=== PATIENT | female | born 1955 | race Caucasian/White ===

== ENCOUNTER 2023-06-22 12:57 | Outpatient (REF) | payer MEDICARE, SELFPAY ==
[2023-06-22 13:05] LABS: MANUAL DIFF FLAG NO
[2023-06-22 13:10] LABS: Basophils Percent Auto 0.3 % (0-2); Eosinophils Absolute Auto 0.1 X10*3/uL (0.0-0.4); Eosinophils Percent Auto 0.7 % (0-4); Hematocrit 26.1 % (37.0-47.0); Imm Gran Abs Auto 0.28 X10*3/uL (0.00-0.03); Imm Gran Pct Auto 1.8 % (0.0-0.4); Lymphocytes Absolute Auto 1.9 X10*3/uL (1.2-4.9); Lymphocytes Percent Auto 12.4 % (20-40); Mean Corpuscular HGB Conc 30.7 g/dl (31.0-35.0); Mean Corpuscular Hemoglobin 27.7 pg (27.0-33.0); Mean Corpuscular Volume 90.3 fL (80.0-98.0); Mean Platelet Volume 10.6 fL (9.4-12.3); Monocytes Percent Auto 6.2 % (2-11); NRBC Pct Auto 0.3 /100WBC (0.0-0.2); Neutrophils Absolute Auto 12.1 x10*3/uL (2.0-8.3); Neutrophils Percent Auto 78.6 % (45-73); Platelet Count 220 X10*3/uL (160-400); Red Blood Count 2.89 X10*6/uL (4.20-5.50); Red Cell Distribution Width 15.4 % (11.0-16.0); White Blood Count 15.4 X10*3/uL (4.8-10.8)
[2023-06-22 13:48] LABS: Erythrocyte Sedimentation Rate 56 MM/HR (0-20)
[2023-06-22 13:58] LABS: Alanine Aminotransferase 11 U/L (0-31); Alkaline Phosphatase 47 U/L (39-117); Anion Gap 15 (12-20); Aspartate Amino Transferase 17 U/L (5-31); Bilirubin Direct < 0.2 mg/dL (0.0-0.5); Bilirubin Total 0.1 mg/dL (0.0-1.0); Blood Urea Nitrogen 27 mg/dL (9-16); Calcium 8.8 mg/dL (8.4-10.2); Carbon Dioxide 23 mmol/L (22-29); Chloride 106 mmol/L (96-108); Estimated Glomerular Filt Rate 29; Glucose Random 173 mg/dL (60-115); Potassium 3.6 mmol/L (3.3-5.1); Sodium 140 mmol/L (135-145); Total Protein 4.9 g/dL (6.5-8.0)
== END 2023-06-22 12:58 | disposition home or self-care (01) ==
LOC: HO.HVNA 12:57
PROVIDERS: Visit Provider Internal Medicine Infectious Disease
DX: S21.109D Unspecified open wound of unspecified front wall of thorax without penetration into thoracic cavity, subsequent encounter (principal); Z79.2 Long term (current) use of antibiotics
CPT/HCPCS: 36415; 80048; 80076; 85025; 85652; 86140

== ENCOUNTER 2023-06-29 13:34 | Outpatient (REF) | payer MEDICARE, SELFPAY | END 2023-06-29 13:35 | disposition home or self-care (01) | LOC: HO.LNP 13:34 | PROVIDERS: Visit Provider Internal Medicine Infectious Disease | DX: S21.109D Unspecified open wound of unspecified front wall of thorax without penetration into thoracic cavity, subsequent encounter (principal); Z79.2 Long term (current) use of antibiotics; X58.XXXD Exposure to other specified factors, subsequent encounter | CPT/HCPCS: 80051; 80076; 82565; 82947; 84520; 85025; 85652; 86140 ==

== ENCOUNTER 2023-07-06 16:45 | Outpatient (REF) | payer MEDICARE, SELFPAY ==
[2023-07-06 16:51] LABS: MANUAL DIFF FLAG NO
[2023-07-06 16:55] LABS: Basophils Percent Auto 0.2 % (0-2); Eosinophils Percent Auto 0.2 % (0-4); Hematocrit 27.7 % (37.0-47.0); Hemoglobin 8.3 g/dl (12.0-16.0); Imm Gran Abs Auto 0.12 X10*3/uL (0.00-0.03); Lymphocytes Absolute Auto 0.8 X10*3/uL (1.2-4.9); Lymphocytes Percent Auto 6.8 % (20-40); Mean Corpuscular Volume 90.2 fL (80.0-98.0); Mean Platelet Volume 11.5 fL (9.4-12.3); Monocytes Absolute Auto 0.3 X10*3/uL (0.1-1.2); Monocytes Percent Auto 2.5 % (2-11); Neutrophils Absolute Auto 11.1 x10*3/uL (2.0-8.3); Neutrophils Percent Auto 89.3 % (45-73); Platelet Count 254 X10*3/uL (160-400); Red Blood Count 3.07 X10*6/uL (4.20-5.50); Red Cell Distribution Width 16.1 % (11.0-16.0); White Blood Count 12.4 X10*3/uL (4.8-10.8)
[2023-07-06 17:24] LABS: Alanine Aminotransferase 17 U/L (0-31); Albumin Level 3.3 g/dL (3.5-5.0); Alkaline Phosphatase 46 U/L (39-117); Anion Gap 16 (12-20); Aspartate Amino Transferase 30 U/L (5-31); Bilirubin Direct < 0.2 mg/dL (0.0-0.5); Bilirubin Total 0.1 mg/dL (0.0-1.0); Blood Urea Nitrogen 24 mg/dL (9-16); C Reactive Protein 0.49 mg/dL (< or = 0.50); Calcium 8.9 mg/dL (8.4-10.2); Carbon Dioxide 20 mmol/L (22-29); Chloride 104 mmol/L (96-108); Estimated Glomerular Filt Rate 32; Glucose Random 173 mg/dL (60-115); Potassium 4.1 mmol/L (3.3-5.1); Sodium 136 mmol/L (135-145); Total Protein 5.8 g/dL (6.5-8.0)
== END 2023-07-06 16:46 | disposition home or self-care (01) ==
LOC: HO.LNP 16:45
PROVIDERS: Visit Provider Internal Medicine Infectious Disease
DX: S21.109D Unspecified open wound of unspecified front wall of thorax without penetration into thoracic cavity, subsequent encounter (principal); X58.XXXD Exposure to other specified factors, subsequent encounter
CPT/HCPCS: 80053; 82248; 85025; 86140

== ENCOUNTER 2023-07-13 11:27 | Outpatient (REF) | payer MEDICARE, SELFPAY ==
[2023-07-13 11:38] LABS: MANUAL DIFF FLAG NO
[2023-07-13 11:50] LABS: Basophils Absolute Auto 0.1 X10*3/uL (0.0-0.2); Basophils Percent Auto 0.5 % (0-2); Eosinophils Absolute Auto 0.2 X10*3/uL (0.0-0.4); Eosinophils Percent Auto 1.5 % (0-4); Hemoglobin 8.7 g/dl (12.0-16.0); Imm Gran Abs Auto 0.09 X10*3/uL (0.00-0.03); Imm Gran Pct Auto 0.8 % (0.0-0.4); Lymphocytes Absolute Auto 2.3 X10*3/uL (1.2-4.9); Lymphocytes Percent Auto 18.9 % (20-40); Mean Corpuscular HGB Conc 31.1 g/dl (31.0-35.0); Mean Corpuscular Hemoglobin 27.4 pg (27.0-33.0); Mean Corpuscular Volume 88.3 fL (80.0-98.0); Mean Platelet Volume 11.5 fL (9.4-12.3); Monocytes Absolute Auto 0.9 X10*3/uL (0.1-1.2); Monocytes Percent Auto 7.2 % (2-11); Neutrophils Absolute Auto 8.5 x10*3/uL (2.0-8.3); Neutrophils Percent Auto 71.1 % (45-73); Platelet Count 273 X10*3/uL (160-400); Red Blood Count 3.17 X10*6/uL (4.20-5.50); Red Cell Distribution Width 15.7 % (11.0-16.0)
[2023-07-13 12:20] LABS: Alanine Aminotransferase 21 U/L (0-31); Albumin Level 3.3 g/dL (3.5-5.0); Alkaline Phosphatase 51 U/L (39-117); Anion Gap 12 (12-20); Aspartate Amino Transferase 23 U/L (5-31); Bilirubin Direct < 0.2 mg/dL (0.0-0.5); Bilirubin Total 0.2 mg/dL (0.0-1.0); Blood Urea Nitrogen 19 mg/dL (9-16); C Reactive Protein 0.53 mg/dL (< or = 0.50); Calcium 9.4 mg/dL (8.4-10.2); Carbon Dioxide 27 mmol/L (22-29); Chloride 106 mmol/L (96-108); Estimated Glomerular Filt Rate 35; Glucose Random 109 mg/dL (60-115); Potassium 4.1 mmol/L (3.3-5.1); Sodium 141 mmol/L (135-145); Total Protein 5.8 g/dL (6.5-8.0)
[2023-07-13 15:10] LABS: Erythrocyte Sedimentation Rate 38 MM/HR (0-20)
== END 2023-07-13 11:28 | disposition home or self-care (01) ==
LOC: HO.HVNA 11:27
PROVIDERS: Visit Provider Internal Medicine Infectious Disease
DX: S21.109D Unspecified open wound of unspecified front wall of thorax without penetration into thoracic cavity, subsequent encounter (principal); X58.XXXD Exposure to other specified factors, subsequent encounter
CPT/HCPCS: 36415; 80053; 82248; 85025; 85652; 86140

== ENCOUNTER 2023-07-20 13:34 | Outpatient (REF) | payer MEDICARE, SELFPAY ==
[2023-07-20 13:41] LABS: MANUAL DIFF FLAG NO
[2023-07-20 13:46] LABS: Basophils Absolute Auto 0.1 X10*3/uL (0.0-0.2); Basophils Percent Auto 0.5 % (0-2); Eosinophils Absolute Auto 0.3 X10*3/uL (0.0-0.4); Eosinophils Percent Auto 2.1 % (0-4); Hematocrit 26.1 % (37.0-47.0); Imm Gran Pct Auto 0.8 % (0.0-0.4); Lymphocytes Absolute Auto 1.8 X10*3/uL (1.2-4.9); Lymphocytes Percent Auto 14.3 % (20-40); Mean Corpuscular HGB Conc 30.7 g/dl (31.0-35.0); Mean Corpuscular Hemoglobin 26.6 pg (27.0-33.0); Mean Corpuscular Volume 86.7 fL (80.0-98.0); Mean Platelet Volume 11.2 fL (9.4-12.3); Monocytes Absolute Auto 0.9 X10*3/uL (0.1-1.2); Monocytes Percent Auto 7.3 % (2-11); Neutrophils Absolute Auto 9.3 x10*3/uL (2.0-8.3); Platelet Count 244 X10*3/uL (160-400); Red Blood Count 3.01 X10*6/uL (4.20-5.50); Red Cell Distribution Width 15.5 % (11.0-16.0); White Blood Count 12.4 X10*3/uL (4.8-10.8)
[2023-07-20 14:12] LABS: Alanine Aminotransferase 14 U/L (0-31); Albumin Level 3.2 g/dL (3.5-5.0); Alkaline Phosphatase 54 U/L (39-117); Anion Gap 14 (12-20); Aspartate Amino Transferase 18 U/L (5-31); Bilirubin Direct < 0.2 mg/dL (0.0-0.5); Bilirubin Total 0.2 mg/dL (0.0-1.0); Blood Urea Nitrogen 24 mg/dL (9-16); C Reactive Protein 4.04 mg/dL (< or = 0.50); Carbon Dioxide 24 mmol/L (22-29); Chloride 105 mmol/L (96-108); Estimated Glomerular Filt Rate 32; Glucose Random 123 mg/dL (60-115); Potassium 4.1 mmol/L (3.3-5.1); Sodium 139 mmol/L (135-145); Total Protein 5.3 g/dL (6.5-8.0)
[2023-07-20 14:23] LABS: Erythrocyte Sedimentation Rate 53 MM/HR (0-20)
== END 2023-07-20 13:35 | disposition home or self-care (01) ==
LOC: HO.HVNA 13:34
PROVIDERS: Visit Provider Internal Medicine Infectious Disease
DX: S21.109D Unspecified open wound of unspecified front wall of thorax without penetration into thoracic cavity, subsequent encounter (principal); X58.XXXD Exposure to other specified factors, subsequent encounter
CPT/HCPCS: 36415; 80053; 82248; 85025; 85652; 86140

== ENCOUNTER 2023-07-27 14:31 | Outpatient (REF) | payer MEDICARE, SELFPAY ==
[2023-07-27 14:40] LABS: Basophils Percent Auto 0.1 % (0-2); Eosinophils Percent Auto 0.2 % (0-4); Hematocrit 28.5 % (37.0-47.0); Hemoglobin 8.6 g/dl (12.0-16.0); Imm Gran Pct Auto 0.7 % (0.0-0.4); Lymphocytes Absolute Auto 0.7 X10*3/uL (1.2-4.9); Lymphocytes Percent Auto 4.8 % (20-40); MANUAL DIFF FLAG SCAN; Mean Corpuscular HGB Conc 30.2 g/dl (31.0-35.0); Mean Corpuscular Hemoglobin 26.2 pg (27.0-33.0); Mean Corpuscular Volume 86.9 fL (80.0-98.0); Mean Platelet Volume 10.7 fL (9.4-12.3); Monocytes Absolute Auto 0.3 X10*3/uL (0.1-1.2); Neutrophils Absolute Auto 12.9 x10*3/uL (2.0-8.3); Neutrophils Percent Auto 92.2 % (45-73); Platelet Count 263 X10*3/uL (160-400); Red Blood Count 3.28 X10*6/uL (4.20-5.50); Red Cell Distribution Width 15.3 % (11.0-16.0); SCAN SMEAR FLAG 1
[2023-07-27 15:21] LABS: Erythrocyte Sedimentation Rate 53 MM/HR (0-20)
[2023-07-27 15:28] LABS: Alanine Aminotransferase 14 U/L (0-31); Albumin Level 3.5 g/dL (3.5-5.0); Alkaline Phosphatase 62 U/L (39-117); Anion Gap 13 (12-20); Aspartate Amino Transferase 20 U/L (5-31); Bilirubin Total 0.2 mg/dL (0.0-1.0); Blood Urea Nitrogen 25 mg/dL (9-16); C Reactive Protein 4.52 mg/dL (< or = 0.50); Calcium 9.1 mg/dL (8.4-10.2); Carbon Dioxide 23 mmol/L (22-29); Chloride 102 mmol/L (96-108); Estimated Glomerular Filt Rate 28; Glucose Random 257 mg/dL (60-115); Potassium 4.3 mmol/L (3.3-5.1); Sodium 134 mmol/L (135-145); Total Protein 6.2 g/dL (6.5-8.0)
[2023-07-27 15:33] LABS: SLIDE REVIEW VERIFIED
== END 2023-07-27 14:32 | disposition home or self-care (01) ==
LOC: HO.HVNA 14:31
PROVIDERS: Visit Provider Internal Medicine Infectious Disease
DX: S21.109D Unspecified open wound of unspecified front wall of thorax without penetration into thoracic cavity, subsequent encounter (principal); X58.XXXD Exposure to other specified factors, subsequent encounter
CPT/HCPCS: 36415; 80053; 85025; 85652; 86140

== ENCOUNTER 2023-07-29 10:52 | Outpatient (AMB) | payer MEDICARE, SELFPAY ==
[2023-07-29 10:59] VITALS: BP 120/70; BMI 29.1
--- NOTE | 2023-07-29 10:59 | HO.NEPHOV_ITS ---
HPI HPI Comments History of Present Illness Details I had the privilege of seeing Frida in follow-up of her chronic kidney disease. She recently was admitted with a right-sided chest/clavicle pain and erythema. CT chest and soft tissue of the neck was obtained which showed sternal dehiscence with erosive changes, suggestive for osteomyelitis with overlying cellulitis. She also had a few foci of gas, septic arthritis of the left sternoclavicular joint with associated effusion suggestive of possible right sternal clavicular joint septic arthritis. She underwent sternal wound debridement, sternal wire removal, washout, wound VAC placement with Dr. Plaafox . Intraoperative findings showed a sinus tract of only 2-3 mm. Culture was positive for acute osteomyelitis. She return to operating room on 16 of June for repeat washout. Cultures later showed no growth & therefore was treated with a 6 weeks of ceftriaxone and 3 weeks of metronidazole. She was closely followed up by Infectious Disease as well as Cardiac surgery. She is due to have wound VAC removal and sternal flap tomorrow. She denies any night sweats, fever, fatigue, nausea vomiting or diarrhea. [facility] Medical History (Updated 07/29/23 @ 11:26 by Sreekanth Avalos MD) Hypertension Rheumatoid arthritis Chronic kidney disease, stage 3b Surgical History (Updated 07/29/23 @ 10:57 by Winter Berry MA) S/P AVR S/P CABG (coronary artery bypass graft) Family History (Updated 07/29/23 @ 11:06 by Winter Berry MA) Mother Hypertension Social History (Updated 07/29/23 @ 11:05 by Winter Berry MA) Alcohol intake: never Patient Tobacco Use Status: Never used Tobacco Vital Signs 07/29/23 10:59 Height 5 ft 2 in Weight 159 lb 4 oz BMI 29.1 BP 120/70 Blood Pressure Location Lt brachial Position Sitting Physical Exam Vital Signs: Last Vital Signs BP 120/70 07/29/23 10:59 BMI result Body Mass Index 29.1 Const Other: Has a wound vac on her sternum General: comfortable and no acute distress Orientation/consciousness: patient oriented x3 HEENT Head: Yes normocephalic Mouth: Normal oral and palatal mucosa present Eyes EOM: EOMs intact bilaterally Neck Neck: Yes supple Resp Auscultation: clear to auscultation bilaterally Cardio Jugular venous distension: no JVD Rate: regular rate Heart sounds: Murmur heart sound present GI Palpation (GI): Soft to palpation Auscultation: normal bowel sounds General: Yes no CVA tenderness Back/Spine/Pelvis Back: no CVA tenderness Skin General skin exam: no rashes or lesions noted Neuro General: patient oriented x3 and moves all extremities Extrem General: Yes no pedal edema Assessment & Plan Assessment & Plan (1) Chronic kidney disease, stage 3b: Code(s): N18.32 - Chronic kidney disease, stage 3b (2) Hypertension: Code(s): I10 - Essential (primary) hypertension Plan Frida has a chronic kidney disease due to vascular disease. She has longstanding history of rheumatoid arthritis. She had ATN during her cardiac surgery and postoperatively. Her leflunomide had been on hold. She has no significant proteinuria. Her blood pressure has been at goal. Her urine output is good. Her volume status is optimal. She has a sternal wound vac which is going to be removed along with reconstruction surgery tomorrow. She does not take any nonsteroidal anti-inflammatory medications. I plan to do a Doppler of her renal arteries with time. All her and her 's questions were answered. Follow-up blood work ordered. Time spent during encounter, retrieval of data and documentation 31 minutes. Orders: Orders Electrolytes Today I10 - Essential (primary) hypertension, N18.32 - Chronic kidney disease, stage 3b Blood Urea Nitrogen Today I10 - Essential (primary) hypertension, N18.32 - Chronic kidney disease, stage 3b Creatinine Today I10 - Essential (primary) hypertension, N18.32 - Chronic kidney disease, stage 3b Calcium Today I10 - Essential (primary) hypertension, N18.32 - Chronic kidney disease, stage 3b Complete Blood Count Auto Diff Today I10 - Essential (primary) hypertension, N18.32 - Chronic kidney disease, stage 3b Coding Level of Care Code Est Pt Level 4 (90399) Diagnoses Chronic kidney disease, stage 3b N18.32 Hypertension I10
== END 2023-07-29 11:30 | disposition home or self-care (01) ==
PROVIDERS: Visit Provider Internal Medicine Nephrology
DX: N18.32 Chronic kidney disease, stage 3b (principal); I12.9 Hypertensive chronic kidney disease with stage 1 through stage 4 chronic kidney disease, or unspecified chronic kidney disease
CPT/HCPCS: 99214

== ENCOUNTER → 2023-07-29 10:52 | Outpatient (BNVA) | payer MEDICARE, SELFPAY | PROVIDERS: Visit Provider Internal Medicine Nephrology | DX: I12.9 Hypertensive chronic kidney disease with stage 1 through stage 4 chronic kidney disease, or unspecified chronic kidney disease (principal); N18.32 Chronic kidney disease, stage 3b | CPT/HCPCS: 99212 ==

== ENCOUNTER 2023-08-03 14:24 | Outpatient (REF) | payer MEDICARE, SELFPAY ==
[2023-08-03 14:32] LABS: MANUAL DIFF FLAG NO
[2023-08-03 14:35] LABS: Basophils Absolute Auto 0.1 X10*3/uL (0.0-0.2); Basophils Percent Auto 0.4 % (0-2); Eosinophils Absolute Auto 0.2 X10*3/uL (0.0-0.4); Eosinophils Percent Auto 1.6 % (0-4); Hematocrit 22.7 % (37.0-47.0); Imm Gran Abs Auto 0.08 X10*3/uL (0.00-0.03); Imm Gran Pct Auto 0.6 % (0.0-0.4); Lymphocytes Absolute Auto 0.9 X10*3/uL (1.2-4.9); Lymphocytes Percent Auto 7.2 % (20-40); Mean Corpuscular HGB Conc 30.4 g/dl (31.0-35.0); Mean Corpuscular Hemoglobin 26.1 pg (27.0-33.0); Mean Platelet Volume 11.3 fL (9.4-12.3); Monocytes Absolute Auto 0.5 X10*3/uL (0.1-1.2); Neutrophils Absolute Auto 10.8 x10*3/uL (2.0-8.3); Neutrophils Percent Auto 86.2 % (45-73); Platelet Count 207 X10*3/uL (160-400); Red Blood Count 2.64 X10*6/uL (4.20-5.50); Red Cell Distribution Width 15.5 % (11.0-16.0); White Blood Count 12.5 X10*3/uL (4.8-10.8)
[2023-08-03 14:54] LABS: Hemoglobin 6.9 g/dl (12.0-16.0)
[2023-08-03 15:15] LABS: Erythrocyte Sedimentation Rate 64 MM/HR (0-20)
[2023-08-03 15:21] LABS: Alanine Aminotransferase 7 U/L (0-31); Albumin Level 2.6 g/dL (3.5-5.0); Alkaline Phosphatase 45 U/L (39-117); Anion Gap 11 (12-20); Aspartate Amino Transferase 17 U/L (5-31); Bilirubin Direct 0.1 mg/dL (0.0-0.5); Bilirubin Total 0.3 mg/dL (0.0-1.0); Blood Urea Nitrogen 27 mg/dL (9-16); C Reactive Protein 13.44 mg/dL (< or = 0.50); Calcium 8.1 mg/dL (8.4-10.2); Carbon Dioxide 26 mmol/L (22-29); Chloride 103 mmol/L (96-108); Estimated Glomerular Filt Rate 29; Glucose Random 108 mg/dL (60-115); Potassium 4.2 mmol/L (3.3-5.1); Sodium 136 mmol/L (135-145); Total Protein 4.4 g/dL (6.5-8.0)
== END 2023-08-03 14:25 | disposition home or self-care (01) ==
LOC: HO.HVNA 14:24
PROVIDERS: Visit Provider Internal Medicine Infectious Disease
DX: S21.109D Unspecified open wound of unspecified front wall of thorax without penetration into thoracic cavity, subsequent encounter (principal); X58.XXXD Exposure to other specified factors, subsequent encounter
CPT/HCPCS: 36415; 80053; 82248; 85025; 85652; 86140

== ENCOUNTER 2023-08-10 14:06 | Outpatient (REF) | payer MEDICARE, SELFPAY ==
[2023-08-10 14:10] LABS: MANUAL DIFF FLAG NO
[2023-08-10 14:18] LABS: Basophils Absolute Auto 0.1 X10*3/uL (0.0-0.2); Basophils Percent Auto 0.4 % (0-2); Eosinophils Absolute Auto 0.2 X10*3/uL (0.0-0.4); Eosinophils Percent Auto 1.5 % (0-4); Hematocrit 26.7 % (37.0-47.0); Hemoglobin 8.1 g/dl (12.0-16.0); Imm Gran Pct Auto 0.8 % (0.0-0.4); Lymphocytes Absolute Auto 1.2 X10*3/uL (1.2-4.9); Lymphocytes Percent Auto 9.7 % (20-40); Mean Corpuscular HGB Conc 30.3 g/dl (31.0-35.0); Mean Corpuscular Volume 85.9 fL (80.0-98.0); Mean Platelet Volume 11.6 fL (9.4-12.3); Monocytes Absolute Auto 0.5 X10*3/uL (0.1-1.2); Monocytes Percent Auto 3.6 % (2-11); NRBC Pct Auto 0.2 /100WBC (0.0-0.2); Neutrophils Absolute Auto 10.4 x10*3/uL (2.0-8.3); Platelet Count 260 X10*3/uL (160-400); Red Blood Count 3.11 X10*6/uL (4.20-5.50); Red Cell Distribution Width 16.5 % (11.0-16.0); White Blood Count 12.3 X10*3/uL (4.8-10.8)
[2023-08-10 14:58] LABS: Erythrocyte Sedimentation Rate 53 MM/HR (0-20)
[2023-08-10 15:11] LABS: Alanine Aminotransferase 9 U/L (0-31); Albumin Level 2.9 g/dL (3.5-5.0); Alkaline Phosphatase 50 U/L (39-117); Anion Gap 10 (12-20); Aspartate Amino Transferase 23 U/L (5-31); Bilirubin Direct < 0.2 mg/dL (0.0-0.5); Bilirubin Total 0.2 mg/dL (0.0-1.0); Blood Urea Nitrogen 25 mg/dL (9-16); C Reactive Protein 3.12 mg/dL (< or = 0.50); Calcium 8.6 mg/dL (8.4-10.2); Carbon Dioxide 27 mmol/L (22-29); Chloride 103 mmol/L (96-108); Estimated Glomerular Filt Rate 31; Glucose Random 85 mg/dL (60-115); Potassium 4.1 mmol/L (3.3-5.1); Sodium 136 mmol/L (135-145); Total Protein 5.5 g/dL (6.5-8.0)
== END 2023-08-10 14:07 | disposition home or self-care (01) ==
LOC: HO.HVNA 14:06
PROVIDERS: Visit Provider Internal Medicine Infectious Disease
DX: S91.109D Unspecified open wound of unspecified toe(s) without damage to nail, subsequent encounter (principal); X58.XXXD Exposure to other specified factors, subsequent encounter
CPT/HCPCS: 36415; 80053; 82248; 85025; 85652; 86140

== ENCOUNTER 2023-09-07 11:16 | Outpatient (AMB) | payer MEDICARE, SELFPAY ==
--- NOTE | 2023-09-07 11:26 | HO.NEPHOV_ITS ---
HPI HPI Comments History of Present Illness Details I had the privilege of seeing Frida in follow-up of her chronic kidney disease. She had right sternal clavicular joint septic arthritis. She underwent sternal wound debridement, sternal wire removal, washout, wound VAC placement with Dr. Palafox . She was treated with a 6 weeks of ceftriaxone and 3 weeks of metronidazole. She was closely followed up by Infectious Disease as well as Cardiac surgery. She had wound VAC removal and sternal flap. She denies any night sweats, fever, fatigue, nausea vomiting or diarrhea.She feels improved. Her last serum creatinine was around 1.6 PFSH Medical History (Updated 09/07/23 @ 13:58 by Sreekanth Avalos MD) Hypertension Rheumatoid arthritis Chronic kidney disease, stage 3b Surgical History S/P AVR S/P CABG (coronary artery bypass graft) Family History Mother Hypertension Social History Alcohol intake: never Patient Tobacco Use Status: Never used Tobacco Vital Signs 09/07/23 11:27 Height 5 ft 2 in Weight 153 lb 2 oz BMI 28.0 BP 126/82 Blood Pressure Location Lt brachial Position Sitting Physical Exam Vital Signs: Last Vital Signs BP 126/82 09/07/23 11:27 BMI result Body Mass Index 28.0 Const General: comfortable and no acute distress Orientation/consciousness: patient oriented x3 HEENT Head: Yes normocephalic Mouth: Normal oral and palatal mucosa present Eyes EOM: EOMs intact bilaterally Neck Neck: Yes supple Resp Auscultation: clear to auscultation bilaterally Cardio Jugular venous distension: no JVD Rate: regular rate GI Palpation (GI): Soft to palpation Auscultation: normal bowel sounds General: Yes no CVA tenderness Back/Spine/Pelvis Back: no CVA tenderness Skin General skin exam: no rashes or lesions noted Neuro General: patient oriented x3 and moves all extremities Extrem General: Yes no pedal edema Assessment & Plan Assessment & Plan (1) Chronic kidney disease, stage 3b: Code(s): N18.32 - Chronic kidney disease, stage 3b (2) Hypertension: Code(s): I10 - Essential (primary) hypertension Qualifiers: Hypertension type: primary hypertension Qualified Code(s): I10 - Essential (primary) hypertension Plan Frida has a chronic kidney disease due to vascular disease. She has longstanding history of rheumatoid arthritis. She had ATN during her cardiac surgery and postoperatively. Her leflunomide had been on hold. She has no significant proteinuria. Her blood pressure has been at goal. Her urine output is good. Her volume status is optimal. She does not take any nonsteroidal anti- inflammatory medications. I plan to do a Doppler of her renal arteries with time. All her and her 's questions were answered. No medicaitons were changed today.Follow-up blood work ordered; F/U given Orders: Orders Electrolytes Today I10 - Essential (primary) hypertension, N18.32 - Chronic kidney disease, stage 3b Protein Creatinine Ratio, Ur Today I10 - Essential (primary) hypertension, N18.32 - Chronic kidney disease, stage 3b Complete Blood Count Auto Diff Today I10 - Essential (primary) hypertension, N18.32 - Chronic kidney disease, stage 3b Creatinine Today I10 - Essential (primary) hypertension, N18.32 - Chronic kidney disease, stage 3b Blood Urea Nitrogen Today I10 - Essential (primary) hypertension, N18.32 - Chronic kidney disease, stage 3b Medications: New ferrous sulfate 325 mg PO BID 180 tabs 3RF 90 days Coding Level of Care Code Est Pt Level 3 (97258) Diagnoses Chronic kidney disease, stage 3b N18.32 Primary hypertension I10 Hypertension type: primary hypertension Results Reviewed Nephrology Results: Hgb 8.1 g/dl (12.0-16.0) L 08/10/23 WBC 12.3 X10*3/uL (4.8-10.8) H 08/10/23 Plt Count 260 X10*3/uL (160-400) 08/10/23 Sodium 136 mmol/L (135-145) 08/10/23 Potassium 4.1 mmol/L (3.3-5.1) 08/10/23 Chloride 103 mmol/L (96-108) 08/10/23 Carbon Dioxide 27 mmol/L (22-29) 08/10/23 BUN 25 mg/dL (9-16) H 08/10/23 Creatinine 1.64 mg/dL (0.5-1.4) H 08/10/23 Calcium 8.6 mg/dL (8.4-10.2) 08/10/23
[2023-09-07 11:27] VITALS: BP 126/82; BMI 28.0
== END 2023-09-07 11:58 | disposition home or self-care (01) ==
PROVIDERS: Visit Provider Internal Medicine Nephrology
DX: N18.32 Chronic kidney disease, stage 3b (principal); I10 Essential (primary) hypertension
CPT/HCPCS: 99213

== ENCOUNTER → 2023-09-07 11:16 | Outpatient (BNVA) | payer MEDICARE, SELFPAY | PROVIDERS: Visit Provider Internal Medicine Nephrology | DX: I12.9 Hypertensive chronic kidney disease with stage 1 through stage 4 chronic kidney disease, or unspecified chronic kidney disease (principal); N18.32 Chronic kidney disease, stage 3b | CPT/HCPCS: 99212 ==

== ENCOUNTER 2024-01-21 11:28 | Outpatient (AMB) | payer MEDICARE, SELFPAY ==
--- NOTE | 2024-01-21 12:14 | HO.NEPHOV_ITS ---
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 She had right sternal clavicular joint septic arthritis & underwent sternal wound debridement, sternal wire removal, washout, wound VAC placement with Dr. Palafox . She was treated with a 6 weeks of ceftriaxone and 3 weeks of metro nidazole. She was closely followed up by Infectious Disease as well as Cardiac surgery. She had wound VAC removal and sternal flap. She denies any night sweats, fever, fatigue, nausea vomiting or diarrhea.She feels tired. Her last serum creatinine was around 1.6 . Her Hb has been around 8.0. She is still getting Rheumatoid arthritis flare. She remains on Arava and lower dose of prednsione. She has been having migraine intermittently and wants to see a Neurologist [facility] Medical History (Updated 01/21/24 @ 13:21 by Sreekanth Avalos MD) Hypertension Rheumatoid arthritis Chronic kidney disease, stage 3b Surgical History S/P AVR S/P CABG (coronary artery bypass graft) Family History Mother Hypertension Social History Alcohol intake: never Patient Tobacco Use Status: Never used Tobacco Physical Exam Vital Signs: Last Vital Signs Pulse 78 01/21/24 12:15 BP 118/70 01/21/24 12:15 Pulse Ox 98 01/21/24 12:15 Oxygen Delivery Method Room Air 01/21/24 12:15 BMI result Body Mass Index 26.2 Const General: comfortable and no acute distress Orientation/consciousness: patient oriented x3 HEENT Head: Yes normocephalic Mouth: Normal oral and palatal mucosa present Eyes EOM: EOMs intact bilaterally Neck Neck: Yes supple Resp Auscultation: clear to auscultation bilaterally Cardio Jugular venous distension: no JVD Rate: regular rate GI Palpation (GI): Soft to palpation Auscultation: normal bowel sounds General: Yes no CVA tenderness Back/Spine/Pelvis Back: no CVA tenderness Skin General skin exam: no rashes or lesions noted Neuro General: patient oriented x3 and moves all extremities Extrem General: Yes no pedal edema Assessment & Plan Assessment & Plan (1) Chronic kidney disease, stage 3b: Code(s): N18.32 - Chronic kidney disease, stage 3b Category: Medical (2) Hypertension: Code(s): I10 - Essential (primary) hypertension Category: Medical Qualifiers: Hypertension type: primary hypertension Qualified Code(s): I10 - Essential (primary) hypertension (3) Anemia of chronic disease: Code(s): D63.8 - Anemia in other chronic diseases classified elsewhere Category: Medical (4) Migraine: Code(s): G43.909 - Migraine, unspecified, not intractable, without status migrainosus Category: Medical Qualifiers: Migraine type: unspecified Status migrainosus presence: without status migrainosus Intractability: not intractable Qualified Code(s): G43.909 - Migraine, unspecified, not intractable, without status migrainosus Plan Frida has a chronic kidney disease due to vascular disease. She has longstanding history of rheumatoid arthritis. She had ATN during her cardiac surgery and postoperatively. Her renal functions are back to baseline . She is back on leflunomide . She has mild proteinuria. Her blood pressure has been at goal. Her urine output is good. Her volume status is optimal. She does not take any nonsteroidal anti-inflammatory medications. I plan to do a Doppler of her renal arteries with time. All her and her 's questions were answered. She needs work up for anemia. Needs to R/O blood loss given H/O colitis/ needs to R/O hemolysis given RA. No medications were changed today.Follow-up blood work ordered; Referred her to [facility] Neurology. F/U given Orders: Orders Creatinine Today I10 - Essential (primary) hypertension, N18.32 - Chronic kidney disease, stage 3b Blood Urea Nitrogen Today I10 - Essential (primary) hypertension, N18.32 - Chronic kidney disease, stage 3b Electrolytes Today I10 - Essential (primary) hypertension, N18.32 - Chronic kidney disease, stage 3b Referrals Neurology Referral G43.909 - Migraine, unspecified, not intractable, without status migrainosus Coding Level of Care Code Est Pt Level 4 (39547) Diagnoses Chronic kidney disease, stage 3b N18.32 Primary hypertension I10 Hypertension type: primary hypertension Anemia of chronic disease D63.8 Migraine without status migrainosus, not intractable, unspecified migraine type G43.909 Migraine type: unspecified Status migrainosus presence: without status migrainosus Intractability: not intractable
[2024-01-21 12:15] VITALS: BP 118/70; PULSE 78; O2SAT 98; BMI 26.2
== END 2024-01-21 12:49 | disposition home or self-care (01) ==
PROVIDERS: Visit Provider Internal Medicine Nephrology
DX: N18.32 Chronic kidney disease, stage 3b (principal); I10 Essential (primary) hypertension; D63.8 Anemia in other chronic diseases classified elsewhere; G43.909 Migraine, unspecified, not intractable, without status migrainosus
CPT/HCPCS: 99214

== ENCOUNTER → 2024-01-21 11:28 | Outpatient (BNVA) | payer MEDICARE, SELFPAY | PROVIDERS: Visit Provider Internal Medicine Nephrology | DX: I12.9 Hypertensive chronic kidney disease with stage 1 through stage 4 chronic kidney disease, or unspecified chronic kidney disease (principal); N18.32 Chronic kidney disease, stage 3b; D63.8 Anemia in other chronic diseases classified elsewhere; G43.909 Migraine, unspecified, not intractable, without status migrainosus | CPT/HCPCS: 99212 ==

== ENCOUNTER 2024-05-26 11:55 | Outpatient (AMB) | payer MEDICARE, SELFPAY ==
--- NOTE | 2024-05-26 12:24 | HO.NEPHOV_ITS ---
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 She has H/O right sternal clavicular joint septic arthritis & underwent sternal wound debridement, sternal wire removal, washout, wound VAC placement with Dr. Palafox . She was treated with a 6 weeks of ceftriaxone and 3 weeks of metro nidazole. She denies any night sweats, fever, fatigue, nausea vomiting or diarrhea. She had fracture of femur which needed surgical correction. She feels tired. Her last serum creatinine was around 1.7 . She remains on Arava and is off prednsione. Her BP had gone up lately and has been started on Amlodipine in addition to current dose of Carvedilol [facility] Medical History (Updated 01/21/24 @ 13:21 by Sreekanth Avalos MD) Hypertension Rheumatoid arthritis Chronic kidney disease, stage 3b Surgical History S/P AVR S/P CABG (coronary artery bypass graft) Family History Mother Hypertension Social History Alcohol intake: never Patient Tobacco Use Status: Never used Tobacco Review of Systems Const All systems reviewed & are unremarkable except as noted in HPI and below Physical Exam Vital Signs: Last Vital Signs BP 130/72 05/26/24 12:25 BMI result Body Mass Index 24.5 Const General: comfortable and no acute distress Orientation/consciousness: patient oriented x3 HEENT Head: Yes normocephalic Mouth: Normal oral and palatal mucosa present Eyes EOM: EOMs intact bilaterally Neck Neck: Yes supple Resp Auscultation: clear to auscultation bilaterally Cardio Jugular venous distension: no JVD Rate: regular rate GI Palpation (GI): Soft to palpation Auscultation: normal bowel sounds General: Yes no CVA tenderness Back/Spine/Pelvis Back: no CVA tenderness Skin General skin exam: no rashes or lesions noted Neuro General: patient oriented x3 and moves all extremities Extrem General: Yes no pedal edema Assessment & Plan Assessment & Plan (1) Chronic kidney disease, stage 3b: Code(s): N18.32 - Chronic kidney disease, stage 3b Category: Medical (2) Hypertension: Code(s): I10 - Essential (primary) hypertension Category: Medical Qualifiers: Hypertension type: primary hypertension Qualified Code(s): I10 - Essential (primary) hypertension (3) Anemia of chronic disease: Code(s): D63.8 - Anemia in other chronic diseases classified elsewhere Category: Medical Plan Frida has a chronic kidney disease due to vascular disease. She has longstanding history of rheumatoid arthritis. She had ATN during her cardiac surgery and postoperatively. Her renal functions are back to baseline . She is back on leflunomide . She has mild proteinuria. Her blood pressure has not been at goal but improved on addition of Amlodipine 5 mg daily in addition to current dose of Carvedilol. Her urine output is good. Her volume status is optimal. She does not take any nonsteroidal anti-inflammatory medications. I plan to do a Doppler of her renal arteries with time. All her and her 's questions were answered. No medications were changed today.Follow-up blood work ordered; F/U given Orders: Orders Blood Urea Nitrogen Today D63.8 - Anemia in other chronic diseases classified elsewhere, I10 - Essential (primary) hypertension, N18.32 - Chronic kidney disease, stage 3b Electrolytes Today D63.8 - Anemia in other chronic diseases classified elsewhere, I10 - Essential (primary) hypertension, N18.32 - Chronic kidney disease, stage 3b Creatinine Today D63.8 - Anemia in other chronic diseases classified elsewhere, I10 - Essential (primary) hypertension, N18.32 - Chronic kidney disease, stage 3b Coding Level of Care Code Est Pt Level 4 (30401) Diagnoses Chronic kidney disease, stage 3b N18.32 Primary hypertension I10 Hypertension type: primary hypertension Anemia of chronic disease D63.8
[2024-05-26 12:25] VITALS: BP 130/72; BMI 24.5
== END 2024-05-26 12:47 | disposition home or self-care (01) ==
PROVIDERS: Visit Provider Internal Medicine Nephrology
DX: N18.32 Chronic kidney disease, stage 3b (principal); I10 Essential (primary) hypertension; D63.8 Anemia in other chronic diseases classified elsewhere
CPT/HCPCS: 99214

== ENCOUNTER → 2024-05-26 11:55 | Outpatient (BNVA) | payer MEDICARE, SELFPAY | PROVIDERS: Visit Provider Internal Medicine Nephrology | DX: I12.9 Hypertensive chronic kidney disease with stage 1 through stage 4 chronic kidney disease, or unspecified chronic kidney disease (principal); N18.32 Chronic kidney disease, stage 3b; D63.8 Anemia in other chronic diseases classified elsewhere | CPT/HCPCS: 99212 ==

== ENCOUNTER 2024-08-02 09:15 | Outpatient (AMB) | payer MEDICARE, SELFPAY ==
[2024-08-02 09:20] VITALS: BP 122/80; BMI 24.5
--- NOTE | 2024-08-02 09:20 | MHC.OFFVIS ---
Vital Signs 08/02/24 09:20 Height 5 ft 2 in Weight 134 lb BMI 24.5 BP 122/80 Blood Pressure Location Rt brachial Position Sitting Intake Visit Reasons: ENP-Migraines Intake Note: Patient presents for migraines Allergies oxaprozin Allergy (Verified 08/02/24 09:22) Unknown Penicillins Allergy (Verified 08/02/24 09:22) Unknown sumatriptan Allergy (Verified 08/02/24 09:22) Unknown tamoxifen Allergy (Verified 08/02/24 09:22) Unknown Medication List - Last Reconciled 08/02/24 by Silvia Henry MD acetaminophen 975 mg PO Q8H amitriptyline 10 mg PO BEDTIME amlodipine 5 mg PO DAILY amlodipine 5 mg PO DAILY aspirin 81 mg PO DAILY carvedilol 25 mg PO BID cholestyramine (with sugar) 4 gram ea PO DAILY dicyclomine 10 mg PO DAILY PRN ferrous sulfate 325 mg PO BID 90 days fluoxetine 20 mg PO DAILY leflunomide 20 mg PO DAILY metronidazole 500 mg PO TID omeprazole 40 mg PO BID prednisone 10 mg PO DAILY rosuvastatin 20 mg PO BEDTIME ubrogepant (Ubrelvy) 1 tab at onset , can be repeated in 2 hrs if needed , maximum 4 tabs a day orally PRN; TRIPTANS CONTRAINDICATED because of her cardiac disease HPI Comments Details: 69y/o female comes for further management of headaches.she has had headaches all her life but became more noticeable in her 30s. she was on fioricet , codiene at that time, later she was tried on sumatriptan, she also self treated with excedrin migraine.. she was seeing Dr. Padgett for a few years. she does not recall being on a any prophylactics medications. she has headaches with visual aura but sometimes visual aura without headaches. The visual aura starts with eye pressure and sees bright squiggly lines and can last 1-3days per week .This happens 1-3 days a week Sometimes she has headaches 2 hrs after she has visual aura -unilateral temporal parietal pounding pressure with nausea , occasional vomiting, photophobia, phonophobia, dizziness. These episodes can last 1-3 days.These episodes of migraines with aura happens 1-3 days a month. Apart from these she also has mild daily headaches- usually occipital , neck and side , has nausea sometimes. No light or noise sensitivity. she does not recall any fh/o headaches Her son has migraines with visual aura. [facility] Medical History (Updated 08/02/24 @ 10:05 by Silvia Henry MD) Chronic daily headache Migraine headache with aura Ocular migraine Hypertension Rheumatoid arthritis Chronic kidney disease, stage 3b Surgical History S/P AVR S/P CABG (coronary artery bypass graft) Family History Mother Hypertension Social History Alcohol intake: never Patient Tobacco Use Status: Never used Tobacco Physical Exam Vital Signs: Last Vital Signs BP 122/80 08/02/24 09:20 BMI result Body Mass Index 24.5 Const General: cooperative, healthy appearing, comfortable and in distress Nutritional Appearance: average body habitus Orientation/consciousness: patient oriented x3 Eyes Pupils: Equal, round and reactive pupils present Neuro General: patient oriented x3, gait normal, tone normal, moves all extremities and no focal motor deficits Cranial nerves: Yes CN's II-XII intact bilaterally, Yes Facial sensation intact/muscles of mastication intact, Yes Equal, round and reactive pupils present, Yes Bilaterally intact EOM present, Yes Nystagmus not present, Yes Normal facial strength present, Yes Midline tongue present, Yes Symmetric palate elevation present and Yes Ability to bilaterally elevate shoulders present Cognition (Neuro): normal cognition Gait exam (Neuro): Normal gait present Motor exam (neuro): 5/5 motor strength present throughout and Normal motor muscle tone present throughout Deep tendon reflexes (DTR's): Right triceps reflex intensity grade: 2+, Left triceps reflex intensity grade: 2+, Rt Biceps (C5, C6): 2+, Left biceps reflex intensity grade: 2+, Right brachioradialis reflex intensity grade: 2+, Left brachioradialis reflex intensity grade: 2+, Right patellar reflex intensity grade: 2+ and Left patellar reflex intensity grade: 2+ Coordination: [id number] test normal Assessment & Plan Assessment & Plan (1) Ocular migraine: Code(s): G43.109 - Migraine with aura, not intractable, without status migrainosus Category: Medical (2) Migraine headache with aura: Code(s): G43.109 - Migraine with aura, not intractable, without status migrainosus Category: Medical Qualifiers: Status migrainosus presence: without status migrainosus Intractability: not intractable Qualified Code(s): G43.109 - Migraine with aura, not intractable, without status migrainosus (3) Chronic daily headache: Code(s): R51.9 - Headache, unspecified Category: Medical Plan I will trial her on amitriptyline 10 mg qhs for prevention of migraines and aura - suggested to maintain a migraine dairy to assess response Ubrelvy 50 mg as needed for migraines 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 Avoid OTC medications like excedrin Medications: New amitriptyline 10 mg PO BEDTIME 30 tabs 6RF ubrogepant (Ubrelvy) 1 tab at onset , can be repeated in 2 hrs if needed , maximum 4 tabs a day orally PRN; TRIPTANS CONTRAINDICATED because of her cardiac disease 14 tabs 6RF migraine headache Coding Level of Care Code New Pt Level 4 (09547) Complex EM visit Add On G2211 Diagnoses Ocular migraine G43.109 Migraine with aura and without status migrainosus, not intractable G43.109 Status migrainosus presence: without status migrainosus Intractability: not intractable Chronic daily headache R51.9
== END 2024-08-02 09:52 | disposition home or self-care (01) ==
PROVIDERS: Referring Provider Internal Medicine Nephrology; Visit Provider Psychiatry & Neurology Neurology
DX: G43.109 Migraine with aura, not intractable, without status migrainosus (principal); R51.9 Headache, unspecified
CPT/HCPCS: 99204; G2211

== ENCOUNTER → 2024-08-02 09:15 | Outpatient (BNVA) | payer MEDICARE, SELFPAY | PROVIDERS: Referring Provider Internal Medicine Nephrology; Visit Provider Psychiatry & Neurology Neurology | DX: G43.109 Migraine with aura, not intractable, without status migrainosus (principal) | CPT/HCPCS: 99202 ==

== ENCOUNTER 2024-09-27 11:44 | Outpatient (AMB) | payer MEDICARE, SELFPAY ==
--- NOTE | 2024-09-27 11:46 | HO.NEPHOV ---
Vital Signs 09/27/24 11:51 Height 5 ft 2 in Weight 129 lb BMI 23.6 BP 96/60 Blood Pressure Location Lt brachial Position Sitting Intake Visit Reasons: 4 mon follow up/ LVM Parimutuel Cashier Required: No Accompanied by: Spouse Allergies oxaprozin Allergy (Verified 09/27/24 11:51) Unknown Penicillins Allergy (Verified 09/27/24 11:51) Unknown sumatriptan Allergy (Verified 09/27/24 11:51) Unknown tamoxifen Allergy (Verified 09/27/24 11:51) Unknown HPI Comments Details: Frida in follow-up of her chronic kidney disease. She has been having dizziness with orthostasis. She was seen in [place] ER. Her Amlodipine was reduced to 2.5 mg recently. She continues to be symptomatic and has a Holter to be put on . She is due to have a stress test. She has H/O right sternal clavicular joint septic arthritis & underwent sternal wound debridement, sternal wire removal, washout, wound VAC placement with Dr. Palafox . She was treated with a 6 weeks of ceftriaxone and 3 weeks of metronidazole. She denies any night sweats, fever, fatigue, nausea vomiting or diarrhea. She had fracture of femur which needed surgical correction. She feels tired. Her last serum creatinine was around 1.3 . She remains on Arava and is off prednsione. She is due to see Dr Castro for her anemia of chronic disease [facility], [facility] Medical History (Updated 09/27/24 @ 12:11 by Sreekanth Avalos MD) Chronic daily headache Migraine headache with aura Ocular migraine Hypertension Rheumatoid arthritis Chronic kidney disease, stage 3b Surgical History S/P AVR S/P CABG (coronary artery bypass graft) Family History Mother Hypertension Social History Alcohol intake: never Patient Tobacco Use Status: Never used Tobacco Review of Systems Const All systems reviewed & are unremarkable except as noted in HPI and below Physical Exam Const General: comfortable and no acute distress Orientation/consciousness: patient oriented x3 HEENT Head: Yes normocephalic Mouth: Normal oral and palatal mucosa present Eyes EOM: EOMs intact bilaterally Neck Neck: Yes supple Resp Auscultation: clear to auscultation bilaterally Cardio Jugular venous distension: no JVD Rate: regular rate GI Palpation (GI): Soft to palpation Auscultation: normal bowel sounds General: Yes no CVA tenderness Back/Spine/Pelvis Back: no CVA tenderness Skin General skin exam: no rashes or lesions noted Neuro General: patient oriented x3 and moves all extremities Extrem General: Yes no pedal edema Results Reviewed Nephrology Results: Hgb 8.1 g/dl (12.0-16.0) L 08/10/23 WBC 12.3 X10*3/uL (4.8-10.8) H 08/10/23 Plt Count 260 X10*3/uL (160-400) 08/10/23 Sodium 136 mmol/L (135-145) 08/10/23 Potassium 4.1 mmol/L (3.3-5.1) 08/10/23 Chloride 103 mmol/L (96-108) 08/10/23 Carbon Dioxide 27 mmol/L (22-29) 08/10/23 BUN 25 mg/dL (9-16) H 08/10/23 Creatinine 1.64 mg/dL (0.5-1.4) H 08/10/23 Calcium 8.6 mg/dL (8.4-10.2) 08/10/23 Assessment & Plan Assessment & Plan (1) Anemia of chronic disease: Code(s): D63.8 - Anemia in other chronic diseases classified elsewhere Category: Medical (2) Hypertension: Code(s): I10 - Essential (primary) hypertension Category: Medical Qualifiers: Hypertension type: primary hypertension Qualified Code(s): I10 - Essential (primary) hypertension (3) CKD stage 3a, GFR 45-59 ml/min: Code(s): N18.31 - Chronic kidney disease, stage 3a Category: Medical Plan Frida has a chronic kidney disease due to vascular disease. She has longstanding history of rheumatoid arthritis. She had ATN during her cardiac surgery and postoperatively. Her renal functions is close to baseline . She is back on leflunomide . She has mild proteinuria. Her blood pressure has been on lower side. I discontinued Amlodipine and reduced carvedilol to 12.5 mg bid. Her urine output is good. Her volume status is optimal. She does not take any nonsteroidal anti-inflammatory medications. I plan to do a Doppler of her renal arteries with time. All her and her 's questions were answered. Coding Level of Care Code Est Pt Level 4 (46041) Diagnoses Anemia of chronic disease D63.8 Primary hypertension I10 Hypertension type: primary hypertension CKD stage 3a, GFR 45-59 ml/min N18.31
[2024-09-27 11:51] VITALS: BP 96/60; BMI 23.6
== END 2024-09-27 12:16 | disposition home or self-care (01) ==
PROVIDERS: Visit Provider Internal Medicine Nephrology
DX: N18.31 Chronic kidney disease, stage 3a (principal); D63.8 Anemia in other chronic diseases classified elsewhere; I10 Essential (primary) hypertension
CPT/HCPCS: 99214

== ENCOUNTER → 2024-09-27 11:44 | Outpatient (BNVA) | payer MEDICARE, SELFPAY | PROVIDERS: Visit Provider Internal Medicine Nephrology | DX: I12.9 Hypertensive chronic kidney disease with stage 1 through stage 4 chronic kidney disease, or unspecified chronic kidney disease (principal); N18.32 Chronic kidney disease, stage 3b; D63.8 Anemia in other chronic diseases classified elsewhere | CPT/HCPCS: 99212 ==

== ENCOUNTER 2024-11-03 14:30 | Outpatient (AMB) | payer MEDICARE, SELFPAY ==
--- NOTE | 2024-11-03 14:32 | HO.NEPHOV_ITS ---
Vital Signs 11/03/24 14:43 Height 5 ft 2 in Weight 112 lb BMI 20.5 BP 130/78 Blood Pressure Location Lt brachial Position Sitting Intake Visit Reasons: Follow up 1mo/ Conf Licensed Practical Nurse Instructor Required: No Accompanied by: Spouse Allergies oxaprozin Allergy (Verified 11/03/24 14:40) Unknown Penicillins Allergy (Verified 11/03/24 14:40) Unknown sumatriptan Allergy (Verified 11/03/24 14:40) Unknown tamoxifen Allergy (Verified 11/03/24 14:40) Unknown HPI Comments Details: Frida in follow-up of her chronic kidney disease. She has been having abdominal pain ,intermittent nausea and weight loss with anemia. She is feeling quite weak and is on a wheel chair. She denies any night sweats, fever, fatigue, nausea vomiting or diarrhea. She feels tired. Her last serum creatinine was around 1.4 . She remains on Arava and is off prednsione. She is due to see Dr Castro for her anemia of chronic disease [facility] Medical History (Updated 09/27/24 @ 12:11 by Sreekanth Avalos MD) Chronic daily headache Migraine headache with aura Ocular migraine Hypertension Rheumatoid arthritis Chronic kidney disease, stage 3b Surgical History S/P AVR S/P CABG (coronary artery bypass graft) Family History Mother Hypertension Social History Alcohol intake: never Patient Tobacco Use Status: Never used Tobacco Review of Systems Const All systems reviewed & are unremarkable except as noted in HPI and below Physical Exam Const General: comfortable and no acute distress Orientation/consciousness: patient oriented x3 HEENT Head: Yes normocephalic Mouth: Normal oral and palatal mucosa present Eyes EOM: EOMs intact bilaterally Neck Neck: Yes supple Resp Auscultation: clear to auscultation bilaterally Cardio Jugular venous distension: no JVD Rate: regular rate GI Palpation (GI): Soft to palpation Auscultation: normal bowel sounds General: Yes no CVA tenderness Back/Spine/Pelvis Back: no CVA tenderness Skin General skin exam: no rashes or lesions noted Neuro General: patient oriented x3 and moves all extremities Extrem General: Yes no pedal edema Assessment & Plan Assessment & Plan (1) CKD stage 3a, GFR 45-59 ml/min: Code(s): N18.31 - Chronic kidney disease, stage 3a Category: Medical (2) Hypertension: Code(s): I10 - Essential (primary) hypertension Category: Medical Qualifiers: Hypertension type: primary hypertension Qualified Code(s): I10 - Essential (primary) hypertension Plan Frida has a chronic kidney disease due to vascular disease. She has longstanding history of rheumatoid arthritis. She had ATN during her cardiac surgery and postoperatively. Her renal functions is close to baseline . She is back on leflunomide . She has mild proteinuria. Her blood pressure has been stable. Her volume status is optimal. She does not take any nonsteroidal anti- inflammatory medications. She will benefit from CTA of the celiac axis to R/O ischemia. I plan to do a Doppler of her renal arteries with time. All her and her 's questions were answered. Coding Level of Care Code Est Pt Level 4 (54163) Diagnoses CKD stage 3a, GFR 45-59 ml/min N18.31 Primary hypertension I10 Hypertension type: primary hypertension
--- OUTSIDE RECORDS SUMMARY | 2024-11-03 14:37 | XMS_ITS | Clinical Summary ---
Author Organization [facility] Address [address] [facility] [id number] Phone Care Team Providers Care Geological Drafter Name Role Phone Hilary Vail NP Primary Care Provider [phone] Allergies Active Allergy Reactions Criticality Noted Date Comments Oxaprozin Other (see comments) 03/05/2021 Penicillins 03/05/2021 Sumatriptan Other (see comments) 03/05/2021 Tamoxifen Other (see comments) 03/05/2021 Medications Multiple Vitamin (MULTIVITAMIN ADULT PO) Take 1 capsule by mouth 1 (one) time each day Active aspirin (ST NESTOR) 81 MG EC tablet Take 1 tablet by mouth 1 (one) time each day Active FLUoxetine (PROzac) 20 MG capsule Take 1 capsule by mouth 1 (one) time each day Active rosuvastatin (CRESTOR) 20 MG tablet Take 1 tablet by mouth 1 (one) time each day Active predniSONE (DELTASONE) 5 MG tablet Take 3 tablets by mouth 1 (one) time each day 02/28/2021 Active amLODIPine (NORVASC) 5 MG tablet Take 5 mg by mouth 1 (one) time each day Active enalapril (VASOTEC) 20 MG tablet TAKE 1 TABLET BY MOUTH TWICE A DAY 180 tablet 3 07/14/2022 Active carvedilol (COREG) 25 MG tablet TAKE 1 TABLET BY MOUTH TWICE A DAY 180 tablet 3 12/24/2022 Active omeprazole (PriLOSEC) [address] capsule Take 40 mg by mouth in the morning and 40 mg in the evening. Do not crush or chew.. Active Active Problems Problem Noted Date Diagnosed Date Coronary arteriosclerosis 06/08/20232022 History of malignant neoplasm of breast 06/08/20 23 06/08/2023 Local infection of wound 06/08/2023 023 Osteopenia 06/08/2023 06/08/2023 Vertigo 06/08/2023 06/08/2023 Fracture of femur 02/11/2023 06/08/2023 At increased risk of disease 01/28/2023 At increased risk of disease 01/28/2023 Patient encounter status 12/01/2022 Anemia 11/29/2021 Chronic kidney disease 11/29/2021 Stage 3a chronic kidney disease 03/05/2021 Hypertensive renal disease 03/05/2021 Hypertension 03/05/2021 Resolved Problems Problem Noted Date Diagnosed Date Resolved Date Glucose level outside reference range 11/29/2021 11/29/2021 Anxiety 11/29/2021 11/29/2021 Aortic valve regurgitation 11/29/2021 0 11/29/2021 Atherosclerosis of aorta 11/29/202107/2022 Benign teratoma of ovary 11/29/202107/2022 Cellulitis 11/29/2021 11/29/2021 Cough 11/29/2021 11/29/2021 Depressive disorder 11/29/2021 11/30/19 22 Diplopia 11/29/2021 11/29/2021 Generalized aches and pains 11/29/2021 11/29/2021 Hiatal hernia 11/29/2021 11/29/2021 Hyperlipidemia 11/29/2021 11/29/2021 Insomnia 11/29/2021 11/29/2021 Intolerant of cold 11/29/2021 Microscopic colitis 11/29/2021 11/30/19 22 Migraine 11/29/2021 11/29/2021 Non-healing surgical wound 11/29/2021 0 11/29/2021 Obesity 11/29/2021 11/29/2021 Rheumatoid arthritis 11/29/2021 022 Right carotid artery stenosis 11/29/2021 11/29/2021 Systolic murmur 11/29/2021 11/29/2021 Transient cerebral ischemia 11/29/2021 11/29/2021 Weight loss 11/29/2021 11/29/2021 Thrombosis 11/29/2021 11/29/2021 Immunizations Name Administration Dates Next Due Influenza, Quadrivalent, Preservative Free 05/30 Influenza, Unspecified 05/30/2020,06/28/2019,06/2018 Pfizer SARS-COV-2 05/12/2021,01/23/2021,01/03/20 21 Pneumococcal Polysaccharide 10/16/2019 Family History Medical History Relation Comments Hypertension Mother Relation Status Comments Father Mother Social History Tobacco Use Types Packs/Day Years Used Date Smoking Tobacco: Never Smokeless Tobacco: Never Tobacco Cessation:Counseling Given: Not Answered Alcohol Use Standard Drinks/Week Comments No 0 (1 standard drink = 0.6 oz pur e alcohol) Comments Unknown Sex and Gender Information Value Date Recorded Sex Assigned at Not on file Legal Sex Female 4:51 PM EST Gender Identity Not on file Sexual Orientation Not on file Last Filed Vital Signs Vital Sign Reading Time Taken Comments Blood Pressure 110/70 06/08/2023 1:24 PM EDT Pulse 64 06/05/2022 2:47 PM EDT Temperature - - Respiratory Rate - - Oxygen Saturation 95% 06/05/2022 2:47 PM EDT Inhaled Oxygen Concentration - - Weight 73.8 kg (162 lb 9.6 oz) 06/08/2023 1:24 P M EDT Height 160 cm (5' 3 ) 04/03/2020 12:00 PM EDT Body Mass Index 28.8 04/03/2020 12:00 PM EDT Plan of Treatment Health Maintenance Due Date Last Done Comments Breast Cancer Screening 1955 Colorectal Cancer Screening: Annual FOBT 2005 Colorectal Cancer Screening: Colonoscopy 2005 Colorectal Cancer Screening: Sigmoidoscopy 2005 Pneumococcal Vaccine: 65+ Years (2 of 2 - PCV) 10/16/2020 10/16/2019 Influenza Vaccine (#1) 2024 0, 05/30/2020, 06/28/2019, Additional history exists Hepatitis B Vaccine Aged Out No longe r eligible based on patient's age to complete this topic Insurance COUNTS INCLUDE 234 BEDS AT [facility] Care Teams Geological Drafter Relationship Specialty Start Date End Date Hilary Vail NP [address] [place] [id number] PCP - General Nurse Practitioner 08/20/21
--- OUTSIDE RECORDS SUMMARY | 2024-11-03 14:38 | XMS_ITS | Clinical Summary ---
Author Organization [facility] Address [address] [place] [address] Care Team Providers Care Sergeant Of Corrections Name Role Phone Hilary Vail NP Primary Care Provider [phone] Allergies Active Allergy Reactions Criticality Noted Date Comments Oxaprozin Hives 01/23/2023 Sumatriptan Hives 01/23/2023 Penicillins Hives 01/23/2023 Tamoxifen Hives 01/23/2023 Medications Medication Sig Dispensed Refills Start Date End Date Status rosuvastatin (CRESTOR) tablet 20 mg Take 1 tablet (20 mg total) by mouth daily. 0 Active carvedilol (COREG) 25 MG tablet Take by mouth 2 (two) times a day with meals. 0 Active enalapril (VASOTEC) 20 MG tablet Take 1 tablet (20 mg total) by mouth 2 (two) times a day. 0 Active FLUoxetine (PROzac) 20 MG capsule Take 1 capsule (20 mg total) by mouth daily. 0 Active amLODIPine (NORVASC) tablet 5 mg Take 1 tablet (5 mg total) by mouth daily. 0 Active predniSONE (DELTASONE) tablet 20 mg Take 2 tablets (40 mg total) by mouth daily. 0 Active methocarbamol (ROBAXIN) 750 MG tablet Take 1 tablet (750 mg total) by mouth 4 (four) times a day as needed. 90 tablet 0 01/29/2023 Active Active Problems Problem Noted Date Diagnosed Date Pain 01/28/2023 Impending pathologic fracture 01/28/2023 Social History Tobacco Use Types Packs/Day Years Used Date Smoking Tobacco: Never Smokeless Tobacco: Never Alcohol Use Standard Drinks/Week Comments Not Currently 0 (1 standard drink = 0.6 oz pur e alcohol) Sex and Gender Information Value Date Recorded Sex Assigned at Female 01/27/2023 12:30 PM EDT Gender Identity Not on file Sexual Orientation Not on file Job Start Date Occupation Industry Not on file Not on file Not on file Last Filed Vital Signs Vital Sign Reading Time Taken Comments Blood Pressure 173/83 01/29/2023 8:02 AM EDT Pulse 57 01/29/2023 8:02 AM EDT Temperature 36.7 ??C (98.1 ??F) 01/29/2023 8:02 AM ED T Respiratory Rate 17 01/29/2023 8:02 AM EDT Oxygen Saturation 95% 01/29/2023 8:02 AM EDT Inhaled Oxygen Concentration - - Weight 72.6 kg (160 lb) 01/23/2023 8:32 AM EDT Height 154.9 cm (5' 1 ) 01/23/2023 8:32 AM EDT Body Mass Index 30.23 01/23/2023 8:32 AM EDT Plan of Treatment Health Maintenance Due Date Last Done Comments Hepatitis C Screening 1955 Depression Screening 1968 BMI Counseling 1974 Preventative Health Evaluation 1974 DTap / Tdap / Td (1 - Tdap) 1975 Colon Cancer Screening (Colonoscopy) 2001 Breast Cancer Screening (Mammogram) 2006 Shingrix-Zoster Vaccine (1 of 2) 2006 Fall Risk Assessment 2021 Osteoporosis Screening (DEXA Scan) 2021 Pneumococcal Vaccine (2 of 2 - PCV) 2021 10/16/2019 COVID-19 Vaccine ( season) 2024 01/08/2022, 05/12/2021, 01/23/2021, Additional history exists Influenza Vaccine (#1) 2024 2, 06/26/2021, 05/30/2020, Additional history exists RSV Adult > 60+ Yrs or (1 - 1-dose 75+ series) 2031 Hepatitis B Vaccines Aged Out No long er eligible based on patient's age to complete this topic RSV Ped < 20 months Aged Out No longe r eligible based on patient's age to complete this topic Medical Devices Implanted Type Area Senior Sourcing Manager Device Identifier Shelf Expiration Date Model / Serial / Lot Femoral Nail Retrograde [id number] Stry-Howm [id number] - [id number] Implanted:Qty: 1 on 01/28/2023 by Francia Hilario MD at [facility] and [facility] Left: Femur [employer] 08/20/2032 [id number] / / [id number] Screw Locking 70x5mm T2 Alpha Stry-Tram [id number] - [id number] Implanted:Qty: 1 on 01/28/2023 by Francia Hilario MD at [facility] and [facility] Left: Femur K[employer] 10/21/2032 [id number] / / [id number] Screw Locking 5x50mm Stry-Tram [id number] - [id number] Implanted:Qty: 1 on 01/28/2023 by Francia Hilario MD at [facility] and [facility] Left: Femur KAILASH [employer]UMA 07/21/2032 [id number] / / [id number] Screw Locking 5x37.5mm Stry-Tram [id number] - [id number] Implanted:Qty: 1 on 01/28/2023 by Francia Hilario MD at [facility] and [facility] Left: Femur K[employer]ASH [employer]UMA 11/18/2032 [id number] / / [id number] Screw Locking 5x37.5mm Stry-Tram [id number] - [id number] Implanted:Qty: 1 on 01/28/2023 by Francia Hilario MD at [facility] and [facility] Left: Femur KAILASH [employer]UMA 03/20/2032 [id number] / / [id number] Advance Directives For more information, please contact: [phone] Latest Code Status on File Code Status Date Activated Date Inactivated Comments Full Code 01/28/2023 10:09 AM 01/29/2023 7:12 PM This code status was ascertained in the following way: discussion with patient . Care Teams Sergeant Of Corrections Relationship Specialty Start Date End Date Hilary Vail NP [address] [place] [address] PCP - General Nurse Practitioner 01/28/23
--- OUTSIDE RECORDS SUMMARY | 2024-11-03 14:38 | XMS_ITS ---
Author Name [facility] Organization Unknown History of Medication Use Medication Directions Dispensed Refills Start Date End Date Stat us doxycycline hyclate 100 mg capsule TAKE 1 CAPSULE BY MOUTH TWICE A DAY FOR 10 DAYS 07/23/2023 active fluoxetine 20 mg capsule 20 mg by oral route. active clindamycin HCl 300 mg capsule TAKE 1 CAPSULE BY MOUTH EVERY 8 HOURS active rosuvastatin 20 mg tablet 20 mg by oral route. active enalapril maleate 20 mg tablet 20 mg by oral route. active tramadol 50 mg tablet TAKE 2 TABLETS BY MOUTH 3 TIMES A DAY NEEDED FOR PAIN active furosemide 20 mg tablet TAKE 1 TABLET BY MOUTH EVERY DAY 01/22/2023 completed leflunomide 20 mg tablet TAKE 1 TABLET BY MOUTH EVERY DAY 07/23/2023 active Allergies Allergen Reaction Severity Comment Documented Date Source Statu s IMITREX ENS_AONECT TAMOXIFEN hives ENS_AONECT DAYPRO ENS_AONECT OXAPROZIN hives ENS_AONECT SUMATRIPTAN hives ENS_AONECT PENICILLINS ENS_AONECT Problems Problem Status Onset Date Problem Type Date of Resoluti on Source Fracture of femur active 2023-02-11 ProblemAct ENS_[facility]ON[facility] At risk of disease active 2023-01-28 ProblemAct E[facility]ON[facility] Pain active 2023-01-28 ProblemAct ENS_AONE CT
--- OUTSIDE RECORDS SUMMARY | 2024-11-03 14:38 | XMS_ITS | Encounter Summary ---
Author Organization [facility] Address [address] [place] [address] Care Team Providers Care Adult Manager Name Role Phone Hilary Vail NP Primary Care Provider [phone] Encounter Details Date Type Department Care Team ([facility] st Contact Info) Description 11/02/2024 3:25 PM EST Lab Draw Station - [address] [address] Anemia, unspecified type (Primary Dx); Coronary artery disease involving [place] coronary artery of [place] heart without angina pectoris; Hyperlipidemia, unspecified hyperlipidemia type; Nausea and vomiting, unspecified vomiting type; Generalized abdominal pain Social History Tobacco Use Types Packs/Day Years Used Date Smoking Tobacco: Former Smokeless Tobacco: Never Alcohol Use Standard Drinks/Week Comments No 0 (1 standard drink = 0.6 oz pur e alcohol) Interpersonal Safety Answer Date Record ed Physical Abuse 09/22/2024 Verbal Abuse 09/22/2024 Comments No Sex and Gender Information Value Date Recorded Sex Assigned at Not on file Legal Sex Female 5:17 PM EST Gender Identity Not on file Sexual Orientation Not on file documented as of this encounter Progress Notes * SUSANNA Manzanares - 11/02/2024 3:25 PM EST Can I add-on a CBC and iron studies for this patient's bloodwork? I was going to add after our visit (because the patient said she wasn't going to go for bloodwork until tomorrow ugh!) * SUSANNA Manzanares - 11/02/2024 3:25 PM EST Appreciate that, thank you. I may have her come back in . . . documented in this encounter Plan of Treatment Upcoming Encounters Date Type Department Care Team (Late st Contact Info) Description 11/23/2024 1:15 PM EST Office Visit [facility] Hematology Oncology [address] [place] [phone] Carolann Castro MD [address] [place] [address] 11/25/2024 10:40 AM EST Office Visit Gastroenterology - [address] [address] Chintan Kilgore PA [address] [address] 12/06/2024 7:30 AM EDT Clinical Support Gastroenterology - [address] [phone] 12/21/2024 2:10 PM EDT Office Visit Gastroenterology - [address] [phone] Chintan Kilgore PA [address] [address] Scheduled Orders Name Type Priority Associated Diagnoses Orde r Schedule CBC and differential Lab Routine Anemia, unspecified type 1 Occurrences starting 11/02/2024 until 11/02/2025 documented as of this encounter Procedures Procedure Name Priority Date/Time Associated Diagnosis Comments LIPID PANEL WITH REFLEX TO DIRECT LDL Routine 11/02/2024 3:36 PM EST Coronary artery disease involving [place] coronary artery of [place] heart without angina pectoris Hyperlipidemia, unspecified hyperlipidemia type IRON AND TIBC Routine 11/02/2024 3:36 PM EST Anemia, unspecified type LIPASE Routine 11/02/2024 3:36 PM EST Nausea and vomiting, unspecified vomiting type Generalized abdominal pain FERRITIN Routine 11/02/2024 3:36 PM EST Anemia, unspecified type AMYLASE Routine 11/02/2024 3:36 PM EST Nausea and vomiting, unspecified vomiting type Generalized abdominal pain COMPREHENSIVE METABOLIC PANEL Routine 11/02/2024 3:36 PM EST Nausea and vomiting, unspecified vomiting type Generalized abdominal pain documented in this encounter Results * (ABNORMAL) Ferritin (11/02/2024 3:36 PM EST) Ferritin 759(H) 8 - 252 ng/mL LAB CHEMISTRY METHOD 11/03/2024 8:36 AM EST [facility] Blood Venous blood specimen / Unknown Venipuncture / Unknown 11/02/2024 3:36 PM EST 11/02/2024 4:07 PM EST us Heather MULLINS LAB BLOOD ORDERABLES Final Resu lt [facility] [address] [place] [address], * (ABNORMAL) Iron and TIBC (11/02/2024 3:36 PM EST) Iron 75 40 - 150 mcg/dL LAB CHEMISTRY METHOD 11/03/2024 8:36 AM EST [facility] TIBC 131(L) 250 - 450 mcg/dL LAB CHEMISTRY METHOD 11/03/2024 8:[address] [facility] Iron Saturation 57(H) 15 - 50 % LAB CHEMISTRY METHOD 11/03/2024 8:[address] [facility] Blood Venous blood specimen / Unknown Venipuncture / Unknown 11/02/2024 3:36 PM EST 11/02/2024 4:07 PM EST us Heather MULLINS LAB BLOOD ORDERABLES Final Resu lt [facility] [address] [place] [address], [place] [phone] * (ABNORMAL) Comprehensive metabolic panel (11/02/2024 3:36 PM EST) Sodium 135 133 - 145 mmol/L LAB CHEMISTRY METHOD 11/02/2024 5:[address] [facility] Potassium 3.6 3.5 - 5.5 mmol/L LAB CHEMISTRY METHOD 11/02/2024 5:[address] [facility] Chloride 104 96 - 110 mmol/L LAB CHEMISTRY METHOD 11/02/2024 5:[address] [facility] CO2 25 21 - 32 mmol/L LAB CHEMISTRY METHOD 11/02/2024 5:[address] [facility] Anion Gap 6 3 - 11 LAB CHEMISTRY METHOD 11/02/2024 5:[address] [facility] Glucose 83 70 - 100 mg/dL LAB CHEMISTRY METHOD 11/02/2024 5:[address] [facility] BUN 27(H) 5 - 25 mg/dL LAB CHEMISTRY METHOD 11/02/2024 5:[address] [facility] Creatinine 1.41(H) 0.50 - 1.10 mg/dL LAB CHEMISTRY METHOD 11/02/2024 5:[address] [facility] eGFR 41(L) >=60 mL/min/1. 73m2 LAB CHEMISTRY METHOD 11/02/2024 5:[address] [facility] Comment:Calculation based on the??Chronic Kidney Disease Epidemiology Collaboration (CKD-EPI) equation refit??without adjustment for race. BUN/Creatinine Ratio 19.1 LAB CHEMISTRY METHOD 11/02/2024 5:[address] [facility] Calcium 9.1 8.5 - 10.5 mg/dL LAB CHEMISTRY METHOD 11/02/2024 5:[address] [facility] AST (SGOT) 17 10 - 42 unit/L LAB CHEMISTRY METHOD 11/02/2024 5:[address] [facility] ALT (SGPT) 12 10 - 60 unit/L LAB CHEMISTRY METHOD 11/02/2024 5:[address] [facility] Alkaline Phosphatase 173(H) 42 - 121 unit/L LAB CHEMISTRY METHOD 11/02/2024 5:[address] [facility] Total Protein 6.2 6.0 - 8.0 g/dL LAB CHEMISTRY METHOD 11/02/2024 5:[address] [facility] Albumin 2.7(L) 3.2 - 5.0 g/dL LAB CHEMISTRY METHOD 11/02/2024 5:[address] [facility] Total Bilirubin 0.4 0.0 - 1.4 mg/dL LAB CHEMISTRY METHOD 11/02/2024 5:[address] [facility] Blood Venous blood specimen / Unknown Venipuncture / Unknown 11/02/2024 3:36 PM EST 11/02/2024 4:07 PM EST us Heather MULLINS LAB BLOOD ORDERABLES Final Resu lt [facility] [address] [place] [address], * Amylase (11/02/2024 3:36 PM EST) Amylase 62 25 - 115 unit/L LAB CHEMISTRY METHOD 11/02/2024 5:[address] [facility] Blood Venous blood specimen / Unknown Venipuncture / Unknown 11/02/2024 3:36 PM EST 11/02/2024 4:07 PM EST Heather MULLINS LAB BLOOD ORDERABLES Final Resu lt Performing Organization Address City/[facility]/ZIP Co de Phone Number [facility] [address] [place] [address], [place] [phone] * Lipase (11/02/2024 3:36 PM EST) Lipase 56 13 - 75 unit/L LAB CHEMISTRY METHOD 11/02/2024 5:[address] [facility] Blood Venous blood specimen / Unknown Venipuncture / Unknown 11/02/2024 3:36 PM EST 11/02/2024 4:07 PM EST Heather Blair [place] LAB BLOOD ORDERABLES Final Resu lt Performing Organization Address [facility]/ZIP Co de Phone Number [facility] [address] [place] [address], [place] [phone] * (ABNORMAL) Lipid panel with reflex to direct LDL (11/02/2024 3:36 PM EST) Pathologist [facility] Cholesterol 145 0 - 200 mg/dL LAB CHEMISTRY METHOD 11/02/2024 5:[address] [facility] Triglycerides 249(H) 0 - 150 mg/dL LAB CHEMISTRY METHOD 11/02/2024 5:[address] [facility] HDL 38(L) >=40 mg/dL LAB CHEMISTRY METHOD 11/02/2024 5:[address] [facility] LDL Calculated 57 0 - 100 mg/dL LAB CHEMISTRY METHOD 11/02/2024 5:[address] [facility] VLDL Cholesterol Cecilio 49.8 mg/dL LAB CHEMISTRY METHOD 11/02/2024 5:[address] [facility] Non HDL Chol. (LDL+VLDL) 107 <145 mg/dL LAB CHEMISTRY METHOD 11/02/2024 5:[address] [facility] Chol/HDL Ratio 3.8 0.0 - 4.4 LAB CHEMISTRY METHOD 11/02/2024 5:01 PM EST [facility] Blood Venous blood specimen / Unknown Venipuncture / Unknown 11/02/2024 3:36 PM EST 11/02/2024 4:07 PM EST Dania Hamm NP LAB BLOOD ORDERABLES Final Result [facility] [address] [place] [address], documented in this encounter Visit Diagnoses Diagnosis Anemia, unspecified type- Primary Coronary artery disease involving [place] coronary artery of [place] heart without angina pectoris Hyperlipidemia, unspecified hyperlipidemia type Nausea and vomiting, unspecified vomiting type Generalized abdominal pain Abdominal pain, generalized documented in this encounter Additional Health Concerns Infection Onset Date Last Indicated Resolved Time Gastrointestinal Rule-Out 11/02/2024 11/02/2024 documented as of this encounter Care Teams Adult Manager Relationship Specialty Start Date End Date Hilary Vail NP [address] [facility] [place] [address] PCP - General Internal Medicine 04/29/16 documented as of this encounter
--- OUTSIDE RECORDS SUMMARY | 2024-11-03 14:38 | XMS_ITS | Encounter Summary ---
Author Organization [facility] Address [address] [place] [address] Care Team Providers Care High School Tutor Name Role Phone Hilary Vail NP Primary Care Provider [phone] Reason for Visit * Imaging (Emergency) - Closed Specialty Diagnoses / Procedures Referred By Contac t Referred To Contact Cardiology Diagnoses Pre-syncope H/O aortic valve replacement Procedures Transthoracic echocardiogram (TTE) complete with PRN contrast, bubble, strain, and 3D order panel AZ TTE W 2D IMAGE COMPLETE W DOPPLER ECHO & COLOR FLOW DOPPLER ECHO AZ NATHAN 2D COMPLETE W/CONTRAST OR W & WO CONTRAST WITH DOPPLER Dania Hamm NP [address] [place] [address] Phone: tel: fax: [facility] Referral ID Status Reason Start Date Expiration Date Visits Re quested Visits Authorized [id number] Closed 09/20/2024 09/20/2025 1 1 Encounter Details Date Type Department Care Team (Latest Contact Info) Description 10/17/2024 12:30 PM EST Ancillary Procedure [facility] [address] [place] [phone] Pre-syncope; H/O aortic valve replacement Social History Tobacco Use Types Packs/Day Years [...] on file documented as of this encounter Last Filed Vital Signs Vital Sign Reading Time Taken Comments Blood Pressure - - Pulse - - Temperature - - Respiratory Rate - - Oxygen Saturation - - Inhaled Oxygen Concentration - - Weight 54.4 kg (120 lb) 10/17/2024 11:59 AM EST Height 160 cm (5' 2.99 ) 10/17/2024 11:59 AM EST Body Mass Index 21.26 10/17/2024 11:59 AM EST documented in this encounter Plan of Treatment Upcoming Encounters Date Type Department Care Team (Late st Contact Info) Description 11/23/2024 1:15 PM EST Office Visit [facility] Hematology Oncology [address] [place] [address] Carolann Castro MD [address] [place] [address] 11/25/2024 10:40 AM EST Office Visit Gastroenterology - [address] [address] Chintan Kilgore PA [address] [address] 12/06/2024 7:30 AM EDT Clinical Support Gastroenterology - [address] [address] 12/21/2024 2:10 PM EDT Office Visit Gastroenterology - [address] [address] Chintan Kilgore PA [address] [address] documented as of this encounter Procedures Procedure Name Priority Date/Time Associated Diagnosis Comments TRANSTHORACIC ECHOCARDIOGRAM (TTE) COMPLETE STAT 10/17/2024 12:32 PM EST Pre-syncope H/O aortic valve replacement documented in this encounter Results * (ABNORMAL) TRANSTHORACIC ECHOCARDIOGRAM (TTE) COMPLETE (10/17/2024 12:32 PM EST) Left Atrium Minor Norden 5.9 cm CV PACS Left Atrium Major Norden 5.5 cm CV PACS LA Area Sys (A2C) 24 cm2 CV PACS LA Area Sys (A4C) 21 cm2 CV PACS LA Volume (BP) 72 mL CV PACS RA Area 15.0 cm2 CV PACS RA 2D Volume 34 mL CV PACS AV Mean Gradient 8 mmHg CV PACS Ao VTI 45.6 cm CV PACS AV Peak Sarabjit 2.1 m/s CV PACS AV Peak Gradient 18 mmHg CV PACS AV Area Continuity Equation 1.3 cm2 CV PACS AV Area Peak Velocity 1.2 cm2 CV PACS Aortic Arch 2.4 cm CV PACS Ascending Aorta 3.7 cm CV PACS IVC Proximal 0.9 cm CV PACS IVSD 1.2(A) 0.6 - 0.9 cm CV PACS LVIDD 4.3 3.8 - 5.2 cm CV PACS LVIDS 3.1 2.2 - 3.5 cm CV PACS LVOT Diameter 2.0 cm CV PACS LVOT Mean Sarabjit 0.5 m/s CV PACS LVOT Mean Grad 1 mmHg CV PACS LVOT Peak VTI 19.5 cm CV PACS LVOT Peak Sarabjit 0.8 m/s CV PACS LVOT Peak Gradient 3 mmHg CV PACS LVPWD 1.3(A) 0.6 - 0.9 cm CV PACS MV E' Tissue Velocity Lateral 4 cm/s CV PACS MV E' Tissue Velocity Septal 3 cm/s CV PACS LVOT Area 3.1 cm2 CV PACS LVOT Stroke Volume 61 mL CV PACS MV Deceleration [place] 3.2 m/s2 CV PACS E Wave Deceleration Time 363(A) 119 - 242 ms CV PACS MV PHT 106 ms CV PACS MV Peak A Sarabjit 1.18 m/s CV PACS MV Peak E Sarabjit 1.16 m/s CV PACS MV Mean Gradient 4 mmHg CV PACS MV VTI 49.0 cm CV PACS Mitral Valve Max Velocity 1.5 m/s CV PACS MV Peak Gradient 9 mmHg CV PACS MV Area PHT 2.1 cm2 CV PACS MV Area Continuity Equation 1.2 cm2 CV PACS PV Acceleration Time 85 ms CV PACS PV Peak Velocity 0.9 m/s CV PACS PV Peak Gradient 3 mmHg CV PACS RV Diastolic Basal Dimension 3.5 2.5 - 4.1 cm CV PACS TAPSE 13 mm CV PACS TR Peak Velocity 2.21 m/s CV PACS TR Peak Gradient 20 mmHg CV PACS E/E' Ratio Septal 39 CV PACS E/E' Ratio Averaged 34 CV PACS LVOT Stroke Index 39 mL/m2 CV PACS Relative Wall Thickness ratio 0.60 CV PACS LVOT:AV VTI Index 0.43 CV PACS FS 28 % CV PACS LV Mass 2D 196 g CV PACS Ascending Aorta Index 2.37 cm/m2 CV PACS MV VTI:LVOT VTI ratio 2.5 CV PACS LVOT flow 157 mL/s CV PACS RA 2D Volume Index 22 mL/m2 CV PACS RUBY Index (VTI) 0.86 cm2/m2 CV PACS RUBY Index (Pk Sarabjit) 0.77 cm2/m2 CV PACS LVIDD Index 2.76 cm/m2 CV PACS LVIDS Index 1.99 cm/m2 CV PACS AV Velocity Ratio 0.38 CV PACS E/A Ratio 1.0 CV PACS E/E' Ratio Lateral 29 CV PACS LA Volume Index (BP) 46 mL/m2 CV PACS LV Mass Index 2D 126 g/m2 CV PACS BSA 1.56 m2 CV PACS Right Ventricular Peak Systolic Pressure 23 mmHg CV PACS Est. RA Pressure 3 mmHg CV PACS Anatomical Region Laterality Modality Ultrasound Narrative 10/18/2024 10:08 AM EST ?Left ventricle cavity size is normal. Left ventricular systolic function is in the normal range with an ejection fraction of 55-60%. ?Mild septal contraction abnormality consistent with the postoperative state. ?Mild concentric left ventricular hypertrophy. ?Right ventricle cavity is normal. Right ventricular systolic function is mildly reduced. ?A bioprosthetic aortic valve is present. Prosthetic valve appears to be functioning normally. ?Mitral valve demonstrates mild stenosis. ??And also thickening and mild restriction of the mitral leaflets and at least moderate mitral annular calcification. ?Trace TR with normal estimated PA pressures. ?No other significant abnormalities. ??No significant change from June 10, 2022. Left Ventricle Left ventricle cavity size is normal. There is mild hypertrophy. Systolic function is normal with an ejection fraction of 55-60%. Mild septal contraction abnormality likely due to the postoperative state. Right Ventricle Right ventricle cavity appears normal. Systolic function is mildly reduced. Left Atrium Left atrium cavity is moderately dilated. Right Atrium Right atrium cavity is normal. Mitral Valve The leaflets are moderately thickened. And the posterior leaflet appears mildly restricted. It also seems to be foreshortened. Anterior leaflet excursion is also slightly restricted. There is annular calcification. There is mild-moderate regurgitation. There is mild stenosis. Mean gradient of 4 mmHg. Pressure half- time of 106 ms. Tricuspid Valve Tricuspid valve structure is normal. There is trace regurgitation. There is no evidence of tricuspid valve stenosis. Estimated RV systolic pressure of 23 mmHg. Aortic Valve The valve has been surgically replaced. There is an Inspiris bioprosthetic valve. The prosthetic valve appears to be functioning normally. There is no regurgitation or stenosis. Pulmonic Valve The pulmonic valve was not well visualized. There is trace pulmonic valve regurgitation. There is no evidence of pulmonic valve stenosis. Ascending Aorta The aortic root diameter is normal. The ascending aorta is at the upper limits of normal at 3.7 cm. Pericardium Pericardium appears normal. Study Details Overall the study quality was adequate. Dania Hamm NP CV ECHO PROCEDURES Fi nal Result documented in this encounter Visit Diagnoses Diagnosis Pre-syncope Syncope and collapse H/O aortic valve replacement documented in this encounter Care Teams [employer] T[employer] Relationship Specialty Start Date End Date Hilary Vail NP [address] [place] [address] PCP - General Internal Medicine 04/29/16 documented as of this encounter
--- OUTSIDE RECORDS SUMMARY | 2024-11-03 14:38 | XMS_ITS | Encounter Summary ---
Author Organization [facility] Address [address] [place] [address] Care Team Providers Care Plumbing Foreman Name Role Phone Hilary Vail NP Primary Care Provider [phone] Reason for Referral * Medications - Pending Review Specialty Diagnoses / Procedures Referred By Contac t Referred To Contact Diagnoses Generalized abdominal pain Heather Blair PA [address] [address] Phone: tel: fax: Referral ID Status Reason Start Date Expiration Date V isits Requested Visits Authorized [id number] Pending Review 1 1 Reason for Visit * Reason Comments Results Colonoscopy review Encounter Details Date Type Department Care Team (Late st Contact Info) Description 11/02/2024 2:20 PM EST Office Visit Gastroenterology - [address] [facility] [address] [place] [phone] Heather Blair PA 299 [facility] [address] [place] [phone] Nausea and vomiting, unspecified vomiting type (Primary Dx); Generalized abdominal pain; Diarrhea, unspecified type; Anemia, unspecified type Social History Tobacco Use Types Packs/Day Years [...] - Inhaled Oxygen Concentration - - Weight 50.8 kg (112 lb) 11/02/2024 2:14 PM EST Height 158.8 cm (5' 2.5 ) 11/02/2024 2:14 PM EST Body Mass Index 20.16 11/02/2024 2:14 PM EST documented in this encounter Ordered Prescriptions Prescription Sig Dispense Quantity Refills Last Filled Start Date End Date dicyclomine (BENTYL) 20 mg tabletIndications: Generalized abdominal pain Take 1 tablet (20 mg total) by mouth 4 (four) times a day if needed (abdominal pain). 120 each 11 11/02/2024 11/02/2025 ondansetron (ZOFRAN) 4 mg tabletIndications: Nausea and vomiting, unspecified vomiting type Take 1 tablet (4 mg total) by mouth every 8 (eight) hours if needed for nausea or vomiting. 30 tablet 2 11/02/2024 12/02/2024 documented in this encounter Progress Notes * SUSANNA Manzanares - 11/02/2024 2:20 PM ESTAssociated Problem(s): Anemia No past blood work to review. Patient states she has upcoming appointment with hematology tomorrow. Schedule for capsule endoscopy given ongoing issues and continued anemia, per patient. Orders: CBC; Future Iron and TIBC; Future Ferritin, Future * SUSANNA Manzanares - 11/02/2024 2:20 PM EST CHIEF COMPLAINT: Results (Colonoscopy review) HPI: Frida Garcia is a 69 y.o. old female who was originally referred to us by Hilary Vail NP now presents to the gastroenterology department today for a follow up of dark stools and diarrhea. Completed colonoscopy/EGD on 09/22/24. Per Dr. Mccormick, small bowel biopsies were normal. No evidence of celiac diease. The small colon polyp was precancerous - repeat colonoscopy in 7 years. No cause of anemia was noted. Follow up in office as scheduled to discuss whether small bowel capsule endos copy should be scheduled. Reports little to no change in symptoms since seeing Chintan in August. Symptoms include: postprandial diarrhea, nausea, and abdominal pain. Abdominal pain travels throughout the abdomen, improved with rest and heating pad. Mostly lower abdomen and LUQ. She reports avoiding foods due to fear of diarrhea. Diet mostly oatmeal, scrambled eggs, crackers, she is able to tolerate these foods without diarrhea occurring. She is also taking imodium as needed. BM twice weekly, watery/loose stools that are dark colored. She is down about 20lbs since her visit with Ye Andra. She reports she was recently in the hospital for a back injury for which she completed a CT scan and follow up MRI recently with [facility]. MRI lumbar w/o contrast on 10/27/24 does not comment on abdomen, CT scan abdomen/pelvis with and without IV contrast on 10/06/24 reveals GI impressions of the following: distal esophageal wall thickening, could be due to esophagitis or reflux disease. Liquid stool in colonic lumen, suggesting diarrheal illness. Otherwise no masses in abdomen suggestive of malignancy. For comprehensive report, see media tab for upload. Reports nausea with occasional vomiting. Vomit usually clear/white fluid. Worsening with time. Occurs intermittently, patient unable to give estimated frequency. Seeing Dr. Castro tomorrow for ongoing anemia. ROS: GENERAL: No malaise or fever HEENT: No changes in hearing or vision, nose bleeds or swallowing problems NECK: No lumps, goiter, pain or significant neck swelling RESPIRATORY: No cough, wheezing or shortness of breath CARDIOVASCULAR: No chest pain, leg swelling or palpitations GI: See above MUSCULOSKELETAL: No joint pain or swelling, back pain, or muscle pain. SKIN: No lesions, rash or itching The remainder of the review of systems is reviewed and negative. 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 Depression Primary hypertension Heart murmur, systolic Hyperlipidemia Insomnia Migraine Non-cardiac chest pain Nonrheumatic aortic (valve) stenosis Nonrheumatic aortic valve insufficiency Osteoarthritis Paroxysmal atrial fibrillation ([facility]/HCC) Rheumatoid arthritis ([facility]) Snoring SOB (shortness of breath) Stage 3a chronic kidney disease ([facility]/HCC) Subclavian artery stenosis ([facility]) TIA (transient ischemic attack) Pre-syncope Palpitations Status post coronary artery bypass graft Past Medical History: Diagnosis Date Abnormal glucose DX:Abnormal glucose Aching headache Acute kidney injury superimposed on chronic kidney disease ([facility]/HCC) DX:Acute kidney injury superimposed on chronic kidney disease ([facility]) Anemia 08/17/2019 DX:Anemia Anxiety 08/17/2019 DX:Anxiety Aortic atherosclerosis ([facility]) 08/17/2019 DX:Aortic atherosclerosis ([facility]) Aortic mural thrombus ([facility]) 08/17/2019 DX:Aortic mural thrombus ([facility]) Bilateral carotid artery stenosis 10/18/2018 DX:Bilateral carotid artery stenosis Body aches DX:Body aches Cellulitis DX:Cellulitis Chronic anemia DX:Chronic anemia CKD (chronic kidney disease) stage 3, GFR 30-59 ml/min ([facility]) 08/17/2019 DX:CKD (chronic kidney disease) stage 3, GFR 30-59 ml/min ([facility]) Class 1 obesity DX:Class 1 obesity Cold intolerance DX:Cold intolerance Cough DX:Cough Depression 08/17/2019 DX:Depression Dermoid cyst of ovary DX:Dermoid cyst of ovary Diplopia DX:Diplopia Elevated brain natriuretic peptide (BNP) level DX:Elevated brain natriuretic peptide (BNP) level GERD (gastroesophageal reflux disease) Hiatal hernia DX:Hiatal hernia History of breast cancer 04/21/2000 DX:History of breast cancer; COMMENT: 1998 HTN (hypertension) DX:HTN (hypertension) Hyperlipidemia 08/17/2019 DX:Hyperlipidemia Insomnia 08/17/2019 DX:Insomnia Microscopic colitis DX:Microscopic colitis Migraine 08/17/2019 DX:Migraine Migraine, unspecified, not intractable, without status migrainosus DX:Migraine, unspecified, not intractable, without status migrainosus Nonhealing surgical wound DX:Nonhealing surgical wound Osteoarthritis 08/17/2019 DX:Osteoarthritis; COMMENT: Thoracic, & Lumbar Spine Rheumatoid arthritis ([facility]/HCC) 08/17/2019 DX:Rheumatoid arthritis (HCC) SOB (shortness of breath) DX:SOB (shortness of breath) Subclavian artery stenosis (CMS/HCC) 08/17/2019 DX:Subclavian artery stenosis (HCC); COMMENT: Right TIA (transient ischemic attack) 08/17/2019 DX:TIA (transient ischemic attack) Weight loss DX:Weight loss PAST SURGICAL HISTORY: Past Surgical History: Procedure Laterality Date AORTIC VALVE REPLACEMENT PROCEDURE: HISTORICAL AORTIC VALVE REPL BREAST LUMPECTOMY Left 1981 PROCEDURE: HISTORICAL BREAST LUMPECTOMY COLONOSCOPY 09/22/2024 recall 7 years COLONOSCOPY 05/2020 for anemia/diarrhea - bx - collagenous colits, hemorrhoids COLONOSCOPY 07/2013 hemorrhoids COLONOSCOPY 01/2009 hemorrhiods - 5 yr fhx ESOPHAGOGASTRODUODENOSCOPY 05/2020 nl with nl bx of stomach and small bowel for anemia ESOPHAGOGASTRODUODENOSCOPY 07/2013 gastritis- reactive gastropathy suggestive of healing ulcer or erosion, nl esophageal bx for dysphagia ESOPHAGOGASTRODUODENOSCOPY 09/22/2024 MASTECTOMY Right 1999 PROCEDURE: HISTORICAL MASTECTOMY TONSILLECTOMY PROCEDURE: HISTORICAL TONSILLECTOMY SOCIAL HISTORY: Social History Tobacco Use Smoking status: Former Smokeless tobacco: Never Substance Use Topics Alcohol use: No FAMILY HISTORY: Family History Problem Relation Name Age of Onset Other (Other: car accident) Father Breast cancer Mother Uterine Cancer, CVA in her 60's Hypertension Mother Stroke Mother ACTIVE MEDICATIONS: Current Outpatient Medications Medication Sig Dispense Refill amitriptyline (ELAVIL) 10 mg tablet Take 1 tablet (10 mg total) by mouth. at bedtime. aspirin 81 mg chewable tablet Chew 1 tablet (81 mg total) 1 (one) time each day. carvediloL (COREG) 25 mg tablet Take 12.5 mg by mouth 2 (two) times a day with meals. ferrous sulfate 325 mg (65 mg elemental iron) tablet Take 1 tablet (325 mg total) by mouth 2 (two) times a day. FLUoxetine (PROzac) 20 mg capsule Take 1 capsule (20 mg total) by mouth 1 (one) time each day. leflunomide (ARAVA) 20 mg tablet Take 1 tablet (20 mg total) by mouth 1 (one) time each day. multivitamin with minerals tablet Take by mouth. omeprazole OTC (PriLOSEC OTC) 20 mg EC tablet Take 1 tablet (20 mg total) by mouth 2 (two) times a day. Do not crush, chew, or split. 180 tablet 3 rosuvastatin (CRESTOR) 20 mg tablet Take 1 tablet (20 mg total) by mouth 1 (one) time each day. amLODIPine (NORVASC) 2.5 mg tablet Take 1 tablet (2.5 mg total) by mouth 1 (one) time each day. (Patient not taking: Reported on 11/02/2024) 90 each 1 clindamycin (CLEOCIN) 300 mg capsule Take 2 capsules (600 mg total) by mouth See administration instructions. Take 2 caps 1hr before dental appts dicyclomine (BENTYL) 20 mg tablet Take 1 tablet (20 mg total) by mouth 4 (four) times a day if needed (abdominal pain). 120 each 11 ondansetron (ZOFRAN) 4 mg tablet Take 1 tablet (4 mg total) by mouth every 8 (eight) hours if needed for nausea or vomiting. 30 tablet 2 No current facility-administered medications for this visit. ALLERGIES: Allergies Allergen Reactions Bacitracin Itching Daypro [Oxaprozin] Hives and Rash Neomycin-Polymyxin B Gu Penicillins Hives, Itching and Rash Sumatriptan Hives and Rash Tamoxifen Flushing and Hives Presyncope, Abdominal pain PHYSICAL EXAM: Visit Vitals Ht 1.588 m (62.5 ) Wt 50.8 kg (112 lb) BMI 20.16 kg/m?? OB Status Postmenopausal Smoking Status Former BSA 1.5 m?? APPEARANCE: Alert and in no acute distress EYES: PERRLA, conjunctiva and sclera normal. MOUTH/THROAT: no erythema or exudates NECK: Neck supple, no adenopathy LYMPH NODES: grossly normal ABDOMEN: soft sensitive throughout abdomen, no ascites, guarding, or rebound, no organomegaly. EXTREMITIES: Extremities warm and well perfused SKIN: Skin color, texture, turgor normal. NEURO: Awake, alert and oriented, normal ROM LABS: See MEDIA for recent CT SCAN and MRI from [facility] ED in 09/2024 and 10/2024 Assessment/Plan Assessment & Plan Nausea and vomiting, unspecified vomiting type Patient request refill of Zofran. Received warning that patient has congenital QT prolongation whenrefilling, most recent EKG shows interval at 438ms and she has clearly tolerated this medication inthe past as she presents with the empty bottle. Will refill at this time, we did discuss QT prolongation. I advised her to use as needed only. Patient concerned for pancreatitis, did not have CT scan during visit so offered lipase/amylase testing for reassurance, no abnormalities on pancreas on CT scan either. Will order CMP to check electrolyte levels, kidney and liver function. Orders: ondansetron (ZOFRAN) 4 mg tablet; Take 1 tablet (4 mg total) by mouth every 8 (eight) hours if needed for nausea or vomiting. Lipase; Future Amylase; Future Comprehensive metabolic panel; Future Generalized abdominal pain Continue dicyclomine, will increase to 20mg QID PRN for increased efficacy. Orders: dicyclomine (BENTYL) 20 mg tablet; Take 1 tablet (20 mg total) by mouth 4 (four) times a day if needed (abdominal pain). Lipase; Future Amylase; Future Comprehensive metabolic panel; Future Diarrhea, unspecified type IBS vs microscopic colitis Will order stool samples to rule out infectious etiology along with inflammatory marker and heme occult. Consider restarting budesonide if no improvement in symptoms and negative testing. Orders: Clostridium difficile toxin; Future Calprotectin, stool; Future Occult blood stool, immunoassay; Future Culture stool; Future Anemia, unspecified type No past blood work to review. Patient states she has upcoming appointment with hematology tomorrow. Schedule for capsule endoscopy given ongoing issues and continued anemia, per patient. Orders: CBC; Future Iron and TIBC; Future Ferritin, Future Follow up after capsule endoscopy for recheck. Gastroenterology and Hepatology Practice [facility] [email or web address] [phone] [place] [phone] SUSANNA Manzanares documented in this encounter Plan of Treatment Upcoming Encounters Date Type Department Care Team (Late st Contact Info) Description 11/23/2024 1:15 PM EST Office Visit [facility] Hematology Oncology [address] [place] [phone] Carolann Castro MD [address] [place] [address] 11/25/2024 10:40 AM EST Office Visit Gastroenterology - [address] [place] [phone] Chintan Kilgore PA [address] [place] [phone] 12/06/2024 7:30 AM EDT Clinical Support Gastroenterology - [address] [place] [phone] 12/21/2024 2:10 PM EDT Office Visit Gastroenterology - [address] [place] [phone] Chintan Kilgore PA [address] [place] [phone] Scheduled Orders Name Type Priority Associated Diagnoses Orde r Schedule Clostridium difficile toxin Microbiology Routine Diarrhea, unspecified type 1 Occurrences starting 11/02/2024 until 11/02/2025 Calprotectin, stool Lab Routine Diarrhea, unspecified type 1 Occurrences starting 11/02/2024 until 11/02/2025 Occult blood stool, immunoassay Lab Routine Diarrhea, unspecified type 1 Occurrences starting 11/02/2024 until 11/02/2025 Culture stool Microbiology Routine Diarrhea, unspecified type 1 Occurrences starting 11/02/2024 until 11/02/2025 documented as of this encounter Results * (ABNORMAL) Comprehensive metabolic panel (11/02/2024 3:36 PM EST) Sodium 135 133 - 145 mmol/L LAB CHEMISTRY METHOD 11/02/2024 5:01 PM [facility] Potassium 3.6 3.5 - 5.5 mmol/L LAB CHEMISTRY METHOD 11/02/2024 5:01 PM [facility] Chloride 104 96 - 110 mmol/L LAB CHEMISTRY METHOD 11/02/2024 5:01 PM [facility] CO2 25 21 - 32 mmol/L LAB CHEMISTRY METHOD 11/02/2024 5:01 PM [facility] Anion Gap 6 3 - 11 LAB CHEMISTRY METHOD 11/02/2024 5:01 PM [facility] Glucose 83 70 - 100 mg/dL LAB CHEMISTRY METHOD 11/02/2024 5:01 PM [facility] BUN 27(H) 5 - 25 mg/dL LAB CHEMISTRY METHOD 11/02/2024 5:01 PM [facility] Creatinine 1.41(H) 0.50 - 1.10 mg/dL LAB CHEMISTRY METHOD 11/02/2024 5:01 PM [facility] eGFR 41(L) >=60 mL/min/1. 73m2 LAB CHEMISTRY METHOD 11/02/2024 5:01 PM [facility] Comment:Calculation based on the??Chronic Kidney Disease Epidemiology Collaboration (CKD-EPI) equation refit??without adjustment for race. BUN/Creatinine Ratio 19.1 LAB CHEMISTRY METHOD 11/02/2024 5:01 PM [facility] Calcium 9.1 8.5 - 10.5 mg/dL LAB CHEMISTRY METHOD 11/02/2024 5:01 PM [facility] AST (SGOT) 17 10 - 42 unit/L LAB CHEMISTRY METHOD 11/02/2024 5:01 PM [facility] ALT (SGPT) 12 10 - 60 unit/L LAB CHEMISTRY METHOD 11/02/2024 5:01 PM [facility] Alkaline Phosphatase 173(H) 42 - 121 unit/L LAB CHEMISTRY METHOD 11/02/2024 5:01 PM [facility] Total Protein 6.2 6.0 - 8.0 g/dL LAB CHEMISTRY METHOD 11/02/2024 5:01 PM [facility] Albumin 2.7(L) 3.2 - 5.0 g/dL LAB CHEMISTRY METHOD 11/02/2024 5:01 PM [facility] Total Bilirubin 0.4 0.0 - 1.4 mg/dL LAB CHEMISTRY METHOD 11/02/2024 5:01 PM [facility] Blood Venous blood specimen / Unknown Venipuncture / Unknown 11/02/2024 3:36 PM EST 11/02/2024 4:07 PM EST Heather Blair PA LAB BLOOD ORDERABLES Final Resu lt Performing Organization Address City/[facility]/ZIP Co de Phone Number [facility] [address] [place] [address], [place] [phone] * Amylase (11/02/2024 3:36 PM EST) Amylase 62 25 - 115 unit/L LAB CHEMISTRY METHOD 11/02/2024 5:00 PM EST [facility] Blood Venous blood specimen / Unknown Venipuncture / Unknown 11/02/2024 3:36 PM EST 11/02/2024 4:07 PM EST Heather Blair PA LAB BLOOD ORDERABLES Final Resu lt Performing Organization Address [facility]/ZIP Co de Phone Number [facility] [address] [place] [address], [place] [phone] * Lipase (11/02/2024 3:36 PM EST) Lipase 56 13 - 75 unit/L LAB CHEMISTRY METHOD 11/02/2024 5:00 PM EST [facility] Blood Venous blood specimen / Unknown Venipuncture / Unknown 11/02/2024 3:36 PM EST 11/02/2024 4:07 PM EST Heather Blair PA LAB BLOOD ORDERABLES Final Resu lt Performing Organization Address City/[facility]/ZIP Co de Phone Number [facility] [address] [place] [address], [place] [phone] documented in this encounter Visit Diagnoses Diagnosis Nausea and vomiting, unspecified vomiting type- Primary Generalized abdominal pain Abdominal pain, generalized Diarrhea, unspecified type Anemia, unspecified type documented in this encounter Discontinued Medications Medication Sig Discontinue Reason Start Date End Da te dicyclomine (BENTYL) 10 mg capsule Take 1 capsule (10 mg total) by mouth 2 (two) times a day. Formulary change 11/02/2024 documented as of this encounter Additional Health Concerns Infection Onset Date Last Indicated Resolved Time Gastrointestinal Rule-Out 11/02/2024 11/02/2024 documented as of this encounter Care Teams Plumbing Foreman Relationship Specialty Start Date End Date Hilary Vail NP [address] [facility] [place] [address] PCP - General Internal Medicine 04/29/16 documented as of this encounter
--- OUTSIDE RECORDS SUMMARY | 2024-11-03 14:38 | XMS_ITS | Clinical Summary ---
Author Organization [address] [place] [address] [place] [phone] Phone Care Team Providers Care Hand Reamer Name Role Phone Haylee carreon GE Primary Care Provider [phone] Allergies Active Allergy Reactions Criticality Noted Date Comments Bacitracin Itching 08/22/2021 Oxaprozin Hives,Rash 10/18/2018 Neomycin-Polymyxin B Gu 05/06/2022 Penicillins Hives,Itching,Rash 10/18/2018 Sumatriptan Hives,Rash 10/18/2018 Tamoxifen Flushing,Hives 10/18/2018 Presyncope, Abdominal pain Medications leflunomide (ARAVA) 20 mg tablet Take 1 tablet (20 mg total) by mouth 1 (one) time each day. Active clindamycin (CLEOCIN) 300 mg capsule Take 2 capsules (600 mg total) by mouth See administration instructions. Take 2 caps 1hr before dental appts Active multivitamin with minerals tablet Take by mouth. Activ e carvediloL (COREG) 25 mg tablet Take 12.5 mg by mouth 2 (two) times a day with meals. Active rosuvastatin (CRESTOR) 20 mg tablet Take 1 tablet (20 mg total) by mouth 1 (one) time each day. Active FLUoxetine (PROzac) 20 mg capsule Take 1 capsule (20 mg total) by mouth 1 (one) time each day. Active aspirin 81 mg chewable tablet Chew 1 tablet (81 mg total) 1 (one) time each day. Active ferrous sulfate 325 mg (65 mg elemental iron) tablet Take 1 tablet (325 mg total) by mouth 2 (two) times a day. Active amitriptyline (ELAVIL) 10 mg tablet Take 1 tablet (10 mg total) by mouth. at bedtime. Active omeprazole OTC (PriLOSEC OTC) 20 mg EC tabletIndicatio ns:Black stool,Iron deficiency anemia, unspecified iron deficiency anemia type Take 1 tablet (20 mg total) by mouth 2 (two) times a day. Do not crush, chew, or split. 180 tablet 3 024 2024 Active ondansetron (ZOFRAN) 4 mg tabletIndicatio ns:Nausea and vomiting, unspecified vomiting type Take 1 tablet (4 mg total) by mouth every 8 (eight) hours if needed for nausea or vomiting. 30 tablet 2 025 2024 Active dicyclomine (BENTYL) 20 mg tabletIndicatio ns:Generalized abdominal pain Take 1 tablet (20 mg total) by mouth 4 (four) times a day if needed (abdominal pain). 120 each 11 025 2025 Active dicyclomine (BENTYL) 10 mg capsule Take 1 capsule (10 mg total) by mouth 2 (two) times a day. 2024 Discontinued(F ormulary change) amLODIPine (NORVASC) 2.5 mg tabletIndicatio ns:Primary hypertension Take 1 tablet (2.5 mg total) by mouth 1 (one) time each day. 90 each 1 024 2024 Discontinued Active Problems Problem Noted Date Diagnosed Date Pre-syncope 09/22/2024 Assessment & Plan (09/22/2024 12:20 PM EST): As above we will update an ischemic workup as well as an echocardiogram evaluation. The patient multiple comorbidities that may be contributing to these presyncopal episodes; we will continue to readdress this as needed. Emergency room precautions were reviewed. Orders: Transthoracic echocardiogram (TTE) complete with PRN contrast, bubble, strain, and 3D order panel; Future Cardiac event monitor; Future Nuclear stress test with myocardial perfusion; Future Palpitations 09/22/2024 Assessment & Plan (09/22/2024 12:20 PM EST): We will evaluate her palpitations further with a 30-day monitor and continue to readdress this as needed. Orders: Cardiac event monitor; Future Status post coronary artery bypass graft 025 Assessment & Plan (09/22/2024 12:20 PM EST): Orders: Nuclear stress test with myocardial perfusion; Future Primary hypertension 08/09/2024 Overview (08/09/2024): Last Assessment & Plan: Currently her enalapril is on hold because of acute kidney injury with recent hospitalization. She will be meeting with nephrology in the very near future who will establish when safe to return to enalapril. My repeat blood pressure was 120/70 here in the office. She does not appear to be having symptoms of hypotension. Pressure does not appear to be above 140 holding her REECE inhibitor presently. Recommend low-sodium diet style modifications to the best of her ability at this time. Assessment & Plan (09/22/2024 12:20 PM EST): Blood pressure is on the low side of normal today; in conjunction with her presyncopal episodes that her feels started after her amlodipine was reinitiated, we will decrease her amlodipine dosing to 2.5 mg daily and see if this improves symptoms. She will check her blood pressure approximately 2 hours after her medications and notify our office if they are consistently elevated or if she is symptomatic with a systolic blood pressure less than 110. She will continue to follow with nephrology for her history of CKD. Orders: amLODIPine (NORVASC) 2.5 mg tablet; Take 1 tablet (2.5 mg total) by mouth 1 (one) time each day. SOB (shortness of breath) 03/25/2023 CAD (coronary artery disease) 03/23/2023 Overview (08/09/2024): Last Assessment & Plan: Underwent CABG at the time of her aortic valve replacement 2 bypass grafts in 2020. She is not experiencing any exertional chest pain. Because of recent fatigue, shortness of breath, and chest discomfort she underwent a nuclear stress test 2 weeks ago during hospitalization which showed no clear evidence of ischemia. Modification of cardiac risk factors recommended. One could consider additional rosuvastatin dosing given her Cardio vascular disease history as well as TIA. Meantime healthful diet advancing activity as tolerated recovering from her femur fracture Assessment & Plan (09/22/2024 12:20 PM EST): The patient's functional capacity is quite limited; as such, her low level of activity may not be eliciting ischemic symptoms. However, given her recent symptoms of presyncope and palpitations, we will update an ischemic workup for further evaluation. She will not be safe to walk on a treadmill and we did discuss a pharmacological nuclear stress test today which she is agreeable to. Continue carvedilol, amlodipine, rosuvastatin and aspirin. The patient was advised to seek emergent medical attention by calling 911 if they were to develop severe dyspnea, chest pain that did not resolve with rest, or if they were to faint. Orders: Nuclear stress test with myocardial perfusion; Future Lipid panel with reflex to direct LDL; Future Non-cardiac chest pain 03/23/2023 Assessment & Plan (09/22/2024 12:20 PM EST): The patient's right sided chest discomfort has been present since her cardiac surgery; her postoperative course was quite complicated by both infection and wound washouts with wound VAC placement. It does not appear to be cardiac in origin musculoskeletal in nature. Aortitis syndrome 10/21/2022 Colitis 10/21/2022 Heart murmur, systolic 05/06/2022 Congenital Q-T prolongation on ECG 03/06/2021 Paroxysmal atrial fibrillation 03/06/2021 Nonrheumatic aortic (valve) stenosis 11/12/2020 Assessment & Plan (09/22/2024 12:20 PM EST): Nonrheumatic aortic valve insufficiency 11/12/19 Assessment & Plan (09/22/2024 12:20 PM EST): Now status post aortic valve replacement in 2020; on her most recent echocardiogram completed 05/2023, her bioprosthetic aortic valve was not well-visualized and the mean gradient was 16 mmHg without significant aortic regurgitation. In conjunction with her episodes of presyncope as outlined above we will update an echocardiogram for reevaluation. However, there is no significant murmur noted on exam today to cause concern for worsening valvular function. Snoring 11/12/2020 Anemia 08/17/2019 Assessment & Plan (11/02/2024 6:02 PM EST): No past blood work to review. Patient states she has upcoming appointment with hematology tomorrow. Schedule for capsule endoscopy given ongoing issues and continued anemia, per patient. Orders: CBC; Future Iron and TIBC; Future Ferritin, Future Anxiety 08/17/2019 Aortic atherosclerosis 08/17/2019 Assessment & Plan (09/22/2024 12:20 PM EST): We will continue to monitor blood pressure and cholesterol for adequate control as above. Orders: ECG 12 lead Aortic mural thrombus 08/17/2019 Depression 08/17/2019 Hyperlipidemia 08/17/2019 Overview (08/09/2024): Last Assessment & Plan: Currently on rosuvastatin 20 not describing unusual myalgia, again one may consider and incremental increase in her rosuvastatin or the addition of ezetimibe goal LDL towards 50 in a patient with known coronary disease and other noted vascular disease. Assessment & Plan (09/22/2024 12:20 PM EST): No recent lipid panel on file; we will update this today and readdress this as needed. LDL goal for this patient who has a history of coronary artery disease is less than 70. Continue rosuvastatin. Orders: Lipid panel with reflex to direct LDL; Future Insomnia 08/17/2019 Migraine 08/17/2019 Osteoarthritis 08/17/2019 Overview (08/09/2024): Thoracic, & Lumbar Spine Rheumatoid arthritis 08/17/2019 Stage 3a chronic kidney disease 08/17/2019 Subclavian artery stenosis 08/17/2019 Overview (08/09/2024): Right TIA (transient ischemic attack) 08/17/2019 Bilateral carotid artery stenosis 10/18/2018 Overview (08/09/2024): Last Assessment & Plan: Stable Encounters Date Type Department Care Team Description 11/03/2024 1:00 PM EST Office Visit [facility] Hematology Oncology [address] [place] [address] Carolann Castro MD Anemia, unspecified type 11/02/2024 3:25 PM EST Lab Draw Station - [address] [phone] Anemia, unspecified type (Primary Dx); Coronary artery disease involving [place] coronary artery of [place] heart without angina pectoris; Hyperlipidemia, unspecified hyperlipidemia type; Nausea and vomiting, unspecified vomiting type; Generalized abdominal pain 11/02/2024 2:20 PM EST Office Visit Gastroenterology - [address] [phone] Heather Blair PA Nausea and vomiting, unspecified vomiting type (Primary Dx); Generalized abdominal pain; Diarrhea, unspecified type; Anemia, unspecified type 10/17/2024 12:30 PM EST Ancillary Procedure [facility] - [address] [place] [address] Pre-syncope; H/O aortic valve replacement 10/01/2024 10:00 AM EST Ancillary Procedure [facility] - [address] [place] [address] Pre-syncope; Palpitations 09/30/2024 Telephone Gastroenterology - [address] [phone] Chintan Kilgore PA 09/26/2024 Telephone Gastroenterology - [address] [phone] Ania Ruvalcaba MA 09/22/2024 8:39 AM EST Anesthesia Event [facility] Endoscopy [address] [place] [phone] Ghanshyam Moran MD 09/22/2024 7:23 AM EST - 09/22/2024 11:59 PM EST Hospital Encounter [facility] Endoscopy [address] [place] [phone] Ghanshyam Moran MD Sampson, Joanna, MD Colon cancer screening Discharge Disposition: Home or Self Care 09/22/2024 Telephone [facility] - [address] [place] [phone] Calixto Ocasio MD ROCT - [id number] (Ok to Book); ROCT Enrollment (Enrolling patient for 30 day ROCT) 09/20/2024 9:10 AM EST Office Visit [facility] - [address] [place] [phone] Dania Hamm NP Coronary artery disease involving [place] coronary artery of [place] heart without angina pectoris (Primary Dx); Non-cardiac chest pain; Status post coronary artery bypass graft; Primary hypertension; Hyperlipidemia, unspecified hyperlipidemia type; Aortic atherosclerosis (CMS/HCC); Nonrheumatic aortic valve insufficiency; Nonrheumatic aortic (valve) stenosis; H/O aortic valve replacement; Palpitations; Pre-syncope 09/19/2024 11:15 AM EST Ancillary Procedure [facility] - [address] [place] [phone] Bilateral carotid artery stenosis 09/08/2024 8:00 AM EST Office Visit Gastroenterology - [address] [place] [phone] Chintan Kilgore PA Black stool (Primary Dx); Diarrhea, unspecified type; Dizzy; Iron deficiency anemia, unspecified iron deficiency anemia type 09/08/2024 Telephone Gastroenterology - [address] [place] [phone] Sanjuana Mccormick MD 09/05/2024 Telephone Gastroenterology - [address] [place] [phone] Sanjuana Mccormick MD from Last 3 Months Immunizations Name Administration Dates Next Due Pfizer SARS-CoV-2 COVID-19, mRNA, LNP-S, preservative free 05/12/2021,01/23/2021,01/02/2021 Surgical History Surgery Date Site/Laterality Comments MASTECTOMY 1999 Right PROCEDURE: HISTORICAL MASTECTOMY BREAST LUMPECTOMY 1981 Left PROCEDURE: HISTORICAL BREAST LUMPECTOMY COLONOSCOPY 09/22/2024 recall 7 years TONSILLECTOMY PROCEDURE: HISTORICAL TONSILLECTOMY AORTIC VALVE REPLACEMENT PROCEDURE: HISTORICAL AORTIC VALVE REPL COLONOSCOPY 05/22/2020 - 06/20/2020 for anemia/diarrhea - bx - collagenous colits, hemorrhoids COLONOSCOPY 07/22/2013 - 08/20/2013 hemorrhoids ESOPHAGOGASTRODUODENOSCOPY 05/22/2020 - 06/20/2020 nl with nl bx of stomach and small bowel for anemia ESOPHAGOGASTRODUODENOSCOPY 07/22/2013 - 08/20/2013 gastritis- reactive gastropathy suggestive of healing ulcer or erosion, nl esophageal bx for dysphagia COLONOSCOPY 01/19/2009 - 02/18/2009 hemorrhiods - 5 yr fhx ESOPHAGOGASTRODUODENOSCOPY 09/22/2024 Medical History Medical History Date Comments HTN (hypertension) DX:HTN (hyper tension) Hyperlipidemia 08/17/2019 DX:Hyperlipidemi a Rheumatoid arthritis (CMS/HCC) 08/17/2019 D X:Rheumatoid arthritis (HCC) Migraine 08/17/2019 DX:Migraine Aortic atherosclerosis ([facility]) 08/17/2019 DX:Aortic atherosclerosis (HCC) Aortic mural thrombus ([facility]/HCC) 08/17/2019 DX:Aortic mural thrombus (HCC) Anxiety 08/17/2019 DX:Anxiety Anemia 08/17/2019 DX:Anemia Depression 08/17/2019 DX:Depression Insomnia 08/17/2019 DX:Insomnia CKD (chronic kidney disease) stage 3, GFR 30-59 ml/min (CMS/HCC) 08/17/2019 DX:CKD (chronic kidney dise ase) stage 3, GFR 30-59 ml/min ([facility]) Subclavian artery stenosis ([facility]) 08/17/2019 DX:Subclavian artery stenosis (HCC); COMMENT: Right Osteoarthritis 08/17/2019 DX:Osteoarthriti s; COMMENT: Thoracic, & Lumbar Spine History of breast cancer 04/21/2000 DX:Hist ory of breast cancer; COMMENT: 1998 Bilateral carotid artery stenosis 10/18/2018 DX:Bilateral carotid artery stenosis TIA (transient ischemic attack) 08/17/2019 DX:TIA (transient ischemic attack) Abnormal glucose DX:Abnormal glu cose Body aches DX:Body aches Cellulitis DX:Cellulitis Cold intolerance DX:Cold intoler ance Cough DX:Cough Dermoid cyst of ovary DX:Dermoid cyst of ovary Diplopia DX:Diplopia Hiatal hernia DX:Hiatal hernia Microscopic colitis DX:Microscop ic colitis Migraine, unspecified, not intractable, without status migrainosus DX:Migraine, unspecified, no t intractable, without status migrainosus Nonhealing surgical wound DX:Non healing surgical wound Class 1 obesity DX:Class 1 obesi ty Weight loss DX:Weight loss SOB (shortness of breath) DX:SOB (shortness of breath) Elevated brain natriuretic p eptide (BNP) level DX:Elevated brain natriureti c peptide (BNP) level Chronic anemia DX:Chronic anemi a Acute kidney injury superimp osed on chronic kidney disease (CMS/HCC) DX:Acute kidney injur y superimposed on chronic kidney disease (HCC) Aching headache GERD (gastroesophageal reflu x disease) Family History Medical History Relation Name Comments Other: car accident Father Breast cancer Mother Uterine Cancer , CVA in her 60's Hypertension Mother Stroke Mother Relation Name Status Comments Father Mother Social History Tobacco [...] on file Sexual Orientation Not on file Obstetrics History Last Filed Vital Signs Vital Sign Reading Time Taken Comments Blood Pressure 131/74 11/03/2024 1:00 PM EST Pulse 81 11/03/2024 1:00 PM EST Temperature 36.9 ??C (98.5 ??F) 11/03/2024 1:00 PM ES T Respiratory Rate 20 09/22/2024 9:32 AM EST Oxygen Saturation 99% 11/03/2024 1:00 PM EST Inhaled Oxygen Concentration - - Weight 50.8 kg (112 lb) 11/03/2024 1:00 PM EST Height 157.5 cm (5' 2 ) 11/03/2024 1:00 PM EST Body Mass Index 20.49 11/03/2024 1:00 PM EST Plan of Treatment Upcoming Encounters Date Type Department Care Team (Late st Contact Info) Description 11/23/2024 1:15 PM EST Office Visit [facility] Hematology Oncology [address] [place] [phone] Carolann Castro MD [address] [place] [address] 11/25/2024 10:40 AM EST Office Visit Gastroenterology - [address] [phone] Chintan Kilgore PA [address] [address] 12/06/2024 7:30 AM EDT Clinical Support Gastroenterology - [address] [phone] 12/21/2024 2:10 PM EDT Office Visit Gastroenterology - [address] [phone] Chintan Kilgore PA [address] [address] Health Maintenance Due Date Last Done Comments Breast Cancer Screening 1955 DTaP,Tdap,and Td Vaccines (1 - Tdap) 1975 Zoster Vaccines (1 of 2) 2006 RSV Immunization Patients 60+ Years Old (1 - Risk 60-74 years 1-dose series) 2016 Pneumococcal Vaccine: 50+ Years (2 of 2 - PCV) 10/16/2020 10/16/2019 Depression Screening 08/30/2022 Hepatitis C Screening 08/30/2022 Medicare Annual Wellness Visit 08/30/2022 Social Influencers of Health Screening 08/30/2022 COVID-19 Vaccine ( season) 2024 06/18/2022, 01/08/2022, 05/12/2021, Additional history exists Falls Risk Assessment 09/22/2025 09/22/2024 Hypertension/CHF/CAD Annual BMP Blood Test 11/02/2025 11/03/2024, 11/02/2024, 01/29/2023 Cholesterol Screening (Lipid Panel) 11/02/2029 11/02/2024 Osteoporosis Screening (Bone Density Screening) 12/18/2032 12/18/2022 Colorectal Cancer Screening: Colonoscopy 09/22/2034 09/22/2024 Influenza Vaccine Completed 06/28/2024, , 06/11/2023, Additional history exists HIB Vaccines Aged Out No longer eligi ble based on patient's age to complete this topic HPV Vaccines Aged Out No longer eligi ble based on patient's age to complete this topic Hepatitis A Vaccines Aged Out No long er eligible based on patient's age to complete this topic Hepatitis B Vaccines Aged Out No long er eligible based on patient's age to complete this topic IPV Vaccines Aged Out No longer eligi ble based on patient's age to complete this topic MMR Vaccines Aged Out No longer eligi ble based on patient's age to complete this topic Meningococcal ACWY Vaccine Aged Out N o longer eligible based on patient's age to complete this topic Meningococcal B Vacine Aged Out No lo nger eligible based on patient's age to complete this topic RSV Immunization Patients Under 20 months Aged Out No longer eligible based on patient's age to complete this topic Varicella Vaccines Aged Out No longer eligible based on patient's age to complete this topic Medical Devices Implanted Type Area Clinical Biostatistician Device Identifier Shelf Expiration Date Model / Serial / Lot Femoral Nail Retrograde [id number] Stry-How [id number] Implanted:Qty: 1 on 01/28/2023 by Francia Hilario MD Left: [employer]ur [employer] 08/20/2032 [id number] / / [id number] Screw Locking 70x5mm T2 Alpha Stry-Tram [id number] Implanted:Qty: 1 on 01/28/2023 by Francia Hilario MD Left: Femur [employer] 10/21/2032 [id number] / / [id number] Screw Locking 5x50mm Stry-Tram [id number] Implanted:Qty: 1 on 01/28/2023 by Francia Hilario MD Left: Femur [employer] 07/21/2032 [id number] / / [id number] Screw Locking 5x37.5mm Stry-Tram [id number] Implanted:Qty: 1 on 01/28/2023 by Francia Hilario MD Left: Femur [employer] 11/18/2032 [id number] / / [id number] Screw Locking 5x37.5mm Stry-Tram [id number] Implanted:Qty: 1 on 01/28/2023 by Francia Hilario MD Left: Femur [employer] 03/20/2032 [id number] / / [id number] Procedures Procedure Name Priority Date/Time Associated Diagnosis Comments PROTEIN, TOTAL Routine 11/03/2024 1:25 PM EST Anemia, unspecified type CBC WITH AUTO DIFFERENTIAL Routine 11/03/2024 1:25 PM EST Anemia, unspecified type COMPREHENSIVE METABOLIC PANEL Routine 11/03/2024 1:25 PM EST Anemia, unspecified type HAPTOGLOBIN Routine 11/03/2024 1:25 PM EST Anemia, unspecified type RETICULOCYTE COUNT Routine 11/03/2024 1: 25 PM EST Anemia, unspecified type CBC AND DIFFERENTIAL Routine 11/03/2024 1:25 PM EST Anemia, unspecified type IRON AND TIBC Routine 11/03/2024 1:25 PM EST Anemia, unspecified type FERRITIN Routine 11/03/2024 1:25 PM EST Anemia, unspecified type VITAMIN B12 AND FOLATE Routine 11/03/2024 1:25 PM EST Anemia, unspecified type IRON AND TIBC Routine 11/02/2024 3:36 PM EST Anemia, unspecified type FERRITIN Routine 11/02/2024 3:36 PM EST Anemia, unspecified type COMPREHENSIVE METABOLIC PANEL Routine 11/02/2024 3:36 PM EST Nausea and vomiting, unspecified vomiting type Generalized abdominal pain AMYLASE Routine 11/02/2024 3:36 PM EST Nausea and vomiting, unspecified vomiting type Generalized abdominal pain LIPASE Routine 11/02/2024 3:36 PM EST Nausea and vomiting, unspecified vomiting type Generalized abdominal pain LIPID PANEL WITH REFLEX TO DIRECT LDL Routine 11/02/2024 3:36 PM EST Coronary artery disease involving [place] coronary artery of [place] heart without angina pectoris Hyperlipidemia, unspecified hyperlipidemia type TRANSTHORACIC ECHOCARDIOGRAM (TTE) COMPLETE STAT 10/17/2024 12:32 PM EST Pre-syncope H/O aortic valve replacement 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 ([facility]) Routine 10/03/2024 2:34 PM EST Pre-syncope Palpitations EGD Routine 09/22/2024 9:11 AM EST Colon cancer screening COLONOSCOPY Routine 09/22/2024 9:11 AM EST Colon cancer screening TISSUE EXAM Routine 09/22/2024 8:45 AM EST Colon cancer screening ECG 12-LEAD Routine 09/20/2024 9:23 AM EST Aortic atherosclerosis (CMS/HCC) VAS US DUPLEX CAROTID BILATERAL Routine 09/19/2024 11:35 AM EST Bilateral carotid artery stenosis BARRERA DEXA AXIAL SKELETON Routine 12/18/2022 7:48 AM EDT Encounter for screening for osteoporosis from Last 3 Months or Most Recently Relevant to Health Maintenance Results * (ABNORMAL) Vitamin B12 and folate (11/03/2024 1:25 PM EST) [facility] Vitamin B-12 1,543(H) 250 - 900 pcg/mL LAB CHEMISTRY METHOD 11/03/2024 2:36 PM EST [facility] Folate >20.0(H) 2.8 - 17.0 ng/ml LAB CHEMISTRY METHOD 11/03/2024 2:36 PM EST [facility] Blood Venous blood specimen / Unknown Venipuncture / Unknown 11/03/2024 1:25 PM EST 11/03/2024 1:37 PM EST Carolann Castro MD LAB BLOOD ORDERABLES Final R esult [facility] [address] [place] [address], * (ABNORMAL) CBC auto differential (11/03/2024 1:25 PM EST) [facility] WBC 13.5(H) 4.8 - 10.8 K/mcL LAB HEMETOLOGY METHOD 11/03/2024 1:52 PM [facility] RBC 3.00(L) 3.80 - 4.80 M/mcL LAB HEMETOLOGY METHOD 11/03/2024 1:52 PM [facility] Hemoglobin 8.3(L) 11.5 - 16.0 g/dL LAB HEMETOLOGY METHOD 11/03/2024 1:52 PM [facility] Hematocrit 27.5(L) 35.0 - 47.0 % LAB HEMETOLOGY METHOD 11/03/2024 1:52 PM [facility] MCV 92.3 79.0 - 98.0 FL LAB HEMETOLOGY METHOD 11/03/2024 1:52 PM [facility] MCH 27.9 27.0 - 32.0 pcg LAB HEMETOLOGY METHOD 11/03/2024 1:52 PM [facility] MCHC 30.2(L) 32.0 - 37.0 g/dL LAB HEMETOLOGY METHOD 11/03/2024 1:52 PM [facility] RDW 16.9(H) 11.0 - 15.0 % LAB HEMETOLOGY METHOD 11/03/2024 1:52 PM [facility] Platelets 422(H) 130 - 400 K/mcL LAB HEMETOLOGY METHOD 11/03/2024 1:52 PM [facility] MPV 9.7 7.0 - 11.0 FL LAB HEMETOLOGY METHOD 11/03/2024 1:52 PM [facility] NRBC 0.0 <1.0 % LAB HEMETOLOGY METHOD 11/03/2024 1:52 PM [facility] NRBC Absolute 0.00 <0.10 K/mcL LAB HEMETOLOGY METHOD 11/03/2024 1:52 PM [facility] Neutrophils Relative 80.3 % LAB HEMETOLOGY METHOD 11/03/2024 1:52 PM [facility] Lymphocytes Relative 11.1 % LAB HEMETOLOGY METHOD 11/03/2024 1:52 PM [facility] Monocytes Relative 6.8 % LAB HEMETOLOGY METHOD 11/03/2024 1:52 PM [facility] Eosinophils Relative 0.8 % LAB HEMETOLOGY METHOD 11/03/2024 1:52 PM [facility] Basophils Relative 0.4 % LAB HEMETOLOGY METHOD 11/03/2024 1:52 PM [facility] Immature Granulocytes Relative 0.6 % LAB HEMETOLOGY METHOD 11/03/2024 1:52 PM [facility] Neutrophils Absolute 10.81(H) 1.50 - 7.00 K/mcL LAB HEMETOLOGY METHOD 11/03/2024 1:52 PM EST [facility] Lymphocytes Absolute 1.50 1.00 - 5.00 K/mcL LAB HEMETOLOGY METHOD 11/03/2024 1:52 PM EST [facility] Monocytes Absolute 0.92 0.20 - 1.00 K/mcL LAB HEMETOLOGY METHOD 11/03/2024 1:52 PM EST [facility] Eosinophils Absolute 0.11 0.00 - 0.50 K/[facility] LAB HEMETOLOGY METHOD 11/03/2024 1:52 PM EST [facility] Basophils Absolute 0.05 0.00 - 0.20 K/[facility] LAB HEMETOLOGY METHOD 11/03/2024 1:52 PM EST [facility] Immature Granulocytes Absolute 0.08(H) 0.00 - 0.03 K/[facility] LAB HEMETOLOGY METHOD 11/03/2024 1:52 PM EST [facility] Blood Venous blood specimen / Unknown Venipuncture / Unknown 11/03/2024 1:25 PM EST 11/03/2024 1:37 PM EST [facility] Neri Castro MD LAB BLOOD ORDERABLES Final R esult [facility] [address] [place] [address], * (ABNORMAL) Iron and TIBC (11/03/2024 1:25 PM EST) Only the most recent of2 resultswithin the time period is included. Iron 114 40 - 150 mcg/dL LAB CHEMISTRY METHOD 11/03/2024 2:14 PM EST [facility] TIBC 150(L) 250 - 450 mcg/dL LAB CHEMISTRY METHOD 11/03/2024 2:14 PM EST [facility] Iron Saturation 76(H) 15 - 50 % LAB CHEMISTRY METHOD 11/03/2024 2:14 PM EST [facility] Blood Venous blood specimen / Unknown Venipuncture / Unknown 11/03/2024 1:25 PM EST 11/03/2024 1:37 PM EST us Carolann Castro MD LAB BLOOD ORDERABLES Final R esult Performing Organization Address City/[facility]/ZIP Co de Phone Number [facility] [address] [place] [address], [place] [phone] * (ABNORMAL) Reticulocyte count (11/03/2024 1:25 PM EST) [facility] Retic Ct Abs 0.060 0.030 - 0.090 M/mcL LAB HEMETOLOGY METHOD 11/03/2024 1:52 PM [facility] Retic Ct Pct 2.0(H) 0.7 - 1.7 % LAB HEMETOLOGY METHOD 11/03/2024 1:52 PM EST [facility] Immature Retic Fract 14.7 2.3 - 15.9 % LAB HEMETOLOGY METHOD 11/03/2024 1:52 PM EST [facility] Reticulocyte Hemoglobin 32.2 >29.0 pcg LAB HEMETOLOGY METHOD 11/03/2024 1:52 PM EST [facility] Blood Venous blood specimen / Unknown Venipuncture / Unknown 11/03/2024 1:25 PM EST 11/03/2024 1:37 PM EST us Carolann Castro MD LAB BLOOD ORDERABLES Final R esult Performing Organization Address City/[facility]/ZIP Co de Phone Number [facility] [address] [place] [address], [place] [phone] * Protein, total (11/03/2024 1:25 PM EST) [facility] Total Protein 6.7 6.0 - 8.0 g/dL LAB CHEMISTRY METHOD 11/03/2024 2:15 PM EST [facility] Blood Venous blood specimen / Unknown Venipuncture / Unknown 11/03/2024 1:25 PM EST 11/03/2024 1:37 PM EST Carolann Castro MD LAB BLOOD ORDERABLES Final R esult Performing Organization Address City/[facility]/ZIP Co de Phone Number [facility] [address] [place] [address], [place] [phone] * (ABNORMAL) Haptoglobin (11/03/2024 1:25 PM EST) Haptoglobin 223(H) 16 - 200 mg/dL LAB CHEMISTRY METHOD 11/03/2024 2:14 PM EST [facility] Blood Venous blood specimen / Unknown Venipuncture / Unknown 11/03/2024 1:25 PM EST 11/03/2024 1:37 PM EST Carolann Castro MD LAB BLOOD ORDERABLES Final R esult Performing Organization Address [facility] Co de Phone Number [facility] [address] [place] [address], [place] [phone] * (ABNORMAL) Ferritin (11/03/2024 1:25 PM EST) Only the most recent of2 resultswithin the time period is included. Ferritin 856(H) 8 - 252 ng/mL LAB CHEMISTRY METHOD 11/03/2024 2:36 PM EST [facility] Blood Venous blood specimen / Unknown Venipuncture / Unknown 11/03/2024 1:25 PM EST 11/03/2024 1:37 PM EST Carolann Castro MD LAB BLOOD ORDERABLES Final R esult [facility] [address] [place] [address], [place] [phone] * (ABNORMAL) Comprehensive metabolic panel (11/03/2024 1:25 PM EST) Only the most recent of2 resultswithin the time period is included. Sodium 136 133 - 145 mmol/L LAB CHEMISTRY METHOD 11/03/2024 2:15 PM EST [facility] Potassium 3.9 3.5 - 5.5 mmol/L LAB CHEMISTRY METHOD 11/03/2024 2:15 PM [facility] Chloride 108 96 - 110 mmol/L LAB CHEMISTRY METHOD 11/03/2024 2:15 PM [facility] CO2 26 21 - 32 mmol/L LAB CHEMISTRY METHOD 11/03/2024 2:15 PM [facility] Anion Gap 2(L) 3 - 11 LAB CHEMISTRY METHOD 11/03/2024 2:15 PM [facility] Glucose 91 70 - 100 mg/dL LAB CHEMISTRY METHOD 11/03/2024 2:15 PM [facility] BUN 27(H) 5 - 25 mg/dL LAB CHEMISTRY METHOD 11/03/2024 2:15 PM [facility] Creatinine 1.52(H) 0.50 - 1.10 mg/dL LAB CHEMISTRY METHOD 11/03/2024 2:15 PM EST [facility] eGFR 37(L) >=60 mL/min/1. 73m2 LAB CHEMISTRY METHOD 11/03/2024 2:15 PM [facility] Comment:Calculation based on the??Chronic Kidney Disease Epidemiology Collaboration (CKD-EPI) equation refit??without adjustment for race. BUN/Creatinine Ratio 17.8 LAB CHEMISTRY METHOD 11/03/2024 2:15 PM EST [facility] Calcium 9.7 8.5 - 10.5 mg/dL LAB CHEMISTRY METHOD 11/03/2024 2:15 PM [facility] AST (SGOT) 23 10 - 42 unit/L LAB CHEMISTRY METHOD 11/03/2024 2:15 PM [facility] ALT (SGPT) 11 10 - 60 unit/L LAB CHEMISTRY METHOD 11/03/2024 2:15 PM [facility] Alkaline Phosphatase 186(H) 42 - 121 unit/L LAB CHEMISTRY METHOD 11/03/2024 2:15 PM [facility] Total Protein 6.7 6.0 - 8.0 g/dL LAB CHEMISTRY METHOD 11/03/2024 2:15 PM [facility] Albumin 3.0(L) 3.2 - 5.0 g/dL LAB CHEMISTRY METHOD 11/03/2024 2:15 PM [facility] Total Bilirubin 0.4 0.0 - 1.4 mg/dL LAB CHEMISTRY METHOD 11/03/2024 2:15 PM [facility] Blood Venous blood specimen / Unknown Venipuncture / Unknown 11/03/2024 1:25 PM EST 11/03/2024 1:37 PM EST Carolann Castro MD LAB BLOOD ORDERABLES Final R esult [facility] [address] [place] [address], * (ABNORMAL) Lipid panel with reflex to direct LDL (11/02/2024 3:36 PM EST) Cholesterol 145 0 - 200 mg/dL LAB CHEMISTRY METHOD 11/02/2024 5:01 PM [facility] Triglycerides 249(H) 0 - 150 mg/dL LAB CHEMISTRY METHOD 11/02/2024 5:01 PM [facility] HDL 38(L) >=40 mg/dL LAB CHEMISTRY METHOD 11/02/2024 5:01 PM [facility] LDL Calculated 57 0 - 100 mg/dL LAB CHEMISTRY METHOD 11/02/2024 5:01 PM EST [facility] VLDL Cholesterol Cecilio 49.8 mg/dL LAB CHEMISTRY METHOD 11/02/2024 5:01 PM EST [facility] Non HDL Chol. (LDL+VLDL) 107 <145 mg/dL LAB CHEMISTRY METHOD 11/02/2024 5:01 PM [facility] Chol/HDL Ratio 3.8 0.0 - 4.4 LAB CHEMISTRY METHOD 11/02/2024 5:01 PM EST [facility] Blood Venous blood specimen / Unknown Venipuncture / Unknown 11/02/2024 3:36 PM EST 11/02/2024 4:07 PM EST Dania Hamm REFERENCE LIBRARIAN LAB BLOOD ORDERABLES Final Result Performing Organization Address City/[facility]/ZIP Co de Phone Number [facility] [address] [place] [address], [place] [phone] * Lipase (11/02/2024 3:36 PM EST) Lipase 56 13 - 75 unit/L LAB CHEMISTRY METHOD 11/02/2024 5:00 PM [facility] Blood Venous blood specimen / Unknown Venipuncture / Unknown 11/02/2024 3:36 PM EST 11/02/2024 4:07 PM EST Heather Blair PA LAB BLOOD ORDERABLES Final Resu lt [facility] [address] [place] [address], [place] [phone] * Amylase (11/02/2024 3:36 PM EST) Amylase 62 25 - 115 unit/L LAB CHEMISTRY METHOD 11/02/2024 5:00 PM EST [facility] Blood Venous blood specimen / Unknown Venipuncture / Unknown 11/02/2024 3:36 PM EST 11/02/2024 4:07 PM EST us Heather MULLINS LAB BLOOD ORDERABLES Final Resu lt [facility] [address] [place] [address], [place] [phone] * (ABNORMAL) TRANSTHORACIC ECHOCARDIOGRAM (TTE) COMPLETE (10/17/2024 12:32 PM EST) Left Atrium Minor [place] 5.9 cm CV PACS Left Atrium Major [place] 5.5 cm CV PACS LA Area Sys [...] Volume 61 mL CV PACS MV Deceleration [place] 3.2 m/s2 CV PACS E Wave Deceleration [...] Details Overall the study quality was adequate. us Dania Hamm NP CV ECHO PROCEDURES Fi nal Result * 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 (MCOT) (10/03/2024 2:34 PM EST) Anatomical Region Laterality Modality Cardiac Diagnost ic Impressions 11/03/2024 8:49 AM EST Rare PVC's with one four beat run of VT. Frequent PAC's and several short runs of an ectopic atrial tachycardia. One run lasted 11 seconds. Narrative 11/03/2024 8:49 AM EST [facility] DIAGNOSTIC TESTING DEPARTMENT [address] [facility], [address] [address] TEL: FAX: TYPE OF TEST 30 day ROCT monitor. DATES OF MONITORIN10/01/24- 10/28/24 REQUESTING PHYSICIAN: Dania Hamm NP PRIMARY CARE PROVIDER: Haylee Vail NP INDICATION: Pre-syncope, Palpitations PRELIMINARY FINDINGS FROM FIRST CALL MEDICAL: 1. The predominant rhythm was sinus, with sinus arrhythmia. 2. The average heart rate was 70 bpm, minimum heart rate was 53 bpm, maximum heart rate was 135 bpm. 3. Total VE burden: 0.4% consisting of singles, triplet, & 5 Beat Run of AIVR. 4. Total SVE burden: 1.5% consisting of singles, couplets, triplets, SVE Bigeminy, SVE Trigeminy, with Atrial Run's present. 5. There were 1 patient triggered symptomatic events. us Dania Hamm NP CV CARDIAC SERVICES P ROCEDURES Final Result * COLONOSCOPY Anesthesia - MAC; [facility] ENDOSCOPY (09/22/2024 9:11 AM EST) Anatomical Region Laterality Modality Endoscopy 09/22/2024 8:50 AM EST Impressions 09/22/2024 9:11 AM EST - The examined portion of the ileum was normal. ? - One 2 mm polyp at the appendiceal orifice, removed ? with a cold snare. Resected and retrieved. ? - Diverticulosis in the sigmoid colon. ? - Internal hemorrhoids. Recommendation: ?- Await pathology results. ? - Repeat colonoscopy for surveillance based on ? pathology results. Narrative 09/22/2024 9:11 AM EST [facility] Patient Name: Frida Garcia Procedure Date: 09/22/2024 8:50 AM Date of : 1955 Age: 69 Gender: Female Note Status: Finalized Attending MD: Sanjuana Mccormick MD, Procedure Date No Time: 09/22/2024 Procedure: ? Colonoscopy Indications: ? Iron deficiency anemia Providers: ? Sanjuana Mccormick MD Referring MD: ?Haylee Vail NP Medicines: ? Propofol per Anesthesia Complications: ? No immediate complications. Estimated Blood Loss: ? Estimated blood loss: none. Procedure: ? Pre-Anesthesia Assessment: ? - ASA Grade Assessment: III - A patient with severe ? systemic disease. ? After I obtained informed consent, the scope was ? passed under direct vision. Throughout the procedure, ? the patient's blood pressure, pulse, and oxygen ? saturations were monitored continuously.The ? Colonoscope was introduced through the anus and ? advanced to the terminal ileum. The colonoscopy was ? performed without difficulty. The patient tolerated ? the procedure well. The quality of the bowel ? preparation was excellent. Findings: ?The perianal and digital rectal examinations were ? normal. ? The terminal ileum appeared normal. ? A 2 mm polyp was found in the appendiceal orifice. The ? polyp was sessile. The polyp was removed with a cold ? snare. Resection and retrieval were complete. ? A few small-mouthed diverticula were found in the ? sigmoid colon. ? Internal hemorrhoids were found during retroflexion. ? The hemorrhoids were Grade I (internal hemorrhoids ? that do not prolapse). Procedure Code(s): ? --- Professional --- ? 95150, Colonoscopy, flexible; with removal of ? tumor(s), polyp(s), or other lesion(s) by snare ? technique Diagnosis Code(s): ? --- Professional --- ? D50.9, Iron deficiency anemia, unspecified ? D12.1, Benign neoplasm of appendix CPT copyright 2020 [employer]. All rights reserved. The codes documented in this report are preliminary and upon remote medical coder review may be revised to meet current compliance requirements. Sanjuana Mccormick MD 09/22/2024 9:11:24 AM This report has been signed electronically.Sanjuana Mccormick MD Number of Addenda: 0 Note Initiated On: 09/22/2024 8:50 AM Scope In: Scope Out: ? Endoscopy Department at [facility] - [address] [place] [address], ? [place] [address] Procedure Note Sanjuana Mccormick MD - 09/22/2024 [facility] Patient Name: Frida Garcia Procedure Date: 09/22/2024 8:50 AM Date of : 1955 Age: 69 Gender: Female Note Status: Finalized Attending MD: Sanjuana Mccormick MD, Procedure Date No Time: 09/22/2024 Procedure: Colonoscopy Indications: Iron deficiency anemia Providers: Sanjuana Mccormick MD Referring MD: Haylee Vail NP Medicines: Propofol per Anesthesia Complications: No immediate complications. Estimated Blood Loss: Estimated blood loss: none. Procedure: Pre-Anesthesia Assessment: - ASA Grade Assessment: III - A patient with severe systemic disease. After I obtained informed consent, the scope was passed under direct vision. Throughout theprocedure, the patient's blood pressure, pulse, and oxygen saturations were monitored continuously.The Colonoscope was introduced through the anus and advanced to the terminal ileum. The colonoscopy was performed without difficulty. The patient tolerated the procedure well. The quality of the bowel preparation was excellent. Findings: The perianal and digital rectal examinations were normal. The terminal ileum appeared normal. A 2 mm polyp was found in the appendiceal orifice.The polyp was sessile. The polyp was removed with acold snare. Resection and retrieval were complete. A few small-mouthed diverticula were found in the sigmoid colon. Internal hemorrhoids were found duringretroflexion. The hemorrhoids were Grade I (internal hemorrhoids that do not prolapse). Procedure Code(s): --- Professional --- 52382, Colonoscopy, flexible; with removal of tumor(s), polyp(s), or other lesion(s) by snare technique Diagnosis Code(s): --- Professional --- D50.9, Iron deficiency anemia, unspecified D12.1, Benign neoplasm of appendix CPT copyright 2020 [employer]. All rights reserved. The codes documented in this report are preliminary and upon remote medical coder reviewmay be revised to meet current compliance requirements. Sanjuana Mccormick MD 09/22/2024 9:11:24 AM This report has been signed electronically.Sanjuana Mccormick MD Number of Addenda: 0 Note Initiated On: 09/22/2024 8:50 AM Scope In: Scope Out: Endoscopy Department at [facility] - [address] [place] [phone] IMPRESSION: - The examined portion of the ileum was normal. - One 2 mm polyp at the appendiceal orifice,removed with a cold snare. Resected and retrieved. - Diverticulosis in the sigmoid colon. - Internal hemorrhoids. Recommendation: - Await pathology results. - Repeat colonoscopy for surveillance based on pathology results. Sanjuana Mccormick MD GI~PROCEDURE ORDERABLES Final Result * EGD Anesthesia - MAC; [facility] ENDOSCOPY (09/22/2024 9:11 AM EST) Anatomical Region Laterality Modality Endoscopy 09/22/2024 8:34 AM EST Impressions 09/22/2024 8:50 AM EST - Normal esophagus. ? - Normal stomach. ? - Normal examined duodenum. Biopsied. Recommendation: ?- Await pathology results. Narrative 09/22/2024 8:50 AM EST [facility] Patient Name: Frida Garcia Procedure Date: 09/22/2024 8:34 AM Date of : 1955 Age: 69 Gender: Female Note Status: Finalized Attending MD: Sanjuana Mccormick MD, Procedure Date No Time: 09/22/2024 Procedure: ? Upper GI endoscopy Indications: ? Iron deficiency anemia, Melena Providers: ? Sanjuana Mccormick MD Referring MD: ?Haylee Vail NP Medicines: ? Propofol per Anesthesia Complications: ? No immediate complications. Estimated Blood Loss: ? Estimated blood loss: none. Procedure: ? Pre-Anesthesia Assessment: ? - ASA Grade Assessment: III - A patient with severe ? systemic disease. ? After obtaining informed consent, the endoscope was ? passed under direct vision. Throughout the procedure, ? the patient's blood pressure, pulse, and oxygen ? saturations were monitored continuously.The Endoscope ? was introduced through the mouth, and advanced to the ? second part of duodenum. The upper GI endoscopy was ? accomplished without difficulty. The patient tolerated ? the procedure well. Findings: ?The esophagus was normal. ? The stomach was normal. ? The cardia and gastric fundus were normal on ? retroflexion. ? The examined duodenum was normal. Biopsies for ? histology were taken with a cold forceps for ? evaluation of celiac disease. Procedure Code(s): ? --- Professional --- ? 08523, Esophagogastroduodenoscopy, flexible, ? transoral; with biopsy, single or multiple Diagnosis Code(s): ? --- Professional --- ? D50.9, Iron deficiency anemia, unspecified ? K92.1, Melena (includes Hematochezia) CPT copyright 202 [employer]. All rights reserved. The codes documented in this report are preliminary and upon remote medical coder review may be revised to meet current compliance requirements. Sanjuana Mccormick MD 09/22/2024 8:50:17 AM This report has been signed electronically.Sanjuana Mccormick MD Number of Addenda: 0 Note Initiated On: 09/22/2024 8:34 AM Scope In: Scope Out: ? Endoscopy Department at [facility] - [address] [place] [address], ? [place] [address] Procedure Note Sanjuana Mccormick MD - 09/22/2024 [facility] Patient Name: Frdia Garcia Procedure Date: 09/22/2024 8:34 AM Date of : 1955 Age: 69 Gender: Female Note Status: Finalized Attending MD: Sanjuana Mccormick MD, Procedure Date No Time: 09/22/2024 Procedure: Upper GI endoscopy Indications: Iron deficiency anemia, Melena Providers: Sanjuana Mccormick MD Referring MD: Haylee Vail NP Medicines: Propofol per Anesthesia Complications: No immediate complications. Estimated Blood Loss: Estimated blood loss: none. Procedure: Pre-Anesthesia Assessment: - ASA Grade Assessment: III - A patient with severe systemic disease. After obtaining informed consent, the endoscope was passed under direct vision. Throughout theprocedure, the patient's blood pressure, pulse, and oxygen saturations were monitored continuously.TheEndoscope was introduced through the mouth, and advanced tothe second part of duodenum. The upper GI endoscopy was accomplished without difficulty. The patienttolerated the procedure well. Findings: The esophagus was normal. The stomach was normal. The cardia and gastric fundus were normal on retroflexion. The examined duodenum was normal. Biopsies for histology were taken with a cold forceps for evaluation of celiac disease. Procedure Code(s): --- Professional --- 33216, Esophagogastroduodenoscopy, flexible, transoral; with biopsy, single or multiple Diagnosis Code(s): --- Professional --- D50.9, Iron deficiency anemia, unspecified K92.1, Melena (includes Hematochezia) CPT copyright 2020 [employer]. All rights reserved. The codes documented in this report are preliminary and upon remote medical coder reviewmay be revised to meet current compliance requirements. Sanjuana Mccormick MD 09/22/2024 8:50:17 AM This report has been signed electronically.Sanjuana Mccormick MD Number of Addenda: 0 Note Initiated On: 09/22/2024 8:34 AM Scope In: Scope Out: Endoscopy Department at [facility] - [address] [place] [phone] IMPRESSION: - Normal esophagus. - Normal stomach. - Normal examined duodenum. Biopsied. Recommendation: - Await pathology results. Sanjuana Mccormick MD GI~PROCEDURE ORDERABLES Final Result * Tissue exam (09/22/2024 8:45 AM EST) Final Diagnosis A. Duodenum, biopsies: Benign duodenal mucosa with no specific pathologic change. No villous blunting or increased intraepithelial lymphocytes identified. B. Appendix, polyp: Tubular adenoma. 09/23/2024 12:48 PM [facility] Gross Description A. Small Intestine, Duodenum, biopsies: Labeled biopsies duodenum . Received in formalin are four soft, velvety, [place]-red tissue fragments ranging from 0.2 cm to 0.35 cm in greatest diameter, which are wrapped in paper and submitted in toto in one cassette, four pieces, multiple levels. B. Colon, appendix polyp x1: Labeled appendix colon . Received in formalin is a soft, [place], thin, 0.2 cm in greatest diameter tissue fragment with scant attached fecal/food debris, which is wrapped in paper and submitted in toto in one cassette, one piece, multiple levels. TS 09/23/2024 12:48 PM [facility] Disclaimer Unless otherwise specified, all tissue is 10% NB formalin fixed and paraffin embedded. 09/23/2024 12:48 PM [facility] Tissue Duodenal structure / Unknown 09/22/2024 8:45 AM EST 09/22/2024 10:27 AM EST Tissue specimen (specimen) (Colon) 09/22/2024 8:59 AM EST 09/22/2024 10:27 AM EST us Sanjuana Mccormick MD LAB PATHOLOGY ORDERABLES Final Result [facility] [address] [place] [address], * ECG 12 lead (09/20/2024 9:23 AM EST) Ventricular Rate ECG 61 BPM [facility] Atrial Rate 61 BPM [facility] QRS Duration 64 ms [facility] Q-T Interval 438 ms GEMUSE QTc 440 ms GEMUSE R [place] 1 degrees GEMUSE T [place] 60 degrees GEMUSE ECG Interpretation Normal sinus rhythm Normal ECG When compared with ECG of 20-DEC-2020 07:24, QRS duration has decreased ST no longer depressed in Inferior leads Nonspecific T wave abnormality, improved in Lateral leads Confirmed by Evangelist AGUIAR JOHN ([id number]) on 09/20/2024 4:48:56 PM [facility] 09/20/2024 9:23 AM EST 09/20/2024 4:48 PM EST Dania Hamm NP ECG ORDERABLES Final Result [facility] * Vascular US duplex carotid bilateral (09/19/2024 11:35 AM EST) Left CCA dist roa 22 cm/s [facility] Left CCA dist sys 74 cm/s [facility] LEFT COMMON CAROTID ARTERY MID D 24 cm/s [facility] LEFT COMMON CAROTID ARTERY MID S 74 cm/s [facility] Left CCA prox roa 29 cm/s [facility] Left CCA prox sys 102 cm/s [facility] LEFT EXTERNAL CAROTID ARTERY D 12 cm/s [facility] Left ECA sys 61 cm/s [facility] Left ICA/CCA sys 1.90 no units [facility] Left ICA dist roa 60 cm/s [facility] Left ICA dist sys 141 cm/s [facility] Left ICA mid roa 32 cm/s [facility] Left ICA mid sys 69 cm/s [facility] Left ICA prox roa 27 cm/s [facility] Left ICA prox sys 70 cm/s [facility] Left vertebral sys 44 cm/s [facility] Right CCA dist roa 17 cm/s [facility] Right cca dist sys 83 cm/s [facility] RIGHT COMMON CAROTID ARTERY MID D 19 cm/s [facility] RIGHT COMMON CAROTID ARTERY MID S 81 cm/s CV [facility] LAB Right CCA prox roa 15 cm/s [facility] Right CCA prox sys 61 cm/s [facility] RIGHT EXTERNAL CAROTID ARTERY D 9 cm/s [facility] Right eca sys 53 cm/s [facility] Right ICA/CCA sys 1.30 no units [facility] Right ICA dist roa 35 cm/s [facility] Right ICA dist sys 78 cm/s [facility] Right ICA mid roa 45 cm/s [facility] Right ICA mid sys 105 cm/s [facility] Right ICA prox roa 18 cm/s [facility] Right ICA prox sys 50 cm/s [facility] Right vertebral sys 78 cm/s [facility] Left Prox Subclavian PSV 115 cm/s [facility] Right Prox Subclavian PSV 123 cm/s [facility] Left arm BP 106 mmHg [facility] Anatomical Region Laterality Modality Vascular, Abdomen Ultrasound Narrative 09/19/2024 8:08 PM EST ?Right ICA: There is mild heterogeneous plaque. ?Left ICA: There is mild heterogeneous plaque. RIGHT. 1. ??There is atherosclerotic plaque in the carotid system as noted above. 2. ??There is less than 50% stenosis in the internal carotid artery based on Doppler velocity. 3. ??The subclavian artery has normal Doppler flow pattern. 4. ??Vertebral artery has normal antegrade flow. LEFT. 1. ??There is atherosclerotic plaque in the carotid system as noted above. 2. ??There is less than 50% stenosis in the internal carotid artery based on Doppler velocity. 3. ??The subclavian artery has normal Doppler flow pattern. 4. ??Vertebral artery has normal antegrade flow. Consider repeat carotid duplex in 3 years. ??Correlate clinically. Right Carotid The CCA has mild heterogeneous plaque. The ICA has mild heterogeneous plaque. The ECA has minimal heterogeneous plaque. Vertebral flow is antegrade. Left Carotid There is evidence of intimal thickening in the CCA. The ICA is tortuous. The ICA has mild heterogeneous plaque. The ECA has minimal heterogeneous plaque. Vertebral flow is antegrade. Unable to obtain left BP due to cancer Director Supply Details A childs scale, color and doppler analysis ultrasound was performed. During the study longitudinal and transverse views were obtained. Continuous wave doppler and pulsed wave doppler was performed. Overall the study quality was adequate. us Edgar Mcelroy MD CV VASCULAR PROCEDURES Final Re sult * [facility] DEXA AXIAL SKELETON (12/18/2022 7:48 AM EDT) Anatomical Region Laterality Modality Mammography 12/17/2022 1:11 PM EDT Narrative 12/18/2022 7:48 AM EDT [facility] Diagnostic Imaging Department [address] [place] [id number] Patient: ??FRIAD GARCIA ?/Age/Sex: 1955 - 67 - F Unit#: ??[id number] ? Location/Status: ??SPDIMAM/REG CLI ? Mnemonic/Ordering Site: ??MAMDEXAAX/SPMAM Ordering Physician: ??HAYLEE VAIL REFERENCE LIBRARIAN [facility] Dexa Axial Skeleton - 12/17/22 - 5698 HISTORY: ??The patient is a 67-year-old postmenopausal female with clinical concern for metabolic bone disease. FINDINGS: ??Dual energy x-ray absorptiometry of the lumbar spine and femurs is performed. The mean bone mineral density at L1-2 is 0.963 gm/cm2 which is 83% of that of young normals and 95% of that of age matched controls. This yields a T- score of -1.7 and a Z-score of -0.4 which is diagnostic of osteopenia. The mean bone mineral density of the femurs bilaterally is 0.717 gm/cm2 which is 71% of that of young normals and 82% of that of age matched controls. ??This yields a T-score of -2.3 and a Z-score of -1.3 which is diagnostic of osteopenia. IMPRESSION: 1. Osteopenia. 2. FRAX analysis yields a 10-year probability of major osteoporotic fracture of 26.4% and a 10-year probability of hip fracture of 7.3%. Code 01936 Dictating Physician: ??JASMINA ROBB MD Electronically Signed by: ??JASMINA ROBB MD Dic Date/Time: ??12/18/22746 Sign date/Time: ??12/18/2248 Procedure Note Jasmina Robb MD - 10/23/2023 [facility] Diagnostic Imaging Department [address] [place] [address] Patient: PHUONGCALIXTOFRIDA Thomas./Age/Sex: 1955 - 67 - F Unit#: [id number] Location/Status: [facility]/REG CLI [facility] Ordering Physician: HAYLEE VAIL REFERENCE LIBRARIAN [facility] Dexa Axial Skeleton - 12/17/22 - 6 HISTORY: The patient is a 67-year-old postmenopausal female withclinical concern for metabolic bone disease. FINDINGS: Dual energy x-ray absorptiometry of the lumbar spine and femursis performed. The mean bone mineral density at L1-2 is 0.963 gm/cm2 which is83% of that of young normals and 95% of that of age matched controls. This yieldsa T- score of -1.7 and a Z-score of -0.4 which is diagnostic of osteopenia. The mean bone mineral density of the femurs bilaterally is 0.717 gm/kt3pclxh is 71% of that of young normals and 82% of that of age matched controls.This yields a T-score of -2.3 and a Z-score of -1.3 which is diagnostic of osteopenia. IMPRESSION: 1. Osteopenia. 2. FRAX analysis yields a 10-year probability of major osteoporoticfracture of 26.4% and a 10-year probability of hip fracture of 7.3%. 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 Health Care Decision (hx) 01/19/2019 AD SUAREZ DIRECTIVE Health Care Decision (hx) 01/19/2019 AD SUAREZ DIRECTIVE Health Care Decision (hx) 01/19/2019 AD SUAREZ DIRECTIVE Health Care Decision (hx) 01/19/2019 AD SUAREZ DIRECTIVE Health Care Decision (hx) 01/19/2019 AD SUAREZ DIRECTIVE Health Care Decision (hx) 01/19/2019 AD SUAREZ DIRECTIVE Health Care Decision (hx) 01/19/2019 AD SUAREZ DIRECTIVE Health Care Decision (hx) 01/19/2019 AD SUAREZ DIRECTIVE Health Care Decision (hx) 01/19/2019 AD SUAREZ DIRECTIVE Health Care Decision (hx) 01/19/2019 AD SUAREZ DIRECTIVE Health Care Decision (hx) 01/19/2019 AD SUAREZ DIRECTIVE Health Care Decision (hx) 01/19/2019 AD SUAREZ DIRECTIVE Health Care Decision (hx) 01/19/2019 AD SUAREZ DIRECTIVE Health Care Decision (hx) 01/19/2019 AD SUAREZ DIRECTIVE Health Care Decision (hx) 01/19/2019 AD SUAREZ DIRECTIVE Health Care Decision (hx) 01/19/2019 AD SUAREZ DIRECTIVE Care Teams Hand Reamer Relationship Specialty Start Date End Date Haylee Vail NP [address] [place] [address] PCP - General Internal Medicine 04/29/16
--- OUTSIDE RECORDS SUMMARY | 2024-11-03 14:38 | XMS_ITS | Encounter Summary ---
Author Organization [facility] Address [address] [place] [address] Care Team Providers Care Storm Window Installer Name Role Phone Hilary Vail NP Primary Care Provider [phone] Reason for Visit * Reason Comments Consult * Consultation (Routine) - Authorized Specialty Diagnoses / Procedures Referred By Contac t Referred To Contact Hematology and Oncology Diagnoses Anemia, unspecified type Lupe Prajapati NP [address] [place] [address] Phone: tel: fax: [facility] Hematology Oncology [address] [place] [phone] Phone: tel: fax: Referral ID Status Reason Start Date Expiration Date Visits Requested Visits Authorized [id number] Authorized Specialty Services Required 10/04/2024 10/04/2025 1 1 Encounter Details Date Type Department Care Team (Late st Contact Info) Description 11/03/2024 1:00 PM EST Office Visit [facility] Hematology Oncology [address] [place] [phone] Carolann Castro MD [address] [place] [address] Anemia, unspecified type Social History Tobacco Use [...] 11/03/2024 1:00 PM ES T Respiratory Rate - - Oxygen Saturation 99% 11/03/2024 1:00 PM EST Inhaled Oxygen Concentration - - Weight 50.8 kg (112 lb) 11/03/2024 1:00 PM EST Height 157.5 cm (5' 2 ) 11/03/2024 1:00 PM EST Body Mass Index 20.49 11/03/2024 1:00 PM EST documented in this encounter Progress Notes * Carolann Castro MD - 11/03/2024 1:00 PM EST ONC CANCER INITIAL VISIT Dear Lupe, Thank you very much for referring this patient for consultation. HPI: Patient is a very pleasant 69-year-old female, who has multiple medical problem has chronic anemia which has been gradually getting worse so patient referred to me for further hematologicalevaluation, patient denies any prior history of significant hematological disorder or any significant family history of hematological disorder, patient has been feeling exhausted and fatigued, her recent hemoglobin is less than 8 g, patient also has history of rheumatoid arthritis as well as chronic renal insufficiency ROS: GENERAL: No significant anorexia but may have lost some weight, has been feeling exhausted and fatigued HEENT no headache no visual symptom but get dizzy and lightheaded sometimes NECK: No lumps, goiter, pain or significant neck swelling RESPIRATORY: No cough or shortness of breath but gets short of breath very easily CARDIOVASCULAR: No chest pain. GI: No abdominal discomfort, blood in stools or black stools denies any significant symptom MUSCULOSKELETAL: Has chronic arthritic pain in her joints HEMATOLOGY/LYMPHOLOGY No prolonged bleeding, easy bruisability or swollen nodes Other Systems review is non contributory PAST MEDICAL HISTORY: Hypertension Dyslipidemia Coronary artery disease Peripheral vascular disease Aortic valve disease Breast cancer Colitis TIA Rheumatoid arthritis Anxiety/depression Chronic migraine headache Anemia PAST SURGICAL HISTORY: Past Surgical History: Procedure [...] MASTECTOMY TONSILLECTOMY PROCEDURE: HISTORICAL TONSILLECTOMY SOCIAL HISTORY: She quit smoking many years ago She denies alcohol use and abuse She takes marijuana Gummies sometime She is , lives with her FAMILY HISTORY: Noncontributory MEDICATIONS: Current Outpatient Medications: amitriptyline (ELAVIL) 10 mg tablet, Take 1 tablet (10 mg total) by mouth. at bedtime., Disp: , Rfl: aspirin 81 mg chewable tablet, Chew 1 tablet (81 mg total) 1 (one) time each day., Disp: , Rfl: carvediloL (COREG) 25 mg tablet, Take 12.5 mg by mouth 2 (two) times a day with meals., Disp: , Rfl: clindamycin (CLEOCIN) 300 mg capsule, Take 2 capsules (600 mg total) by mouth See administration instructions. Take 2 caps 1hr before dental appts, Disp: , Rfl: dicyclomine (BENTYL) 20 mg tablet, Take 1 tablet (20 mg total) by mouth 4 (four) times a day if needed (abdominal pain)., Disp: 120 each, Rfl: 11 ferrous sulfate 325 mg (65 mg elemental iron) tablet, Take 1 tablet (325 mg total) by mouth 2 (two)times a day., Disp: , Rfl: FLUoxetine (PROzac) 20 mg capsule, Take 1 capsule (20 mg total) by mouth 1 (one) time each day., Disp: , Rfl: leflunomide (ARAVA) 20 mg tablet, Take 1 tablet (20 mg total) by mouth 1 (one) time each day., Disp: , Rfl: multivitamin with minerals tablet, Take by mouth., Disp: , Rfl: omeprazole OTC (PriLOSEC OTC) 20 mg EC tablet, Take 1 tablet (20 mg total) by mouth 2 (two) times aday. Do not crush, chew, or split., Disp: 180 tablet, Rfl: 3 ondansetron (ZOFRAN) 4 mg tablet, Take 1 tablet (4 mg total) by mouth every 8 (eight) hours if needed for nausea or vomiting., Disp: 30 tablet, Rfl: 2 rosuvastatin (CRESTOR) 20 mg tablet, Take 1 tablet (20 mg total) by mouth 1 (one) time each day., Disp: , Rfl: amLODIPine (NORVASC) 2.5 mg tablet, Take 1 tablet (2.5 mg total) by mouth 1 (one) time each day., Disp: 90 each, Rfl: 1 Allergies Allergen Reactions Bacitracin Itching Daypro [Oxaprozin] Hives and Rash Neomycin-Polymyxin B Gu Penicillins Hives, Itching and Rash Sumatriptan Hives and Rash Tamoxifen Flushing and Hives Presyncope, Abdominal pain PHYSICAL EXAM: Visit Vitals BP 131/74 (BP Location: Left arm, Patient Position: Sitting, BP Cuff Size: Adult) Pulse 81 Temp 36.9 ??C (98.5 ??F) (Temporal) Ht 1.575 m (62 ) Wt 50.8 kg (112 lb) SpO2 99% BMI 20.49 kg/m?? OB Status Postmenopausal Smoking Status Former BSA 1.49 m?? ECOG 1 APPEARANCE: Alert and oriented in no acute distress though looks very frail EYES: nonicteric sclera pink conjunctiva ORAL CAVITY: No erythema or exudates NECK: Neck supple, no cervical and supraclavicular adenopathy, HEART: normal S1 and S2 with systolic murmur LUNG: Distant breath sound otherwise clear bilaterally LYMPH NODES: No palpable superficial adenopathy ABDOMEN: soft, nontender and no organomegaly appreciated. EXTREMITIES: Arthritic changes especially on the small joints of the hand LABS: WBC 8.7, hemoglobin 7.7 g, hematocrit 24.9%, MCV 90 and platelet count 203 BUN 13 creatinine 1.4 Normal B12 folate and iron studies previously ASSESSMENT 1. Anemia, unspecified type Patient is a 69-year-old female, who has moderate to severe normocytic anemia of unclear etiology, possible differential diagnosis include 1. Anemia of chronic disease 2. Anemia secondary to myeloid disease/plasma cell disease of the bone marrow 3. Anemia secondary renal insufficiency 4. Anemia secondary to nutritional deficiencies, hemoglobin disease/hemolysis (unlikely) I explained patient and her she may have anemia of 1 of these etiology or multiple of theseetiology, I told patient I would like to do some workup including reviewing peripheral smear, checking serum immunofixation test, reticulocyte count, erythropoietin level, haptoglobin, protein electrophoresis, iron studies, B12, folate etc. I will see her back after this workup for any further intervention PLAN: Above labs today, return to office in 2 to 3 weeks for further intervention, I will keep you posted Carolann Castro MD cc: Lupe Prajapati* documented in this encounter Plan of Treatment Upcoming Encounters Date Type Department Care Team (Late st Contact Info) Description 11/23/2024 1:15 PM EST Office Visit [facility] Hematology Oncology [address] [place] [phone] Carolann Castro MD [address] [place] [address] 11/25/2024 10:40 AM EST Office Visit Gastroenterology - [address] [phone] Chintan Kilgore PA [address] [place] [address] 12/06/2024 7:30 AM EDT Clinical Support Gastroenterology - [address] [phone] 12/21/2024 2:10 PM EDT Office Visit Gastroenterology - [address] [phone] Chintan Kilgore PA [address] [address] Pending Results Name Type Priority Associated Diagnoses Date /Time Protein electrophoresis, serum Lab Routine Anemia, unspecified type 11/03/2024 1:25 PM EST Erythropoietin Lab Routine Anemia, unspecified type 11/03/2024 1:25 PM EST Scheduled Orders Name Type Priority Associated Diagnoses Orde r Schedule Protein electrophoresis, serum Lab Routine Anemia, unspecified type 1 Occurrences starting 11/03/2024 until 11/03/2025 Erythropoietin Lab Routine Anemia, unspecified type 1 Occurrences starting 11/03/2024 until 11/03/2025 documented as of this encounter Results * (ABNORMAL) Comprehensive metabolic panel (11/03/2024 1:25 PM EST) Sodium 136 133 - 145 mmol/L LAB CHEMISTRY METHOD 11/03/2024 2:15 PM [facility] Potassium 3.9 3.5 - 5.5 mmol/L LAB CHEMISTRY METHOD 11/03/2024 2:15 PM [facility] Chloride 108 96 - 110 mmol/L LAB CHEMISTRY METHOD 11/03/2024 2:15 PM [facility] CO2 26 21 - 32 mmol/L LAB CHEMISTRY METHOD 11/03/2024 2:15 PM [facility] Anion Gap 2(L) 3 - 11 LAB CHEMISTRY METHOD 11/03/2024 2:15 PM [facility] Glucose 91 70 - 100 mg/dL LAB CHEMISTRY METHOD 11/03/2024 2:15 PM [facility] BUN 27(H) 5 - 25 mg/dL LAB CHEMISTRY METHOD 11/03/2024 2:15 PM [facility] Creatinine 1.52(H) 0.50 - 1.10 mg/dL LAB CHEMISTRY METHOD 11/03/2024 2:15 PM [facility] eGFR 37(L) >=60 mL/min/1. 73m2 LAB CHEMISTRY METHOD 11/03/2024 2:15 PM [facility] Comment:Calculation based on the??Chronic Kidney Disease Epidemiology Collaboration (CKD-EPI) equation refit??without adjustment for race. BUN/Creatinine Ratio 17.8 LAB CHEMISTRY METHOD 11/03/2024 2:15 PM [facility] Calcium 9.7 8.5 - 10.5 mg/dL LAB CHEMISTRY METHOD 11/03/2024 2:15 PM [facility] AST (SGOT) 23 10 - 42 unit/L LAB CHEMISTRY METHOD 11/03/2024 2:15 PM [facility] ALT (SGPT) 11 10 - 60 unit/L LAB CHEMISTRY METHOD 11/03/2024 2:15 PM [facility] Alkaline Phosphatase 186(H) 42 - 121 unit/L LAB CHEMISTRY METHOD 11/03/2024 2:15 PM [facility] Total Protein 6.7 6.0 - 8.0 g/dL LAB CHEMISTRY METHOD 11/03/2024 2:15 PM [facility] Albumin 3.0(L) 3.2 - 5.0 g/dL LAB CHEMISTRY METHOD 11/03/2024 2:15 PM [facility] Total Bilirubin 0.4 0.0 - 1.4 mg/dL LAB CHEMISTRY METHOD 11/03/2024 2:15 PM [facility] Blood Venous blood specimen / Unknown Venipuncture / Unknown 11/03/2024 1:25 PM EST 11/03/2024 1:37 PM EST us Carolann Castro MD LAB BLOOD ORDERABLES Final R esult [facility] [address] [place] [address], * (ABNORMAL) Haptoglobin (11/03/2024 1:25 PM EST) Haptoglobin 223(H) 16 - 200 mg/dL LAB CHEMISTRY METHOD 11/03/2024 2:14 PM EST [facility] Blood Venous blood specimen / Unknown Venipuncture / Unknown 11/03/2024 1:25 PM EST 11/03/2024 1:37 PM EST Carolann Castro MD LAB BLOOD ORDERABLES Final R esult [facility] [address] [place] [address], [place] [phone] * (ABNORMAL) Reticulocyte count (11/03/2024 1:25 PM EST) Pathologist [facility] Retic Ct Abs 0.060 0.030 - 0.090 M/mcL LAB HEMETOLOGY METHOD 11/03/2024 1:52 PM EST [facility] Retic Ct Pct 2.0(H) 0.7 - 1.7 % LAB HEMETOLOGY METHOD 11/03/2024 1:52 PM EST [facility] Immature Retic Fract 14.7 2.3 - 15.9 % LAB HEMETOLOGY METHOD 11/03/2024 1:52 PM EST [facility] Reticulocyte Hemoglobin 32.2 >29.0 pcg LAB HEMETOLOGY METHOD 11/03/2024 1:52 PM EST [facility] Blood Venous blood specimen / Unknown Venipuncture / Unknown 11/03/2024 1:25 PM EST 11/03/2024 1:37 PM EST Carolann Castro MD LAB BLOOD ORDERABLES Final R esult [facility] [address] [place] [address], [place] [phone] * (ABNORMAL) Iron and TIBC (11/03/2024 1:25 PM EST) [facility] Iron 114 40 - 150 mcg/dL LAB CHEMISTRY METHOD 11/03/2024 2:14 PM EST [facility] TIBC 150(L) 250 - 450 mcg/dL LAB CHEMISTRY METHOD 11/03/2024 2:14 PM EST [facility] Iron Saturation 76(H) 15 - 50 % LAB CHEMISTRY METHOD 11/03/2024 2:14 PM EST [facility] Blood Venous blood specimen / Unknown Venipuncture / Unknown 11/03/2024 1:25 PM EST 11/03/2024 1:37 PM EST us Carolann Castro MD LAB BLOOD ORDERABLES Final R esult Performing Organization Address City/[facility]/ZIP Co de Phone Number [facility] [address] [place] [address], [place] [phone] * (ABNORMAL) Ferritin (11/03/2024 1:25 PM EST) [facility] Ferritin 856(H) 8 - 252 ng/mL LAB CHEMISTRY METHOD 11/03/2024 2:36 PM EST [facility] Blood Venous blood specimen / Unknown Venipuncture / Unknown 11/03/2024 1:25 PM EST 11/03/2024 1:37 PM EST Carolann Castro MD LAB BLOOD ORDERABLES Final R esult [facility] [address] [place] [address], [place] [phone] * (ABNORMAL) Vitamin B12 and folate (11/03/2024 1:25 PM EST) [facility] Vitamin B-12 1,543(H) 250 - 900 pcg/mL LAB CHEMISTRY METHOD 11/03/2024 2:36 PM EST [facility] Folate >20.0(H) 2.8 - 17.0 ng/ml LAB CHEMISTRY METHOD 11/03/2024 2:36 PM EST [facility] Blood Venous blood specimen / Unknown Venipuncture / Unknown 11/03/2024 1:25 PM EST 11/03/2024 1:37 PM EST us Carolann Castro MD LAB BLOOD ORDERABLES Final R esult [facility] [address] [place] [address], documented in this encounter Visit Diagnoses Diagnosis Anemia, unspecified type documented in this encounter Discontinued Medications Medication Sig Discontinue Reason Start Date End Da te amLODIPine (NORVASC) 2.5 mg tabletIndications:Primary hypertension Take 1 tablet (2.5 mg total) by mouth 1 (one) time each day. 09/20/2024 11/03/2024 documented as of this encounter Orders Outpatient Referral Count Last Ordered Date Fir st Ordered Date AMB REFERRAL TO HEMATOLOGY / ONCOLOGY 1 documented in this encounter Additional Health Concerns Infection Onset Date Last Indicated Resolved Time Gastrointestinal Rule-Out 11/02/2024 11/02/2024 documented as of this encounter Care Teams Storm Window Installer Relationship Specialty Start Date End Date Hilary Vail NP [address] [facility] [place] [address] PCP - General Internal Medicine 04/29/16 documented as of this encounter
[2024-11-03 14:43] VITALS: BP 130/78; BMI 20.5
== END 2024-11-03 15:13 | disposition home or self-care (01) ==
LOC: HO.HKAS 14:30
PROVIDERS: Visit Provider Internal Medicine Nephrology
DX: N18.31 Chronic kidney disease, stage 3a (principal); I10 Essential (primary) hypertension
CPT/HCPCS: 99214

== ENCOUNTER → 2024-11-03 14:30 | Outpatient (BNVA) | payer MEDICARE, SELFPAY | PROVIDERS: Visit Provider Internal Medicine Nephrology | DX: I12.9 Hypertensive chronic kidney disease with stage 1 through stage 4 chronic kidney disease, or unspecified chronic kidney disease (principal); N18.31 Chronic kidney disease, stage 3a | CPT/HCPCS: 99212 ==

== ENCOUNTER 2025-03-09 12:04 | Outpatient (AMB) | payer MEDICARE, SELFPAY ==
--- NOTE | 2025-03-09 12:18 | MHC.OFFVIS ---
Vital Signs 03/09/25 12:19 Height 5 ft 2 in Weight 119 lb BMI 21.8 BP 134/82 Blood Pressure Location Rt brachial Position Sitting Intake Visit Reasons: follow up Migraines Intake Note: patient following up on new medication trial amitriptyline/ubrogepant Allergies oxaprozin Allergy (Verified 03/09/25 12:21) Unknown Penicillins Allergy (Verified 03/09/25 12:21) Unknown sumatriptan Allergy (Verified 03/09/25 12:21) Unknown tamoxifen Allergy (Verified 03/09/25 12:21) Unknown HPI Comments Details: 69y/o female comes for further follow up of headaches.she is doing better with amitriptyline 10mg qhs - 1 every 2 weeks - she used to have headaches almost everyday. Tylenol helps her . The headaches are milder. Ubrelvy was too expensive.she still has visual aura - sometimes without the headaches. History from initial visit- she has had headaches all her life but became more noticeable in her 30s. she was on fioricet , codiene at that time, later she was tried on sumatriptan, she also self treated with excedrin migraine.. she was seeing Dr. Padgett for a few years. she has headaches with visual aura but sometimes visual aura without headaches. The visual aura starts with eye pressure and sees bright squiggly lines and can last 1-3days per week .This happens 1-3 days a week Sometimes she has headaches 2 hrs after she has visual aura -unilateral temporal parietal pounding pressure with nausea , occasional vomiting, photophobia, phonophobia, dizziness. These episodes can last 1-3 days.These episodes of migraines with aura happens 1-3 days a month. Apart from these she also has mild daily headaches- usually occipital , neck and side , has nausea sometimes. No light or noise sensitivity. she does not recall any fh/o headaches Her son has migraines with visual aura. [facility] Medical History Chronic daily headache Migraine headache with aura Ocular migraine Hypertension Rheumatoid arthritis Chronic kidney disease, stage 3b Surgical History S/P AVR S/P CABG (coronary artery bypass graft) Family History Mother Hypertension Social History Alcohol intake: never Patient Tobacco Use Status: Never used Tobacco Physical Exam Vital Signs: Last Vital Signs BP 134/82 03/09/25 12:19 BMI result Body Mass Index 21.8 Assessment & Plan Assessment & Plan (1) Ocular migraine: Code(s): G43.109 - Migraine with aura, not intractable, without status migrainosus Category: Medical (2) Migraine headache with aura: Code(s): G43.109 - Migraine with aura, not intractable, without status migrainosus Category: Medical Qualifiers: Status migrainosus presence: without status migrainosus Intractability: not intractable Qualified Code(s): G43.109 - Migraine with aura, not intractable, without status migrainosus (3) Chronic daily headache: Code(s): R51.9 - Headache, unspecified Category: Medical Plan Increase amitriptyline 10 mg 2 tabs qhs for prevention of migraines and aura - suggested to maintain a migraine dairy to assess response Add [id number] qhs for prophylaxis Tylenol or fioricet as needed for headaches 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 Medications: Changed From amitriptyline 10 mg PO BEDTIME 30 tabs 6RF To amitriptyline 20 mg (2 x 10 mg) PO BEDTIME 60 tabs 6RF Coding Level of Care Code Est Pt Level 4 (09787) Complex EM visit Add On G2211 Diagnoses Ocular migraine G43.109 Migraine with aura and without status migrainosus, not intractable G43.109 Status migrainosus presence: without status migrainosus Intractability: not intractable Chronic daily headache R51.9
[2025-03-09 12:19] VITALS: BP 134/82; BMI 21.8
== END 2025-03-09 12:57 | disposition home or self-care (01) ==
LOC: HO.HSMS 12:05
PROVIDERS: Visit Provider Psychiatry & Neurology Neurology
DX: G43.109 Migraine with aura, not intractable, without status migrainosus (principal); R51.9 Headache, unspecified
CPT/HCPCS: 99214; G2211

== ENCOUNTER → 2025-03-09 12:04 | Outpatient (BNVA) | payer MEDICARE, SELFPAY | PROVIDERS: Visit Provider Psychiatry & Neurology Neurology | DX: G43.E09 Chronic migraine with aura, not intractable, without status migrainosus (principal) | CPT/HCPCS: 99212 ==

== ENCOUNTER 2025-05-25 14:47 | Outpatient (AMB) | payer MEDICARE, SELFPAY ==
--- OUTSIDE RECORDS SUMMARY | 2025-05-23 11:00 | XMS_ITS | Encounter Summary ---
Author Organization [facility] Address [address] [place] [address] Care Team Providers Care Still Runner Name Role Phone Hilary Vail NP Primary Care Provider [phone] Reason for Visit * Reason Comments Follow-up Encounter Details Date Type Department Care Team (Late st Contact Info) Description 05/23/2025 11:00 AM EDT Office Visit [facility] Hematology Oncology [address] [place] [phone] Carolann Castro MD [address] [place] [address] Anemia due to stage 3b chronic kidney disease (CMS/HCC V24, CMS/HCC V28) (Primary Dx) Social History Tobacco Use Types Packs/Day Years Used Date Smoking Tobacco: Former Smokeless Tobacco: Never Alcohol Use Standard Drinks/Week Comments No 0 (1 standard drink = 0.6 oz pur e alcohol) Interpersonal Safety Answer Date Record ed Physical Abuse 09/22/2024 Verbal Abuse 09/22/2024 Comments No Sex and Gender Information Value Date Recorded Sex Assigned at Female 12/05/2024 3:28 PM EDT Legal Sex Female 5:17 PM EST Gender Identity Female 12/05/2024 3:28 PM EDT Sexual Orientation Straight 12/05/2024 3: 28 PM EDT documented as of this encounter Last Filed Vital Signs Vital Sign Reading Time Taken Comments Blood Pressure 125/70 05/23/2025 10:48 AM EDT Pulse 55 05/23/2025 10:48 AM EDT Temperature 36.4 C (97.6 F) 05/23/2025 10:48 AM EDT Respiratory Rate - - Oxygen Saturation 100% 05/23/2025 10:48 AM EDT Inhaled Oxygen Concentration - - Weight 57.2 kg (126 lb) 05/23/2025 10:48 AM EDT Height - - Body Mass Index 23.81 01/26/2025 10:19 AM EDT documented in this encounter Progress Notes * Carolann Castro MD - 05/23/2025 11:00 AM EDT ONC CANCER FOLLOW UP CHIEF COMPLAINT: Follow-up IDENTIFIER:Frida Garcia is a 69 y.o. female. HPI: Patient is a 61-year-old woman who has moderate renal deficiency, patient had significant anemia, secondary to renal insufficiency so patient started on erythropoietin, tolerating well but she did not needed every 2-week, last hemoglobin is more than 11 g ROS: Patient has been much more energetic Denies any obvious blood loss Patient denies any significant GI symptom PAST MEDICAL HISTORY: Patient Active Problem List Diagnosis Anemia Anxiety Aortic atherosclerosis ([facility] V24) Aortic mural thrombus ([facility] V24, [facility] V28) Aortitis syndrome ([facility] V24, [facility] V28) Bilateral carotid artery stenosis CAD (coronary artery disease) Colitis Congenital Q-T prolongation on ECG Depression Primary hypertension Heart murmur, systolic Mixed hyperlipidemia Insomnia Migraine Non-cardiac chest pain Nonrheumatic aortic (valve) stenosis Nonrheumatic aortic valve insufficiency Osteoarthritis Paroxysmal atrial fibrillation ([facility] V24, [facility] V28) Rheumatoid arthritis ([facility] V24, [facility] V28) Snoring SOB (shortness of breath) Stage 3a chronic kidney disease ([facility] V24, [facility] V28[facility] Subclavian artery stenosis ([facility] V24) TIA (transient ischemic attack) Pre-syncope Palpitations Status post coronary artery bypass graft History of aortic valve replacement Mild mitral regurgitation Chronic fatigue PAC (premature atrial contraction) Past Medical History: Diagnosis Date Abnormal glucose DX:Abnormal glucose Aching headache Acute kidney injury superimposed on chronic kidney disease ([facility] V24) DX:Acute kidney injury superimposed on chronic kidney disease (HCC) Anemia 08/17/2019 DX:Anemia Anxiety 08/17/2019 DX:Anxiety Aortic atherosclerosis ([facility] V24) 08/17/2019 DX:Aortic atherosclerosis (HCC) Aortic mural thrombus ([facility] V24, [facility] V28) 08/17/2019 DX:Aortic mural thrombus (HCC) Bilateral carotid artery stenosis 10/18/2018 DX:Bilateral carotid artery stenosis Body aches DX:Body aches Cellulitis DX:Cellulitis Chronic anemia DX:Chronic anemia CKD (chronic kidney disease) stage 3, GFR 30-59 ml/min ([facility] V24, [facility] V28) 08/17/2019 DX:CKD (chronic kidney disease) stage 3, GFR 30-59 ml/min ([facility]) Class 1 obesity DX:Class 1 [...] COMMENT: Thoracic, & Lumbar Spine Rheumatoid arthritis ([facility] V24, [facility] V28) 08/17/2019 DX:Rheumatoid arthritis (HCC) SOB (shortness of breath) DX:SOB (shortness of breath) Subclavian artery stenosis ([facility] V24) 08/17/2019 DX:Subclavian artery stenosis ([facility]); COMMENT: Right TIA (transient ischemic attack) 08/17/2019 DX:TIA (transient ischemic attack) Weight loss DX:Weight loss SOCIAL HISTORY: Social History Tobacco Use Smoking status: Former Smokeless tobacco: Never Substance Use Topics Alcohol use: No FAMILY HISTORY: Family History Problem Relation Name Age of Onset Other (Other: car accident) Father Breast cancer Mother Uterine Cancer, CVA in her 60's Hypertension Mother Stroke Mother Family Status Relation Name Status Father (Not Specified) Mother (Not Specified) No partnership data on file Current Outpatient Medications: amitriptyline (ELAVIL) 10 mg tablet, Take 2.5 mg by mouth. at bedtime., Disp: , Rfl: amLODIPine (NORVASC) 2.5 mg tablet, Take 1 tablet (2.5 mg total) by mouth 1 (one) time each day., Disp: 90 each, Rfl: 1 aspirin 81 mg chewable tablet, Chew 1 tablet (81 mg total) 1 (one) time each day., Disp: , Rfl: budesonide DR (ENTOCORT EC) 3 mg 24 hr capsule, TAKE 3 CAPSULES (9 MG TOTAL) BY MOUTH EVERY DAY IN THE MORNING (Patient taking differently: 1 capsule (3 mg total) 1 (one) time each day.), Disp: 270 capsule, Rfl: 1 carvediloL (COREG) 25 mg tablet, Take 12.5 mg by mouth 2 (two) times a day with meals., Disp: , Rfl: clindamycin (CLEOCIN) 300 mg capsule, Take 2 capsules (600 mg total) by mouth See administration instructions. Take 2 caps 30-60 minutes prior to dental procedures., Disp: 2 capsule, Rfl: 5 dicyclomine (BENTYL) 20 mg tablet, Take 1 tablet (20 mg total) by mouth 4 (four) times a day if needed (abdominal pain)., Disp: 120 each, Rfl: 11 DULoxetine (CYMBALTA) [address] capsule, Take 1 capsule (30 mg total) by mouth 1 (one) time each day., Disp: , Rfl: FLUoxetine (PROzac) 20 mg capsule, Take 1 capsule (20 mg total) by mouth 1 (one) time each day., Disp: , Rfl: gabapentin (NEURONTIN) 100 mg capsule, , Disp: , Rfl: golimumab (SIMPONI ARIA IV), Infuse 50 mg into a venous catheter once every eight weeks., Disp: , Rfl: leflunomide (ARAVA) 20 mg [...] or split., Disp: 180 tablet, Rfl: 3 rosuvastatin (CRESTOR) 20 mg tablet, Take 1 tablet (20 mg total) by mouth 1 (one) time each day., Disp: , Rfl: Allergies Allergen Reactions Bacitracin Itching Daypro [Oxaprozin] Hives and Rash Neomycin-Polymyxin B Gu Penicillins Hives, Itching and Rash Sumatriptan Hives and Rash Tamoxifen Flushing and Hives Presyncope, Abdominal pain PHYSICAL EXAM: Visit Vitals BP 125/70 (BP Location: Left arm, Patient Position: Sitting, BP Cuff Size: Adult) Pulse 55 Temp 36.4 ??C (97.6 ??F) (Temporal) Wt 57.2 kg (126 lb) SpO2 100% BMI 23.81 kg/m?? OB Status Postmenopausal Smoking Status Former BSA 1.55 m?? ECOG 0 APPEARANCE: Alert and oriented in no acute distress EYES: nonicteric sclera pink conjunctiva ORAL CAVITY: No erythema or exudates NECK: Neck supple, no significant adenopathy, HEART: normal S1 and S2 LUNG: clear to auscultation bilaterally LYMPH NODES: No palpable superficial adenopathy ABDOMEN: soft, nontender and no organomegaly appreciated EXTREMITIES: No edema team [place] LABS: Hemoglobin 11.4 g Creatinine 1.82 IMPRESSION: 1. Anemia due to stage 3b chronic kidney disease ([facility] V24, [facility] V28) 69-year-old female who has stage III renal insufficiency, patient is anemia of renal sufficiency, patient has been on erythropoietin injection with a very good response. Patient and family about potential risk-benefit of intrapartum, since patient was admitted erythropoietin supplement/injection every 2 weeks, she can go every 4-week for erythropoietin injection PLAN: Return to office next year or as needed Carolann Castro MD documented in this encounter Plan of Treatment Upcoming Encounters Date Type Department Care Team (Late st Contact Info) Description 05/26/2025 1:00 PM EDT Appointment [facility] [address] [place] [phone] 05/30/2025 11:00 AM EDT Appointment [facility] Ultrasound [address] [place] [address] 07/24/2025 2:00 PM EST Office Visit [facility] [place] [address] [place] [address] Edgar Mcelroy MD [address] [place] [phone] 11/20/2025 9:30 AM EST Office Visit [facility] Hematology Oncology [address] [place] [phone] Carolann Castro MD [address] [place] [address] documented as of this encounter Visit Diagnoses Diagnosis Anemia due to stage 3b chronic kidney disease (CMS/HCC V24, CMS/HCC V28)- Primary documented in this encounter Care Teams Still Runner Relationship Specialty Start Date End Date Hilary Vail NP [address] [facility] [place] [address] PCP - General Internal Medicine 04/29/16 documented as of this encounter
--- NOTE | 2025-05-25 15:22 | HO.NEPHOV_ITS ---
Vital Signs 05/25/25 15:25 Height 5 ft 2 in Weight 126 lb BMI 23.0 BP 140/70 H Blood Pressure Location Lt brachial Position Sitting Intake Visit Reasons: 6mon follow-up w/labs-LVM Mail Service Coordinator Required: No Accompanied by: Spouse Allergies oxaprozin Allergy (Verified 05/25/25 15:25) Unknown Penicillins Allergy (Verified 05/25/25 15:25) Unknown sumatriptan Allergy (Verified 05/25/25 15:25) Unknown tamoxifen Allergy (Verified 05/25/25 15:25) Unknown HPI Comments Details: Frida in follow-up of her chronic kidney disease. She denies any night sweats, fever, fatigue, nausea vomiting or diarrhea. She feels tired. Her last serum creatinine is around 1.7 . She remains off Arava and is off prednsione. She has seen Dr Castro for her anemia of chronic disease and takes Procrit as needed. [facility] Medical History Chronic daily headache Migraine headache with aura Ocular migraine Hypertension Rheumatoid arthritis Chronic kidney disease, stage 3b Surgical History S/P AVR S/P CABG (coronary artery bypass graft) Family History Mother Hypertension Social History Alcohol intake: never Patient Tobacco Use Status: Never used Tobacco Review of Systems Const All systems reviewed & are unremarkable except as noted in HPI and below Physical Exam Const General: comfortable and no acute distress Orientation/consciousness: patient oriented x3 HEENT Head: Yes normocephalic Mouth: Normal oral and palatal mucosa present Eyes EOM: EOMs intact bilaterally Neck Neck: Yes supple Resp Auscultation: clear to auscultation bilaterally Cardio Jugular venous distension: no JVD Rate: regular rate GI Palpation (GI): Soft to palpation Auscultation: normal bowel sounds General: Yes no CVA tenderness Back/Spine/Pelvis Back: no CVA tenderness Skin General skin exam: no rashes or lesions noted Neuro General: patient oriented x3 and moves all extremities Extrem General: Yes no pedal edema Assessment & Plan Assessment & Plan (1) Chronic kidney disease, stage 3b: Code(s): N18.32 - Chronic kidney disease, stage 3b Category: Medical (2) Hypertension: Code(s): I10 - Essential (primary) hypertension Category: Medical Qualifiers: Hypertension type: primary hypertension Qualified Code(s): I10 - Essential (primary) hypertension Plan Frida has a chronic kidney disease due to vascular disease. She has longstanding history of rheumatoid arthritis. She had ATN during her cardiac surgery and postoperatively. Her renal functions is close to baseline . She has mild proteinuria. Her blood pressure has been stable. Her volume status is optimal. She does not take any nonsteroidal anti-inflammatory medications. I plan to do a Doppler of her renal arteries with time. All her and her 's questions were answered Orders: Orders Blood Urea Nitrogen 7 Months I10 - Essential (primary) hypertension, N18.32 - Chronic kidney disease, stage 3b Electrolytes 7 Months I10 - Essential (primary) hypertension, N18.32 - Chronic kidney disease, stage 3b Phosphorus 7 Months I10 - Essential (primary) hypertension, N18.32 - Chronic kidney disease, stage 3b Vitamin D 25-OH Total 7 Months I10 - Essential (primary) hypertension, N18.32 - Chronic kidney disease, stage 3b Creatinine 7 Months I10 - Essential (primary) hypertension, N18.32 - Chronic kidney disease, stage 3b Calcium 7 Months I10 - Essential (primary) hypertension, N18.32 - Chronic kidney disease, stage 3b Parathyroid Hormone Intact 7 Months I10 - Essential (primary) hypertension, N18.32 - Chronic kidney disease, stage 3b Coding Level of Care Code Est Pt Level 4 (88431) Diagnoses Chronic kidney disease, stage 3b N18.32 Primary hypertension I10 Hypertension type: primary hypertension
[2025-05-25 15:25] VITALS: BP 140/70; BMI 23.0
--- OUTSIDE RECORDS SUMMARY | 2025-05-25 16:00 | XMS_ITS ---
Author Name [facility] Organization Unknown History of Medication Use Medication Directions Dispensed Refills Start Date End Date Stat us doxycycline hyclate 100 mg capsule TAKE 1 CAPSULE BY MOUTH TWICE A DAY FOR 10 DAYS 07/23/2023 active leflunomide 20 mg tablet TAKE 1 TABLET BY MOUTH EVERY DAY 07/23/2023 active furosemide 20 mg tablet TAKE 1 TABLET BY MOUTH EVERY DAY 01/22/2023 completed clindamycin HCl 300 mg capsule TAKE 1 CAPSULE BY MOUTH EVERY 8 HOURS active enalapril maleate 20 mg tablet 20 mg by oral route. active fluoxetine 20 mg capsule 20 mg by oral route. active rosuvastatin 20 mg tablet 20 mg by oral route. active tramadol 50 mg tablet TAKE 2 TABLETS BY MOUTH 3 TIMES A DAY NEEDED FOR PAIN active Allergies Allergen Reaction Severity Comment Documented Date Source Statu s OXAPROZIN HIVES ENS_[facility]ONECT SUMATRIPTAN HIVES E[facility] TAMOXIFEN HIVES E[facility] DAYPRO E[facility] IMITREX [facility] PENICILLINS [facility] Problems Problem Status Onset Date Problem Type Date of Resoluti on Source Fracture of femur active 2023-02-11 ProblemAct [facility] At risk of disease active 2023-01-28 ProblemAct [facility] Pain active 2023-01-28 ProblemAct [facility] Encounters Encounter Type Encounter Reason Primary Diagnosis Location Date Ambulatory [facility] 09/24/2023 Ambulatory [facility] 07/23/2023 Ambulatory [facility] 07/23/2023 Ambulatory [facility] 04/23/2023 Ambulatory [facility] 04/23/2023 Ambulatory [facility] 04/16/2023 Ambulatory [facility] 04/16/2023 Ambulatory [facility] 03/19/2023 Ambulatory [facility] 03/19/2023 Ambulatory [facility] 03/13/2023 Ambulatory [facility] 02/20/2023 Ambulatory [facility] 02/12/2023 Ambulatory [facility] 02/11/2023 Ambulatory [facility] 02/06/2023 Ambulatory [facility] 02/06/2023 Ambulatory [facility] 01/23/2023 Ambulatory [facility] 01/22/2023 Ambulatory [facility] 01/22/2023 Ambulatory [facility] 01/22/2023 Ambulatory [facility] 01/20/2023 Ambulatory [facility] 01/20/2023 Ambulatory [facility] 01/20/2023
--- OUTSIDE RECORDS SUMMARY | 2025-05-25 16:00 | XMS_ITS | Clinical Summary ---
Author Organization [facility] Address [address] [facility] [address] [place] [address] Phone Care Team Providers Care Teamsite Developer Name Role Phone Hilary Vail NP Primary Care Provider [phone] Allergies Active Allergy Reactions Criticality Noted Date [...] loss 11/29/2021 11/29/2021 Thrombosis 11/29/2021 11/29/2021 Immunizations Immunization Administration Dates Next Due Influenza, Quadrivalent, Preservative [...] Colorectal Cancer Screening: Sigmoidoscopy 2005 Pneumococcal Vaccine: 50+ Years (2 of 2 - PCV) 10/16/2020 10/16/2019 Influenza Vaccine (#1) 2025 0, 05/30/2020, 06/28/2019, Additional history exists Pneumococcal Vaccine: Peds (0 to 5 Years) and At-Risk Patients (6 to 49 Years) Discontinued 10/16/2019 Hepatitis B Vaccine Aged Out No longe r eligible based on patient's age to complete this topic Insurance [facility] Medicare Care Teams Teamsite Developer Relationship Specialty Start Date End Date Hilary Vail NP [address] [place] [id number] PCP - General Nurse Practitioner 08/20/21
--- OUTSIDE RECORDS SUMMARY | 2025-05-25 16:01 | XMS_ITS | Clinical Summary ---
Author Organization [facility] Address [address] [place] [address] Care Team Providers Care Reclamation Kettle Tender Name Role Phone Hilary Vail NP Primary Care Provider [phone] Allergies Active Allergy Reactions Criticality Noted Date [...] 57 01/29/2023 8:02 AM EDT Temperature 36.7 C (98.1 F) 01/29/2023 8:02 AM EDT Respiratory Rate 17 01/29/2023 8:02 AM EDT [...] - PCV) 2021 10/16/2019 COVID-19 Vaccine ( - season) 2025 01/08/2022, 05/12/2021, 01/23/2021, Additional history exists Influenza Vaccine (#1) 2025 2, 06/26/2021, 05/30/2020, Additional history exists RSV Adult > 60+ Yrs or (1 - 1-dose 75+ series) 2031 Hepatitis B Vaccines Aged Out No long er eligible based on patient's age to complete this topic RSV Ped < 20 months Aged Out No longe r eligible based on patient's age to complete this topic Medical Devices Implanted Type Area Business Development Assistant Device Identifier Shelf Expiration Date Model / Serial / Lot Femoral Nail Retrograde [id number] Stry-Howm [id number] - [id number] Implanted:Qty: 1 on 01/28/2023 by Francia Hilario MD at [facility] Left: Femur [employer] 08/20/2032 [id number] / / [id number] Screw Locking 70x5mm T2 Alpha Stry-Tram [id number] - [id number] Implanted:Qty: 1 on 01/28/2023 by Francia Hilario MD at [facility] and [facility] Left: Femur [employer] 10/21/2032 [id number] / / [id number] Screw Locking 5x50mm Stry-Tram [id number] - [id number] Implanted:Qty: 1 on 01/28/2023 by Francia Hilario MD at [facility] and [facility] Left: Femur [employer] 07/21/2032 [id number] / / [id number] Screw Locking 5x37.5mm Stry-Tram [id number] - [id number] Implanted:Qty: 1 on 01/28/2023 by Francia Hilario MD at [facility] and [facility] Left: Femur [employer] 11/18/2032 [id number] / / [id number] Screw Locking 5x37.5mm Stry-Tram [id number] - [id number] Implanted:Qty: 1 on 01/28/2023 by Francia Hilario MD at [facility] and [facility] Left: Femur [employer] 03/20/2032 [id number] / / [id number] Advance Directives For more information, please contact: [phone] Latest Code Status on File Code Status Date Activated Date Inactivated Comments Full Code 01/28/2023 10:09 AM 01/29/2023 7:12 PM This code status was ascertained in the following way: discussion with patient . Care Teams Reclamation Kettle Tender Relationship Specialty Start Date End Date Hilary Vail NP [address] [place] [address] PCP - General Nurse Practitioner 01/28/23
--- OUTSIDE RECORDS SUMMARY | 2025-05-25 16:01 | XMS_ITS | Clinical Summary ---
Author Organization [address] [place] [address] [place] [phone] Phone Care Team Providers Care Journeyman Pipefitter Name Role Phone Haylee carreon GE Primary Care Provider [phone] Allergies Active Allergy Reactions Criticality Noted Date Comments Bacitracin Itching 08/22/2021 Oxaprozin Hives,Rash 10/18/2018 Neomycin-Polymyxin B Gu 05/06/2022 Penicillins Hives,Itching,Rash 10/18/2018 Sumatriptan Hives,Rash 10/18/2018 Tamoxifen Flushing,Hives 10/18/2018 Presyncope, Abdominal pain Medications leflunomide (ARAVA) 20 mg tablet Take 1 tablet (20 mg total) by mouth 1 (one) time each day. Active multivitamin with minerals tablet Take by [...] total) 1 (one) time each day. Active amitriptyline (ELAVIL) 10 mg tablet Take 2.5 mg by mouth. at bedtime. 08/02/20 24 Active omeprazole OTC (PriLOSEC OTC) 20 mg EC tabletIndication s:Black stool,Iron deficiency anemia, unspecified iron deficiency anemia type Take 1 tablet (20 mg total) by mouth 2 (two) times a day. Do not crush, chew, or split. 180 tablet 3 09/08/20 24 025 Active dicyclomine (BENTYL) 20 mg tabletIndication s:Generalized abdominal pain Take 1 tablet (20 mg total) by mouth 4 (four) times a day if needed (abdominal pain). 120 each 11 11/02/[address] (ENTOCORT EC) 3 mg 24 hr capsuleIndicatio ns:Collagenous colitis TAKE 3 CAPSULES (9 MG TOTAL) BY MOUTH EVERY DAY IN THE MORNING 270 capsule 1 12/03/19 25 Active Additional Information Patient taking differently: 1 capsule Daily, Reported on 05/23/2025 amLODIPine (NORVASC) 2.5 mg tabletIndication s:Primary hypertension Take 1 tablet (2.5 mg total) by mouth 1 (one) time each day. 90 each 1 12/21/19 25 026 Active clindamycin (CLEOCIN) 300 mg capsule Take 2 capsules (600 mg total) by mouth See administration instructions. Take 2 caps 30-60 minutes prior to dental procedures. 2 capsule 5 01/28/20 25 Active gabapentin (NEURONTIN) 100 mg capsule 02/20/20 25 Active DULoxetine (CYMBALTA) [address] capsule Take 1 capsule (30 mg total) by mouth 1 (one) time each day. 01/31/20 25 Active golimumab (SIMPONI ARIA IV) Infuse 50 mg into a venous catheter once every eight weeks. Active Active Problems Problem Noted Date Diagnosed Date History of aortic valve replacement 12/13/2024 Assessment & Plan (12/13/2024 4:12 PM EDT): The patient is now status post aortic valve replacement in 2020 secondary to aortic valve insufficiency and stenosis. Her most recent echocardiogram completed 10/17/2024 shows a bioprosthetic aortic valve that is well-seated and functioning normally without regurgitation or stenosis. As such, it does not appear that her fatigue and shortness of breath are related to valvular dysfunction. We will continue to monitor her bioprosthetic valve with serial echocardiograms. Mild mitral regurgitation 12/13/2024 Assessment & Plan (12/13/2024 4:12 PM EDT): Mild mitral regurgitation noted on echocardiogram from 10/17/2024; once again, her valvular dysfunction does not appear significant enough to be causative for her symptoms. Will continue to follow this with serial echocardiograms. Chronic fatigue 12/13/2024 Assessment & Plan (12/13/2024 4:12 PM EDT): As above.Orders: Cardiac event monitor; Future PAC (premature atrial contraction) 12/13/2024 Assessment & Plan (12/13/2024 4:12 PM EDT): As above. Orders: Cardiac event monitor; Future Pre-syncope 09/22/2024 Assessment & Plan (12/13/2024 4:12 PM EDT): Fully resolved with discontinuation of amlodipine. Assessment & Plan (09/22/2024 12:20 PM EST): [...] perfusion; Future Palpitations 09/22/2024 Assessment & Plan (12/13/2024 4:12 PM EDT): The patient does have a history of paroxysmal postoperative atrial fibrillation; however, she was in normal sinus rhythm when discharged from the hospital and has had no known recurrence of her atrial fibrillation. I have reviewed the patient's recent ROCT monitor with Dr. Ocasio which did show an ectopic atrial tachycardia and no evidence of atrial fibrillation. She does have frequent PACs noted on her EKG today, but is asymptomatic of these and does not appear to be overly bothered by them; as such, there does not appear to be an indication to pursue changes in medical therapies at this time. She is concerned about possible recurrence of atrial fibrillation and the increased risk for a cardioembolic event related to this; her has a history of atrial fibrillation so she is well versed with this. Given her significant anemia, I am not compelled to anticoagulate her at this time as there is no clear evidence of recurrence of atrial fibrillation; I discussed this with Dr. Ocasio and he is in agreement with this. We discussed the possibility of an implantable loop recorder versus repeating a 30-day monitor when she is feeling well enough to wear it for the entire 30 days, and the patient wishes to repeat the 30-day monitor for further evaluation. Once results of this are reviewed, we will readdress the plan including possible changes in her medications; the patient is agreeable. Orders: ECG 12 lead Cardiac event monitor; Future Assessment & Plan (09/22/2024 12:20 PM EST): We will evaluate her palpitations further with a 30-day monitor and continue to readdress this as needed. Orders: Cardiac event monitor; Future Status post coronary artery bypass graft 025 Assessment & Plan (12/13/2024 4:12 PM EDT): Assessment & Plan (09/22/2024 12:20 PM EST): [...] ability at this time. Assessment & Plan (12/13/2024 4:12 PM EDT): The patient's blood pressure was elevated on initial arrival but significantly improved upon recheck; she reports that ambulating any care caused her significant back pain related to her T12 fracture and she feels this was the reason her blood pressure was so elevated. She does have access to a blood pressure cuff at home and I requested that she monitor her blood pressures 1 to 2 hours after morning medications, calling our office if persistently elevated above 130s/80s, at which time we will readdress her antihypertensive regimen. We will not make any changes to her current regimen, continue carvedilol. Assessment & Plan (09/22/2024 12:20 PM EST): [...] each day. SOB (shortness of breath) 03/25/2023 Assessment & Plan (12/13/2024 4:12 PM EDT): As above; we will update an ischemic workup given the fatigue and shortness of breath or her previous anginal symptoms. However, her shortness of breath and fatigue may have origins in several other diagnoses including chronic anemia and rheumatoid arthritis which has caused her to be significantly deconditioned. She is increasing her activity and her endurance is improving; at the same time, she is noting the symptoms are improving slightly as well. Her rheumatoid arthritis medications will be changing in the near future which will hopefully help to improve her anemia. We will continue to follow this and readdress as indicated based on test results and symptoms.Orders: Cardiac event monitor; Future CAD (coronary artery disease) 03/23/2023 Overview (08/09/2024): [...] from her femur fracture Assessment & Plan (12/13/2024 4:12 PM EDT): As discussed above, the patient's previous anginal symptoms prior to her CABG in 2020 included fatigue and shortness of breath. She is once again experiencing these symptoms, a cause for which be multifactorial in origin including secondary to her anemia, RA, and subsequent deconditioning. We discussed updating a stress test at her last visit and this was ordered for her in August 2024; she reports that she became ill and was not able to have this completed when it was originally scheduled, and she never rescheduled it. We will reschedule this for her today to rule out that underlying ischemia may be causative. In the interim, continue cardioprotective medical therapies including carvedilol, rosuvastatin, and daily ASA. The patient was advised to seek emergent medical attention by calling 911 if they were to develop severe dyspnea, chest pain that did not resolve with rest, or if they were to faint. Orders: ECG 12 lead Assessment & Plan (09/22/2024 12:20 PM EST): [...] in origin musculoskeletal in nature. Aortitis syndrome (CMS/HCC V24, CMS/HCC V28) Colitis 10/21/2022 Heart murmur, systolic 05/06/2022 Congenital Q-T prolongation on ECG 03/06/2021 Paroxysmal atrial fibrillation (CMS/[facility] V24, CMS /[facility] V28) 03/06/2021 Assessment & Plan (12/13/2024 4:12 PM EDT): As above; no clear recurrence of paroxysmal atrial fibrillation since her CABG and aortic valve replacement. Her [id number] score is equal to 4 (1 for age, 1 for gender modifier, 1 for hypertension, and 1 for history of vascular disease); however, she is not on anticoagulation. As outlined above, given her history of significant anemia in addition to no known recurrence of her atrial fibrillation, we will hold off on anticoagulation at this time and pursue repeat 30-day monitor for reevaluation of possible underlying atrial fibrillation. We will continue to readdress this as indicated by these results.Orders: Cardiac event monitor; Future Nonrheumatic aortic (valve) stenosis 11/12/2020 Assessment & Plan (12/13/2024 4:12 PM EDT): Assessment & Plan (09/22/2024 12:20 PM EST): Nonrheumatic aortic valve insufficiency 11/12/19 Assessment & Plan (12/13/2024 4:12 PM EDT): Assessment & Plan (09/22/2024 12:20 PM EST): [...] Snoring 11/12/2020 Anemia 08/17/2019 Assessment & Plan (01/26/2025 12:54 PM EDT): Unremarkable colonoscopy and upper endoscopy Not iron deficient [place] to be related to her Arava and has since been switched to Simponi for RA Followed by Dr. Castro Assessment & Plan (11/25/2024 12:21 PM EST): Non iron deficient Recent colonoscopy and upper endoscopy did not identify source Capsule endoscopy is already scheduled and we will continue to pursue it given multiple GI symptoms to rule out small bowel abnormality Assessment & Plan (11/02/2024 6:02 PM EST): No past blood work to review. Patient states she has upcoming appointment with hematology tomorrow. Schedule for capsule endoscopy given ongoing issues and continued anemia, per patient. Orders: CBC; Future Iron and TIBC; Future Ferritin, Future Anxiety 08/17/2019 Aortic atherosclerosis (CMS/HCC V24) 08/17/2019 Assessment & Plan (09/22/2024 12:20 PM EST): We will continue to monitor blood pressure and cholesterol for adequate control as above. Orders: ECG 12 lead Aortic mural thrombus (CMS/HCC V24, CMS/HCC V28) 08/17/2019 Depression 08/17/2019 Mixed hyperlipidemia 08/17/2019 Overview (08/09/2024): Last Assessment & Plan: Currently on rosuvastatin 20 not describing unusual myalgia, again one may consider and incremental increase in her rosuvastatin or the addition of ezetimibe goal LDL towards 50 in a patient with known coronary disease and other noted vascular disease. Assessment & Plan (12/13/2024 4:12 PM EDT): LDL goal for this patient was a history of coronary artery disease is less than 70. Her most recent lipid panel completed on 11/02/2024 shows an LDL of 57 which is at goal. Continue rosuvastatin. Assessment & Plan (09/22/2024 12:20 PM EST): [...] (08/09/2024): Thoracic, & Lumbar Spine Rheumatoid arthritis ([facility] V24, [facility] V28) 08/17/2019 Stage 3a chronic kidney disease ([facility] V24, CM /[facility] V28) 08/17/2019 Subclavian artery stenosis ([facility] V24) 019 Overview (08/09/2024): Right TIA (transient ischemic attack) 08/17/2019 Bilateral carotid artery stenosis 10/18/2018 Overview (08/09/2024): Last Assessment & Plan: Stable Encounters Date Type Department Care Team Description 05/23/2025 11:00 AM EDT Office Visit [facility] Hematology Oncology [address] [place] [phone] Carolann Castro MD Anemia due to stage 3b chronic kidney disease ([facility] V24, [facility] V28) (Primary Dx) 04/26/2025 Telephone Vascular Surgery - [place] [address] [place] [phone] Edgar Mcelroy MD 03/31/2025 12:50 PM EDT - 03/31/2025 11:59 PM EDT Hospital Encounter [facility] [address] [facility] [address] [place] [phone] Carolann Castro MD Anemia due to stage 3b chronic kidney disease ([facility] V24, [facility] V28) (Primary Dx) Discharge Disposition: Home or Self Care 03/16/2025 12:46 PM EDT - 03/16/2025 11:59 PM EDT Hospital Encounter [facility] [address] [phone] Carolann Castro MD Anemia due to stage 3b chronic kidney disease (CMS/HCC V24, CMS/HCC V28) (Primary Dx) Discharge Disposition: Home or Self Care 03/02/2025 12:05 PM EDT - 03/02/2025 11:59 PM EDT Hospital Encounter [facility] [address] [phone] Anemia due to stage 3b chronic kidney disease (CMS/HCC V24, CMS/HCC V28) (Primary Dx) Discharge Disposition: Home or Self Care 03/02/2025 Telephone [facility] [address] [place] [phone] Calixto Ocasio MD from Last 3 Months Immunizations Name [...] tension) Hyperlipidemia 08/17/2019 DX:Hyperlipidemi a Rheumatoid arthritis (CMS/HC C V24, [facility] V28) 08/17/2019 DX:Rheumatoid arthritis (HCC ) Migraine 08/17/2019 DX:Migraine Aortic atherosclerosis ([facility] V24) 08/17/2019 DX:Aortic atherosclerosis (HCC) Aortic mural thrombus ([facility]/H CC V24, [facility] V28) 08/17/2019 DX:Aortic mural thrombus (HC C) Anxiety 08/17/2019 DX:Anxiety Anemia 08/17/2019 DX:Anemia Depression 08/17/2019 DX:Depression Insomnia 08/17/2019 DX:Insomnia CKD (chronic kidney disease) stage 3, GFR 30-59 ml/min ([facility] V24, [facility] V28) 08/17/2019 DX:CKD (chronic kidney disea se) stage 3, GFR 30-59 ml/min ([facility]) Subclavian artery stenosis ( [facility] V24) 08/17/2019 DX:Subclavian artery stenosi s ([facility]); COMMENT: Right Osteoarthritis 08/17/2019 DX:Osteoarthriti s; COMMENT: [...] injury superimp osed on chronic kidney disease ([facility] V24) DX:Acute kidney i njury superimposed on chronic kidney disease (HCC) Aching [...] Orientation Straight 12/05/2024 3: 28 PM EDT Obstetrics History Last Filed Vital Signs Vital Sign Reading Time Taken Comments Blood Pressure 125/70 05/23/2025 10:48 AM EDT Pulse 55 05/23/2025 10:48 AM EDT Temperature 36.4 C (97.6 F) 05/23/2025 10:48 AM EDT Respiratory Rate 18 03/02/2025 12:16 PM EDT Oxygen Saturation 100% 05/23/2025 10:48 AM EDT Inhaled Oxygen Concentration - - Weight 57.2 kg (126 lb) 05/23/2025 10:48 AM EDT Height 154.9 cm (5' 1 ) 01/26/2025 10:19 AM EDT Body Mass Index 23.81 01/26/2025 10:19 AM EDT Plan of Treatment Upcoming Encounters Date Type Department Care Team (Late st Contact Info) Description 05/26/2025 1:00 PM EDT Appointment [facility] [address] [facility] 2nd [place] [phone] 05/30/2025 11:00 AM EDT Appointment [facility] Ultrasound [address] [place] [phone] 07/24/2025 2:00 PM EST Office Visit [facility] - [place] [address] [place] [phone] Edgar Mcelroy MD [address] [place] [phone] 11/20/2025 9:30 AM EST Office Visit [facility] Hematology Oncology [address] [place] [phone] Carolann Castro MD [address] [place] [address] Health Maintenance Due Date Last Done Comments Breast Cancer Screening 1955 DTaP,Tdap,and Td Vaccines (1 - Tdap) 1975 Zoster Vaccines (1 of 2) 1975 RSV Immunization Adult Patients (1 - Risk 60-74 years 1-dose series) 2016 Pneumococcal Vaccine: 50+ Years (2 of 2 - PCV) 10/16/2020 10/16/2019 Hepatitis C Screening 08/30/2022 Medicare Annual Wellness Visit 08/30/2022 Social Influencers of Health Screening 08/30/2022 Depression Screening 09/21/2024 COVID-19 Vaccine ( season) 2025 06/18/2022, 01/08/2022, 05/12/2021, Additional history exists Influenza Vaccine (#1) 2025 , 07/17/2023, 06/11/2023, Additional history exists Hypertension/CHF/CAD Annual BMP Blood Test 03/13/2026 03/13/2025, 02/08/2025, 11/03/2024, Additional history exists Falls Risk Assessment 03/31/2026 03/31/2025 Cholesterol Screening (Lipid Panel) 11/02/2029 11/02/2024 Osteoporosis Screening (Bone Density Screening) 12/18/2032 12/18/2022 Colorectal Cancer Screening: Colonoscopy 09/22/2034 09/22/2024 HIB Vaccines Aged Out No longer eligi [...] age to complete this topic Meningococcal B Vaccine Aged Out No l onger eligible based on patient's age to complete this topic RSV Immunization Patients Under 20 months Aged Out No longer eligible based on patient's age to complete this topic Varicella Vaccines Aged Out No longer eligible based on patient's age to complete this topic Medical Devices Implanted Type Area Optician Apprentice Dispensing Device Identifier Shelf Expiration Date Model / Serial / Lot Femoral Nail Retrograde [id number] Stry-Howm [id number] Implanted:Qty: 1 on 01/28/2023 by Francia Hilario MD Left: [employer]ur [employer] 08/20/2032 [id number] / / [id number] Screw Locking 70x5mm T2 Alpha Stry-Tram [id number] Implanted:Qty: 1 on 01/28/2023 by Francia Hilario MD Left: Femur [employer] 10/21/2032 [id number] / / [id number] Screw Locking 5x50mm Stry-Tram [id number] Implanted:Qty: 1 on 01/28/2023 by Francia Hilario MD Left: Femur [employer] 07/21/2032 [id number] / / [id number] Screw Locking 5x37.5mm Stry-Tram [id number] Implanted:Qty: 1 on 01/28/2023 by Francia Hilario MD Left: Femur [employer] 11/18/2032 [id number] / / [id number] Screw Locking 5x37.5mm Stry-Tram [id number] Implanted:Qty: 1 on 01/28/2023 by Francia Hilario MD Left: Femur [employer] 03/20/2032 [id number] / / [id number] Procedures Procedure Name Priority Date/Time Associated Diagnosis Comments CBC WITH AUTO DIFFERENTIAL Routine 05/23/2025 11:09 AM EDT Anemia due to stage 3b chronic kidney disease (CMS/HCC V24, CMS/HCC V28) CBC AND DIFFERENTIAL Routine 05/23/2025 11:09 AM EDT Anemia due to stage 3b chronic kidney disease (CMS/HCC V24, CMS/HCC V28) CBC WITH AUTO DIFFERENTIAL Routine 05/08/2025 10:39 AM EDT Anemia due to stage 3b chronic kidney disease (CMS/HCC V24, CMS/HCC V28) CBC AND DIFFERENTIAL Routine 05/08/2025 10:39 AM EDT Anemia due to stage 3b chronic kidney disease (CMS/HCC V24, CMS/HCC V28) CBC WITH AUTO DIFFERENTIAL Routine 04/24/2025 11:51 AM EDT Anemia due to stage 3b chronic kidney disease (CMS/HCC V24, CMS/HCC V28) VITAMIN B12 Routine 04/24/2025 11:51 AM EDT Anemia due to stage 3b chronic kidney disease (CMS/HCC V24, CMS/HCC V28) FOLATE Routine 04/24/2025 11:51 AM EDT Anemia due to stage 3b chronic kidney disease (CMS/HCC V24, CMS/HCC V28) CBC AND DIFFERENTIAL Routine 04/24/2025 11:51 AM EDT Anemia due to stage 3b chronic kidney disease (CMS/HCC V24, CMS/HCC V28) CBC WITH AUTO DIFFERENTIAL Routine 04/11/2025 12:44 PM EDT Anemia due to stage 3b chronic kidney disease (CMS/HCC V24, CMS/HCC V28) CBC AND DIFFERENTIAL Routine 04/11/2025 12:44 PM EDT Anemia due to stage 3b chronic kidney disease (CMS/HCC V24, CMS/HCC V28) CBC WITH AUTO DIFFERENTIAL Routine 03/28/2025 11:52 AM EDT Anemia due to stage 3b chronic kidney disease (CMS/HCC V24, CMS/HCC V28) CBC AND DIFFERENTIAL Routine 03/28/2025 11:52 AM EDT Anemia due to stage 3b chronic kidney disease (CMS/HCC V24, CMS/HCC V28) FOLATE Routine 03/28/2025 11:52 AM EDT Anemia due to stage 3b chronic kidney disease (CMS/HCC V24, CMS/HCC V28) VITAMIN B12 Routine 03/28/2025 11:52 AM EDT Anemia due to stage 3b chronic kidney disease (CMS/HCC V24, CMS/HCC V28) CBC WITH AUTO DIFFERENTIAL Routine 03/13/2025 10:56 AM EDT Anemia due to stage 3b chronic kidney disease (CMS/HCC V24, CMS/HCC V28) ERYTHROPOIETIN Routine 03/13/2025 10:56 AM EDT Anemia due to stage 3b chronic kidney disease (CMS/HCC V24, CMS/HCC V28) VITAMIN B12 Routine 03/13/2025 10:56 AM EDT Anemia due to stage 3b chronic kidney disease (CMS/HCC V24, CMS/HCC V28) FOLATE Routine 03/13/2025 10:56 AM EDT Anemia due to stage 3b chronic kidney disease (CMS/HCC V24, CMS/HCC V28) TRANSFERRIN Routine 03/13/2025 10:56 AM EDT Anemia due to stage 3b chronic kidney disease (CMS/HCC V24, CMS/HCC V28) FERRITIN Routine 03/13/2025 10:56 AM EDT Anemia due to stage 3b chronic kidney disease (CMS/HCC V24, CMS/HCC V28) IRON Routine 03/13/2025 10:56 AM EDT Anemia due to stage 3b chronic kidney disease (CMS/HCC V24, CMS/HCC V28) CREATININE, SERUM Routine 03/13/2025 10: 56 AM EDT Anemia due to stage 3b chronic kidney disease ([facility]/HCC V24, [facility] V28) CBC AND DIFFERENTIAL Routine 03/13/2025 10:56 AM EDT Anemia due to stage 3b chronic kidney disease ([facility]/HCC V24, [facility] V28) LIPID PANEL WITH REFLEX TO DIRECT LDL Routine 11/02/2024 3:36 PM EST Coronary artery disease involving [place] coronary artery of [place] heart without angina pectoris Hyperlipidemia, unspecified hyperlipidemia type COLONOSCOPY Routine 09/22/2024 9:11 AM EST Colon cancer screening [employer]MER D[employer]A AXIAL SKELETON Routine 12/18/2022 7:48 AM EDT Encounter for screening for osteoporosis from Last 3 Months or Most Recently Relevant to Health Maintenance Results * (ABNORMAL) CBC auto differential (05/23/2025 11:09 AM EDT) Only the most recent of6 resultswithin the time period is included. WBC 8.4 4.8 - 10.8 K/mcL LAB HEMETOLOGY METHOD 05/23/2025 11:47 AM [facility] RBC 4.10 3.80 - 4.80 M/mcL LAB HEMETOLOGY METHOD 05/23/2025 11:47 AM [facility] Hemoglobin 11.3(L) 11.5 - 16.0 g/dL LAB HEMETOLOGY METHOD 05/23/2025 11:47 AM [facility] Hematocrit 37.2 35.0 - 47.0 % LAB HEMETOLOGY METHOD 05/23/2025 11:47 AM [facility] MCV 90.3 79.0 - 98.0 FL LAB HEMETOLOGY METHOD 05/23/2025 11:47 AM [facility] MCH 27.4 27.0 - 32.0 pcg LAB HEMETOLOGY METHOD 05/23/2025 11:47 AM [facility] MCHC 30.4(L) 32.0 - 37.0 g/dL LAB HEMETOLOGY METHOD 05/23/2025 11:47 AM [facility] RDW 15.6(H) 11.0 - 15.0 % LAB HEMETOLOGY METHOD 05/23/2025 11:47 AM [facility] Platelets 196 130 - 400 K/mcL LAB HEMETOLOGY METHOD 05/23/2025 11:47 AM [facility] MPV 10.0 7.0 - 11.0 FL LAB HEMETOLOGY METHOD 05/23/2025 11:47 AM [facility] NRBC 0.0 <1.0 % LAB HEMETOLOGY METHOD 05/23/2025 11:47 AM [facility] NRBC Absolute 0.00 <0.10 K/mcL LAB HEMETOLOGY METHOD 05/23/2025 11:47 AM [facility] Neutrophils Relative 60.2 % LAB HEMETOLOGY METHOD 05/23/2025 11:47 AM [facility] Lymphocytes Relative 28.5 % LAB HEMETOLOGY METHOD 05/23/2025 11:47 AM [facility] Monocytes Relative 7.6 % LAB HEMETOLOGY METHOD 05/23/2025 11:47 AM [facility] Eosinophils Relative 2.3 % LAB HEMETOLOGY METHOD 05/23/2025 11:47 AM [facility] Basophils Relative 1.0 % LAB HEMETOLOGY METHOD 05/23/2025 11:47 AM [facility] Immature Granulocytes Relative 0.4 % LAB HEMETOLOGY METHOD 05/23/2025 11:47 AM [facility] Neutrophils Absolute 5.06 1.50 - 7.00 K/mcL LAB HEMETOLOGY METHOD 05/23/2025 11:47 AM EDT [facility] Lymphocytes Absolute 2.39 1.00 - 5.00 K/[facility] LAB HEMETOLOGY METHOD 05/23/2025 11:47 AM EDT [facility] Monocytes Absolute 0.64 0.20 - 1.00 K/[facility]L LAB HEMETOLOGY METHOD 05/23/2025 11:47 AM EDT [facility] Eosinophils Absolute 0.19 0.00 - 0.50 K/[facility] LAB HEMETOLOGY METHOD 05/23/2025 11:47 AM EDT [facility] Basophils Absolute 0.08 0.00 - 0.20 K/[facility] LAB HEMETOLOGY METHOD 05/23/2025 11:47 AM EDT [facility] Immature Granulocytes Absolute 0.03 0.00 - 0.03 K/[facility] LAB HEMETOLOGY METHOD 05/23/2025 11:47 AM EDT [facility] Blood Venous blood specimen / Unknown Venipuncture / Unknown 05/23/2025 11:09 AM EDT 05/23/2025 11:30 AM EDT Carolann Castro MD LAB BLOOD ORDERABLES Final R esult [facility] [address] [place] [address], * (ABNORMAL) Folate (04/24/2025 11:51 AM EDT) Only the most recent of3 resultswithin the time period is included. Folate >20.0(H) 2.8 - 17.0 ng/ml LAB CHEMISTRY METHOD 04/24/2025 3:44 PM EDT [facility] Blood Venous blood specimen / Unknown Venipuncture / Unknown 04/24/2025 11:51 AM EDT 04/24/2025 11:51 AM EDT Carolann Castro MD LAB BLOOD ORDERABLES Final R esult Performing Organization Address City/[facility]/ZIP Co de Phone Number [facility] [address] [place] [address], [place] [phone] * Vitamin B12 (04/24/2025 11:51 AM EDT) Only the most recent of3 resultswithin the time period is included. [facility] Vitamin B-12 484 250 - 900 pcg/mL LAB CHEMISTRY METHOD 04/24/2025 3:44 PM EDT [facility] Blood Venous blood specimen / Unknown Venipuncture / Unknown 04/24/2025 11:51 AM EDT 04/24/2025 11:51 AM EDT Carolann Castro MD LAB BLOOD ORDERABLES Final R esult Performing Organization Address [facility] Co de Phone Number [facility] [address] [place] [address], [place] [phone] * Erythropoietin (03/13/2025 10:56 AM EDT) [facility] Erythropoietin 11.4 2.6 - 18.5 mIU/mL 03/16/2025 1:45 PM EDT [facility] Comment: Test performed at [facility], [address], [place] [address] Shirlene Scherer MD, PhD - [employer] Interpreter Blood Venous blood specimen / Unknown Venipuncture / Unknown 03/13/2025 10:56 AM EDT 03/13/2025 10:56 AM EDT Carolann Castro MD LAB BLOOD ORDERABLES Final R esult Performing Organization Address City/[facility]/ZIP Co de Phone Number [facility] [address] [place] [address] * (ABNORMAL) Creatinine serum (03/13/2025 10:56 AM EDT) Creatinine 1.83(H) 0.50 - 1.10 mg/dL LAB CHEMISTRY METHOD 03/13/2025 4:30 PM EDT [facility] eGFR 30(L) >=60 mL/min/1. 73m2 LAB CHEMISTRY METHOD 03/13/2025 4:30 PM EDT [facility] Comment:Calculation based on the Chronic Kidney Disease Epidemiology Collaboration (CKD-EPI) equation refit without adjustment for race. Blood Venous blood specimen / Unknown Venipuncture / Unknown 03/13/2025 10:56 AM EDT 03/13/2025 10:56 AM EDT Carolann Castro MD LAB BLOOD ORDERABLES Final R esult Performing Organization Address City/[facility]/ZIP Co de Phone Number [facility] [address] [place] [address], * (ABNORMAL) Transferrin (03/13/2025 10:56 AM EDT) Pathologist [facility] Transferrin 181(L) 200 - 360 mg/dL 03/16/2025 4:18 AM EDT [facility] Comment: Test performed at [facility], [address] , [place] [address] Shirlene Scherer MD, PhD - [employer] Interpreter Blood Venous blood specimen / Unknown Venipuncture / Unknown 03/13/2025 10:56 AM EDT 03/13/2025 10:56 AM EDT Carolann Castro MD LAB BLOOD ORDERABLES Final R esult [facility] [address] [place] [address] * Iron (03/13/2025 10:56 AM EDT) Iron 60 40 - 150 mcg/dL LAB CHEMISTRY METHOD 03/13/2025 4:48 PM EDT [facility] Blood Venous blood specimen / Unknown Venipuncture / Unknown 03/13/2025 10:56 AM EDT 03/13/2025 10:56 AM EDT Carolann Castro MD LAB BLOOD ORDERABLES Final R esult Performing Organization Address City/[facility]/ZIP Co de Phone Number [facility] [address] [place] [address], [place] [phone] * Ferritin (03/13/2025 10:56 AM EDT) [facility] Ferritin 80 8 - 252 ng/mL LAB CHEMISTRY METHOD 03/13/2025 4:48 PM EDT [facility] Blood Venous blood specimen / Unknown Venipuncture / Unknown 03/13/2025 10:56 AM EDT 03/13/2025 10:56 AM EDT Carolann Castro MD LAB BLOOD ORDERABLES Final R esult Performing Organization Address City/[facility]/ZIP Co de Phone Number [facility] [address] [place] [address], [place] [phone] * (ABNORMAL) Lipid panel with reflex to direct LDL (11/02/2024 3:36 PM EST) [facility] Cholesterol 145 0 - 200 mg/dL LAB CHEMISTRY METHOD 11/02/2024 5:01 PM EST [facility] Triglycerides 249(H) 0 - 150 mg/dL LAB CHEMISTRY METHOD 11/02/2024 5:01 PM EST [facility] HDL 38(L) >=40 mg/dL LAB CHEMISTRY METHOD 11/02/2024 5:01 PM EST [facility] LDL Calculated 57 0 - 100 mg/dL LAB CHEMISTRY METHOD 11/02/2024 5:01 PM [facility] VLDL Cholesterol Cecilio 49.8 mg/dL LAB CHEMISTRY METHOD 11/02/2024 5:01 PM EST [facility] Non HDL Chol. (LDL+VLDL) 107 <145 mg/dL LAB CHEMISTRY METHOD 11/02/2024 5:01 PM EST [facility] Chol/HDL Ratio 3.8 0.0 - 4.4 LAB CHEMISTRY METHOD 11/02/2024 5:01 PM EST [facility] Blood Venous blood specimen / Unknown Venipuncture / Unknown 11/02/2024 3:36 PM EST 11/02/2024 4:07 PM EST Dania Hamm NP LAB BLOOD ORDERABLES Final Result [facility] [address] [place] [address], * COLONOSCOPY Anesthesia - MAC; [facility] ENDOSCOPY (09/22/2024 9:11 AM EST) Anatomical Region Laterality Modality Endoscopy 09/22/2024 8:50 AM EST Impressions 09/22/2024 9:11 AM EST - The examined portion of the ileum was normal. - One 2 mm polyp at the appendiceal orifice, removed with a cold snare. Resected and retrieved. - Diverticulosis in the sigmoid colon. - Internal hemorrhoids. Recommendation: - Await pathology results. - Repeat colonoscopy for surveillance based on pathology results. Narrative 09/22/2024 9:11 AM EST [facility] Patient Name: Frida Garcia Procedure [...] scope was passed under direct vision. Throughout the procedure, the patient's blood pressure, pulse, and oxygen [...] was found in the appendiceal orifice. The polyp was sessile. The polyp was removed with a cold snare. Resection and retrieval were complete. A few small-mouthed diverticula were found in the sigmoid colon. Internal hemorrhoids were found during retroflexion. The hemorrhoids were Grade I (internal hemorrhoids that do not prolapse). 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 All rights reserved. The codes documented in this report are preliminary and upon sawmill relief worker review may be revised to meet current compliance requirements. Sanjuana Mccormick MD 09/22/2024 9:11:24 AM This report has been signed electronically.Sanjuana Mccormick MD Number of Addenda: 0 Note Initiated On: 09/22/2024 8:50 AM Scope In: Scope Out: Endoscopy Department at [facility] - [address] [place] [phone] Procedure Note Sanjuana Mccormick MD - 09/22/2024 [facility] Patient Name: Frida Garcia Procedure [...] not prolapse). 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 All rights reserved. The codes documented in this report are preliminary and upon sawmill relief worker reviewmay be revised to meet current compliance requirements. Sanjuana Mccormick MD 09/22/2024 9:11:24 AM This report has been signed electronically.Sanjuana Mccormick MD Number of Addenda: 0 Note Initiated On: 09/22/2024 8:50 AM Scope In: Scope Out: Endoscopy Department at [facility] - [address] [place] [phone] IMPRESSION: - The examined portion of the ileum was normal. - One 2 mm polyp at the appendiceal orifice,removed with a cold snare. Resected and retrieved. - Diverticulosis in the sigmoid colon. - Internal hemorrhoids. Recommendation: - Await pathology results. - Repeat colonoscopy for surveillance based on pathology results. us Sanjuana Mccormick MD GI~PROCEDURE ORDERABLES Final Result * [facility] DEXA AXIAL SKELETON (12/18/2022 7:48 AM EDT) Anatomical Region Laterality Modality Mammography 12/17/2022 1:11 PM EDT Narrative 12/18/2022 7:48 AM EDT [facility] Diagnostic Imaging Department [address] [place] [address] Patient: FRIDA GARCIA Aleja ErvinB./Age/Sex: 1955 - 67 - F Unit#: [id number] [facility] Mn[facility]onic/Ordering Site[facility] Ordering Physician: HAYLEE VAIL SOCIAL MEDIA INTERN [facility] Dexa Axial Skeleton - 12/17/22 - 5286 HISTORY: The patient is a 67-year-old postmenopausal female with clinical concern for metabolic bone disease. FINDINGS: Dual [...] 82% of that of age matched controls. This yields a T-score of -2.3 and a Z-score of -1.3 which is diagnostic of osteopenia. IMPRESSION: 1. Osteopenia. 2. FRAX analysis yields a 10-year probability of major osteoporotic fracture of 26.4% and a 10-year probability of hip fracture of 7.3%. Code 50272 Dictating Physician: JASMINA ROBB MD Electronically Signed by: JASMINA ROBB MD Dic Date/Time: 12/18/22746 Sign date/Time: 12/18/22747 Procedure Note Jasmina Robb MD - 10/23/2023 [facility] Diagnostic Imaging Department [address] [place] [address] Patient: PHUONGCALIXTOFRIDA Masterson D.O.B./Age/Sex: 1955 - 67 - F Unit#: [id number] Location/Status: [facility] Mnemonic/Ordering Site: [facility] Ordering Physician: HAYLEE VAIL NP [facility] Dexa Axial Skeleton - 12/17/22 - 1416 HISTORY: The patient is a 67-year-old postmenopausal [...] density of the femurs bilaterally is 0.717 gm/ia0kyppi is 71% of that of young normals and 82% of that of age matched controls.This yields a T-score of -2.3 and a Z-score of -1.3 which is diagnostic of osteopenia. IMPRESSION: 1. Osteopenia. 2. FRAX analysis yields a 10-year probability of major osteoporoticfracture of 26.4% and a 10-year probability of hip fracture of 7.3%. Code 52338 Dictating Physician: JASMINA ROBB MD Electronically Signed by: JASMINA ROBB MD Dic Date/Time: 12/18/2247 Sign date/Time: 12/18/22747 Haylee Vail NP IMG BI PROCEDURES Final Result from Last 3 Months or Most Recently Relevant to Health Maintenance Insurance [facility] MEDICARE ADVANTAGE [facility] MEDICARE ADVANTAGE [facility] MEDICARE ADVANTAGE [facility] MEDICARE ADVANTAGE Advance Directives Documents on File Type Date Recorded Patient Seismometer Operator Expl anation Health Care Decision (hx) 01/19/2019 [...] (hx) 01/19/2019 AD SUAREZ DIRECTIVE Care Teams Journeyman Pipefitter Relationship Specialty Start Date End Date Haylee Vail NP [address] [place] [address] PCP - General Internal Medicine 04/29/16
== END 2025-05-25 15:41 | disposition home or self-care (01) ==
LOC: HO.HKAS 14:48
PROVIDERS: Visit Provider Internal Medicine Nephrology
DX: N18.32 Chronic kidney disease, stage 3b (principal); I10 Essential (primary) hypertension
CPT/HCPCS: 99214

== ENCOUNTER → 2025-05-25 14:47 | Outpatient (BNVA) | payer MEDICARE, SELFPAY | PROVIDERS: Visit Provider Internal Medicine Nephrology | DX: N18.32 Chronic kidney disease, stage 3b (principal); D63.1 Anemia in chronic kidney disease; I10 Essential (primary) hypertension | CPT/HCPCS: 99212 ==

== ENCOUNTER 2025-09-07 12:15 | Outpatient (AMB) | payer MEDICARE, SELFPAY ==
--- NOTE | 2025-09-07 12:16 | A.OFFVIS_ITS ---
Vital Signs 09/07/25 12:17 Height 5 ft 2 in Weight 141 lb BMI 25.8 BP 122/74 Blood Pressure Location Rt brachial Position Sitting Pulse 56 Pulse Source Pulse Oximeter Pulse Oximetry (%) 99 Oxygen Delivery Method Room Air Intake Visit Reasons: 6mon follow-up Intake Note: Follow up Chronic daily headache, migraine headache and ocular migraine Galvanizer Zinc Required: No Accompanied by: Spouse Allergies oxaprozin Allergy (Verified 09/07/25 12:17) Unknown Penicillins Allergy (Verified 09/07/25 12:17) Unknown sumatriptan Allergy (Verified 09/07/25 12:17) Unknown tamoxifen Allergy (Verified 09/07/25 12:17) Unknown HPI Comments Details: 70/o female comes for further follow up of headaches.she is doing better with amitriptyline 20mg qhs and magnesium 250mg qhs . she has about 1-2 a month . Tylenol helps her . The headaches are milder. Ubrelvy was too expensive.she still has visual aura 1 day prior to her migraine - sometimes without the headaches. History from initial visit- she has had headaches all her life but became more noticeable in her 30s. she was on fioricet , codiene at that time, later she was tried on sumatriptan, she also self treated with excedrin migraine.. she was seeing Dr. Padgett for a few years. she has headaches with visual aura but sometimes visual aura without headaches. The visual aura starts with eye pressure and sees bright squiggly lines and can last 1-3days per week .This happens 1-3 days a week Sometimes she has headaches 2 hrs after she has visual aura -unilateral temporal parietal pounding pressure with nausea , occasional vomiting, photophobia, phonophobia, dizziness. These episodes can last 1-3 days.These episodes of migraines with aura happens 1-3 days a month. Apart from these she also has mild daily headaches- usually occipital , neck and side , has nausea sometimes. No light or noise sensitivity. she does not recall any fh/o headaches Her son has migraines with visual aura. [facility] Medical History Chronic daily headache Migraine headache with aura Ocular migraine Hypertension Rheumatoid arthritis Chronic kidney disease, stage 3b Surgical History S/P AVR S/P CABG (coronary artery bypass graft) Family History Mother Hypertension Social History Alcohol intake: never Patient Tobacco Use Status: Never used Tobacco Physical Exam Vital Signs: Last Vital Signs Pulse 56 09/07/25 12:17 BP 122/74 09/07/25 12:17 Pulse Ox 99 09/07/25 12:17 Oxygen Delivery Method Room Air 09/07/25 12:17 BMI result Body Mass Index 25.8 Const General: cooperative, healthy appearing, comfortable and in distress Nutritional Appearance: average body habitus Orientation/consciousness: patient oriented x3 Eyes Pupils: Equal, round and reactive pupils present Neuro General: patient oriented x3, gait normal, tone normal, moves all extremities and no focal motor deficits Cranial nerves: Yes CN's II-XII intact bilaterally, Yes Facial sensation intact/muscles of mastication intact, Yes Equal, round and reactive pupils present, Yes Bilaterally intact EOM present, Yes Nystagmus not present, Yes Normal facial strength present, Yes Midline tongue present, Yes Symmetric palate elevation present and Yes Ability to bilaterally elevate shoulders present Cognition (Neuro): normal cognition Gait exam (Neuro): Normal gait present Motor exam (neuro): 5/5 motor strength present throughout and Normal motor muscle tone present throughout Coordination: [id number] test normal Assessment & Plan Assessment & Plan (1) Ocular migraine: Code(s): G43.109 - Migraine with aura, not intractable, without status migrainosus Category: Medical (2) Migraine headache with aura: Code(s): G43.109 - Migraine with aura, not intractable, without status migrainosus Category: Medical Qualifiers: Status migrainosus presence: without status migrainosus Intractability: not intractable Qualified Code(s): G43.109 - Migraine with aura, not intractable, without status migrainosus (3) Chronic daily headache: Code(s): R51.9 - Headache, unspecified Category: Medical Plan Amitriptyline 10 mg 2 tabs qhs for prevention of migraines and aura - suggested to maintain a migraine dairy to assess response [id number] qhs for prophylaxis Tylenol or fioricet as needed for headaches 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 Medications: Changed From amitriptyline 20 mg (2 x 10 mg) PO BEDTIME 60 tabs 6RF To amitriptyline 20 mg (2 x 10 mg) PO BEDTIME 180 tabs 6RF 90 days Coding Level of Care Code Est Pt Level 4 (64054) Add On Problem Visit Only Diagnoses Ocular migraine G43.109 Migraine with aura and without status migrainosus, not intractable G43.109 Status migrainosus presence: without status migrainosus Intractability: not intractable Chronic daily headache R51.9
[2025-09-07 12:17] VITALS: BP 122/74; PULSE 56; O2SAT 99; BMI 25.8
--- OUTSIDE RECORDS SUMMARY | 2025-09-07 16:08 | XMS_ITS | Clinical Summary ---
Author Organization [facility] Address [address] [facility] [address] [place] [address] Phone Care Team Providers Care Line Operator Name Role Phone Hilary Vail NP Primary Care Provider [phone] Allergies Active Allergy Reactions Criticality Noted Date [...] 11/29/2021 Transient cerebral ischemia 11/29/2021 11/29/2021 Weight decreased 11/29/2021 11/29/2021 Thrombosis 11/29/2021 11/29/2021 Immunizations Immunization [...] Insurance [facility] Medicare Care Teams Line Operator Relationship Specialty Start Date End Date Hilary Vail NP [address] [place] [id number] PCP - General Nurse Practitioner 08/20/21
--- OUTSIDE RECORDS SUMMARY | 2025-09-07 16:08 | XMS_ITS | Encounter Summary ---
Author Organization [facility] Address [address] [place] [address] Care Team Providers Care Conformal Pad Former Name Role Phone lauri Hilary GE Primary Care Provider [phone] Reason for Visit * Reason Onset Date Comments med refill / appointment 09/07/2025 Encounter Details Date Type Department Care Team ([facility] st Contact Info) Description 09/07/2025 Telephone Gastroenterology - [address] [place] [phone] Ronaldo Carbajal MD [address] [address] Social History Tobacco Use Types Packs/Day Years Used Date Smoking Tobacco: Former Smokeless Tobacco: Never Alcohol Use Standard Drinks/Week Comments No 0 (1 standard drink = 0.6 oz pur e alcohol) Interpersonal Safety Answer Date Record ed Physical Abuse Unrecognized value 09/22/2024 Verbal Abuse Unrecognized value 09/22/2024 Comments No Sex and Gender Information Value Date Recorded Sex Assigned at Female 12/05/2024 3:28 PM EDT Legal Sex Female 5:17 PM EST Gender Identity Female 12/05/2024 3:28 PM EDT Sexual Orientation Straight 12/05/2024 3: 28 PM EDT documented as of this encounter Progress Notes * Andra Roblero - 09/07/2025 2:45 PM EST Fax received from [facility] requesting refill for omeprazole OTC (PriLOSEC OTC) 20 mg EC tablet Quantity 180, 3 refills MARIA E 01/26/2025 - MANSI NICOLE NONE - Needs to schedule f/u with new provider for further refills documented in this encounter Plan of Treatment Upcoming Encounters Date Type Department Care Team (Late st Contact Info) Description 09/28/2025 11:00 AM EST Appointment [facility] Infusion Center [address] [phone] 11/20/2025 9:30 AM EST Office Visit [facility] Hematology Oncology [address] [place] [address] Carolann Castro MD [address] [place] [address] documented as of this encounter Visit Diagnoses Not on filedocumented in this encounter Care Teams Conformal Pad Former Relationship Specialty Start Date End Date Hilary Vail NP [address] [facility] [place] [address] PCP - General Internal Medicine 04/29/16 documented as of this encounter
--- OUTSIDE RECORDS SUMMARY | 2025-09-07 16:08 | XMS_ITS | Clinical Summary ---
Author Organization [address] [place] [address] [place] [phone] Phone Care Team Providers Care Restaurant Line Server Name Role Phone Yared Haylee GE Primary Care Provider [phone] Allergies Active Allergy Reactions Criticality Noted Date Comments Bacitracin Itching 08/22/2021 Oxaprozin Hives,Rash 10/18/2018 Neomycin-Polymyxin B Gu 05/06/2022 Penicillins Hives,Itching,Rash 10/18/2018 Sumatriptan Hives,Rash 10/18/2018 Tamoxifen Flushing,Hives 10/18/2018 Presyncope, Abdominal pain Medications multivitamin with minerals tablet Take by mouth. [...] Take 2.5 mg by mouth. at bedtime. 024 Active omeprazole OTC (PriLOSEC OTC) 20 mg EC tabletIndicati ons:Black stool,Iron deficiency anemia, unspecified iron deficiency anemia type Take 1 tablet (20 mg total) by mouth 2 (two) times a day. Do not crush, chew, or split. 180 tablet [address] (ENTOCORT EC) 3 mg 24 hr capsuleIndicat ions:Collageno us colitis TAKE 3 CAPSULES (9 MG TOTAL) BY MOUTH EVERY DAY IN THE MORNING 270 capsule 1 Active clindamycin (CLEOCIN) 300 mg capsule Take 2 capsules (600 mg total) by mouth See administration instructions. Take 2 caps 30-60 minutes prior to dental procedures. 2 capsule 5 Active gabapentin (NEURONTIN) 100 mg capsule Active DULoxetine (CYMBALTA) [address] capsule Take 1 capsule (30 mg total) by mouth 1 (one) time each day. Active golimumab (SIMPONI ARIA IV) Infuse 50 mg into a venous catheter once every eight weeks. Active amLODIPine (NORVASC) 2.5 mg tablet Take 1 tablet (2.5 mg total) by mouth 2 (two) times a day. 180 each 1 Active dicyclomine (BENTYL) 20 mg tabletIndicati ons:Generalize d abdominal pain Take 1 tablet (20 mg total) by mouth 4 (four) times a day if needed (abdominal pain). 120 each 11 025 2025 Active ondansetron (ZOFRAN) 4 mg tabletIndicati ons:Nausea and vomiting, unspecified vomiting type TAKE 1 TABLET BY MOUTH EVERY 8 HOURS IF NEEDED FOR NAUSEA OR VOMITING. 30 tablet 2 Active ondansetron (ZOFRAN) 4 mg tabletIndicati ons:Nausea and vomiting, unspecified vomiting type Take 1 tablet (4 mg total) by mouth every 8 (eight) hours if needed for nausea or vomiting. 30 tablet 2 025 2024 Discontinued Active Problems Problem Noted Date [...] on ECG 03/06/2021 Paroxysmal atrial fibrillation 03/06/2021 Assessment & Plan (12/13/2024 4:12 PM EDT): As above; no clear recurrence of paroxysmal atrial fibrillation since her CABG and aortic valve replacement. 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 Depression 08/17/2019 Mixed hyperlipidemia 08/17/2019 Overview [...] Encounters Date Type Department Care Team Description 09/07/2025 Telephone Gastroenterology - [address] [facility] [address] [place] [phone] Ronaldo Carbajal MD 08/31/2025 10:40 AM EST - 08/31/2025 11:59 PM EST Hospital Encounter [facility] [address] [place] [phone] Anemia due to stage 3b chronic kidney disease (CMS/HCC V24, CMS/HCC V28) (Primary Dx) Discharge Disposition: Home or Self Care 08/29/2025 11:40 AM EST Lab Draw Station - [address] [place] [phone] Anemia due to stage 3b chronic kidney disease (CMS/HCC V24, CMS/HCC V28) 08/02/2025 11:35 AM EST Lab Draw Station - [address] [facility] [address] [place] [phone] Anemia due to stage 3b chronic kidney disease (CMS/HCC V24, CMS/HCC V28) 07/24/2025 2:00 PM EST Office Visit Vascular Surgery - [place] [address] [place] [phone] Albina Fatima PA PAD (peripheral artery disease) ([facility] V24) (Primary Dx); Carotid stenosis, bilateral 07/07/2025 11:16 AM EDT - 07/07/2025 11:59 PM EDT Hospital Encounter [facility] [address] [place] [phone] Carolann Castro MD Anemia due to stage 3b chronic kidney disease ([facility] V24, [facility] V28) (Primary Dx) Discharge Disposition: Home or Self Care 06/09/2025 12:53 PM EDT - 06/09/2025 11:59 PM EDT Hospital Encounter [address] [phone] Anemia due to stage 3b chronic kidney disease ([facility] V24, [facility] V28) (Primary Dx) Discharge Disposition: Home or Self Care from Last 3 Months Immunizations Immunization Administration Dates Next Due Pfizer SARS-CoV-2 COVID-19, [...] tension) Hyperlipidemia 08/17/2019 DX:Hyperlipidemi a Rheumatoid arthritis ([facility] C V24, [facility]/HCC V28) 08/17/2019 DX:Rheumatoid arthritis (HCC ) Migraine 08/17/2019 DX:Migraine Aortic atherosclerosis ([facility] V24) 08/17/2019 DX:Aortic atherosclerosis (HCC) Aortic mural thrombus ([facility]/H CC V24, [facility] V28) 08/17/2019 DX:Aortic mural thrombus (HC C) Anxiety 08/17/2019 DX:Anxiety Anemia 08/17/2019 DX:Anemia Depression 08/17/2019 DX:Depression Insomnia 08/17/2019 DX:Insomnia CKD (chronic kidney disease) stage 3, GFR 30-59 ml/min ([facility] V24, [facility] V28) 08/17/2019 DX:CKD (chronic kidney disea se) stage 3, GFR 30-59 ml/min ([facility]) Subclavian artery stenosis ( [facility] V24) 08/17/2019 DX:Subclavian artery stenosi s ([facility]); COMMENT: Right Osteoarthritis 08/17/2019 DX:Osteoarthriti s; COMMENT: [...] superimp osed on chronic kidney disease ([facility] V24) DX:Acute kidney i njury superimposed on [...] Orientation Straight 12/05/2024 3: 28 PM EDT Last Filed Vital Signs Vital Sign Reading Time Taken Comments Blood Pressure 122/61 08/31/2025 10:49 AM EST Pulse 63 08/31/2025 10:49 AM EST Temperature 36.8 C (98.2 F) 08/31/2025 10:49 AM EST Respiratory Rate 16 08/31/2025 10:49 AM EST Oxygen Saturation 100% 08/31/2025 10:49 AM EST Inhaled Oxygen Concentration - - Weight 61.7 kg (136 lb) 07/24/2025 1:38 PM EST Height 154.9 cm (5' 1 ) 07/24/2025 1:38 PM EST Body Mass Index 25.7 07/24/2025 1:38 PM EST Plan of Treatment Upcoming Encounters Date Type Department Care Team (Late st Contact Info) Description 09/28/2025 11:00 AM EST Appointment [facility] [address] [phone] 11/20/2025 9:30 AM EST Office Visit [facility] Hematology Oncology [address] [place] [phone] Carolann Castro MD [address] [place] [address] Health Maintenance Due Date Last Done Comments Breast Cancer Screening 1955 DTaP,Tdap,and Td Vaccines (1 - Tdap) 1975 Zoster Vaccines (1 of 2) 1975 RSV Immunization Adult Patients (1 - Risk 50-74 years 1-dose series) 2006 Pneumococcal Vaccine: 50+ Years (2 of 2 - PCV) 10/16/2020 10/16/2019 Hepatitis C Screening 08/30/2022 Medicare Annual Wellness Visit 08/30/2022 Social Influencers of Health Screening 08/30/2022 Depression Screening 09/21/2024 COVID-19 Vaccine ( season) 2025 06/18/2022, 01/08/2022, 05/12/2021, Additional history exists Hypertension/CHF/CAD Annual BMP Blood Test 03/13/2026 03/13/2025, 02/08/2025, 11/03/2024, Additional history exists Falls Risk Assessment 08/31/2026 08/31/2025 Cholesterol Screening (Lipid Panel) 11/02/2029 11/02/2024 Osteoporosis Screening (Bone Density Screening) 12/18/2032 12/18/2022 Colorectal Cancer Screening: Colonoscopy 09/22/2034 09/22/2024 Influenza Vaccine Completed 07/19/2025, , 07/17/2023, Additional history exists HIB Vaccines Aged Out [...] this topic Medical Devices Implanted Type Area Armed Security Officer Device Identifier Shelf Expiration Date Model / Serial / Lot Femoral Nail Retrograde [id number] Stry-Howm [id number] Implanted:Qty: 1 on 01/28/2023 by Francia Hilario MD Left: Femur [employer] 08/20/2032 [id number] / / [id number] Screw Locking 70x5mm T2 Alpha Stry-Tram [id number] Implanted:Qty: 1 on 01/28/2023 by Francia Hilario MD Left: Femur [employer] 10/21/2032 [id number] / / [id number] Screw Locking 5x50mm Stry-Tram [id number] Implanted:Qty: 1 on 01/28/2023 by Francia Hilario MD Left: Femur [employer] 07/21/2032 [id number] / / [id number] Screw Locking 5x37.5mm Stry-Tram [id number] Implanted:Qty: 1 on 01/28/2023 by Francia Hilario MD Left: Femur [employer] 11/18/2032 [id number] / / [id number] Screw Locking 5x37.5mm Stry-Tram [id number] Implanted:Qty: 1 on 01/28/2023 by Francia Hilario MD Left: Femur [employer] 03/20/2032 [id number] / / [id number] Procedures Procedure Name Priority Date/Time Associated Diagnosis Comments CBC WITH AUTO DIFFERENTIAL Routine 08/29/2025 11:50 AM EST Anemia due to stage 3b chronic kidney disease (CMS/HCC V24, CMS/HCC V28) FOLATE Routine 08/29/2025 11:50 AM EST Anemia due to stage 3b chronic kidney disease (CMS/HCC V24, CMS/HCC V28) VITAMIN B12 Routine 08/29/2025 11:50 AM EST Anemia due to stage 3b chronic kidney disease (CMS/HCC V24, CMS/HCC V28) CBC AND DIFFERENTIAL Routine 08/29/2025 11:50 AM EST Anemia due to stage 3b chronic kidney disease (CMS/HCC V24, CMS/HCC V28) CBC WITH AUTO DIFFERENTIAL Routine 08/02/2025 11:32 AM EST Anemia due to stage 3b chronic kidney disease (CMS/HCC V24, CMS/HCC V28) CBC AND DIFFERENTIAL Routine 08/02/2025 11:32 AM EST Anemia due to stage 3b chronic kidney disease (CMS/HCC V24, CMS/HCC V28) TRANSFERRIN Routine 08/02/2025 11:32 AM EST Anemia due to stage 3b chronic kidney disease (CMS/HCC V24, CMS/HCC V28) FERRITIN Routine 08/02/2025 11:32 AM EST Anemia due to stage 3b chronic kidney disease (CMS/HCC V24, CMS/HCC V28) CBC WITH AUTO DIFFERENTIAL Routine 07/05/2025 11:41 AM EDT Anemia due to stage 3b chronic kidney disease (CMS/HCC V24, CMS/HCC V28) CBC AND DIFFERENTIAL Routine 07/05/2025 11:41 AM EDT Anemia due to stage 3b chronic kidney disease (CMS/HCC V24, CMS/HCC V28) CREATININE, SERUM Routine 03/13/2025 10: 56 AM EDT Anemia due to stage 3b chronic kidney disease (CMS/HCC V24, CMS/HCC V28) LIPID PANEL WITH REFLEX TO DIRECT LDL Routine 11/02/2024 3:36 PM EST Coronary artery disease involving [place] coronary artery of [place] heart without angina pectoris Hyperlipidemia, unspecified hyperlipidemia type COLONOSCOPY Routine 09/22/2024 9:11 AM EST Colon cancer screening BARRERA DEXA AXIAL SKELETON Routine 12/18/2022 7:48 AM EDT Encounter for screening for osteoporosis from Last 3 Months or Most Recently Relevant to Health Maintenance Results * (ABNORMAL) CBC auto differential (08/29/2025 11:50 AM EST) Only the most recent of3 resultswithin the time period is included. WBC 7.8 4.8 - 10.8 K/mcL LAB HEMETOLOGY METHOD 08/29/2025 2:17 PM [facility] RBC 3.40(L) 3.80 - 4.80 M/mcL LAB HEMETOLOGY METHOD 08/29/2025 2:17 PM [facility] Hemoglobin 10.5(L) 11.5 - 16.0 g/dL LAB HEMETOLOGY METHOD 08/29/2025 2:17 PM [facility] Hematocrit 34.0(L) 35.0 - 47.0 % LAB HEMETOLOGY METHOD 08/29/2025 2:17 PM [facility] MCV 98.8(H) 79.0 - 98.0 FL LAB HEMETOLOGY METHOD 08/29/2025 2:17 PM [facility] MCH 30.5 27.0 - 32.0 pcg LAB HEMETOLOGY METHOD 08/29/2025 2:17 PM [facility] MCHC 30.9(L) 32.0 - 37.0 g/dL LAB HEMETOLOGY METHOD 08/29/2025 2:17 PM [facility] RDW 14.6 11.0 - 15.0 % LAB HEMETOLOGY METHOD 08/29/2025 2:17 PM [facility] Platelets 226 130 - 400 K/mcL LAB HEMETOLOGY METHOD 08/29/2025 2:17 PM [facility] MPV 10.5 7.0 - 11.0 FL LAB HEMETOLOGY METHOD 08/29/2025 2:17 PM [facility] NRBC 0.0 <1.0 % LAB HEMETOLOGY METHOD 08/29/2025 2:17 PM [facility] NRBC Absolute 0.00 <0.10 K/mcL LAB HEMETOLOGY METHOD 08/29/2025 2:17 PM [facility] Neutrophils Relative 56.8 % LAB HEMETOLOGY METHOD 08/29/2025 2:17 PM [facility] Lymphocytes Relative 28.9 % LAB HEMETOLOGY METHOD 08/29/2025 2:17 PM [facility] Monocytes Relative 8.7 % LAB HEMETOLOGY METHOD 08/29/2025 2:17 PM [facility] Eosinophils Relative 4.3 % LAB HEMETOLOGY METHOD 08/29/2025 2:17 PM [facility] Basophils Relative 0.9 % LAB HEMETOLOGY METHOD 08/29/2025 2:17 PM [facility] Immature Granulocytes Relative 0.4 % LAB HEMETOLOGY METHOD 08/29/2025 2:17 PM [facility] Neutrophils Absolute 4.45 1.50 - 7.00 K/mcL LAB HEMETOLOGY METHOD 08/29/2025 2:17 PM [facility] Lymphocytes Absolute 2.26 1.00 - 5.00 K/mcL LAB HEMETOLOGY METHOD 08/29/2025 2:17 PM [facility] Monocytes Absolute 0.68 0.20 - 1.00 K/mcL LAB HEMETOLOGY METHOD 08/29/2025 2:17 PM [facility] Eosinophils Absolute 0.34 0.00 - 0.50 K/mcL LAB HEMETOLOGY METHOD 08/29/2025 2:17 PM [facility] Basophils Absolute 0.07 0.00 - 0.20 K/mcL LAB HEMETOLOGY METHOD 08/29/2025 2:17 PM [facility] Immature Granulocytes Absolute 0.03 0.00 - 0.03 K/mcL LAB HEMETOLOGY METHOD 08/29/2025 2:17 PM EST [facility] Blood Venous blood specimen / Unknown Venipuncture / Unknown 08/29/2025 11:50 AM EST 08/29/2025 11:50 AM EST Carolann Castro MD LAB BLOOD ORDERABLES Final R esult Performing Organization Address City/[facility]/ZIP Co de Phone Number [facility] [address] [place] [address], * Folate (08/29/2025 11:50 AM EST) Folate >24.0 >=5.4 ng/ml 08/29/2025 8:12 PM EST [facility] Blood Venous blood specimen / Unknown Venipuncture / Unknown 08/29/2025 11:50 AM EST 08/29/2025 11:50 AM EST Narrative [facility] - 08/29/2025 8:12 PM EST Over the counter supplements containing high doses of biotin may interfere with this assay. If interference is suspected, patients shoud be retested after refraining from biotin supplements for 72 hours. us Carolann Castro MD LAB BLOOD ORDERABLES Final R esult Performing Organization Address City/[facility] Co de Phone Number [facility] [address] [place] [address], * Vitamin B12 (08/29/2025 11:50 AM EST) Vitamin B-12 524 211 - 911 pcg/mL 08/29/2025 9:48 PM EST [facility] Blood Venous blood specimen / Unknown Venipuncture / Unknown 08/29/2025 11:50 AM EST 08/29/2025 11:50 AM EST us Carolann Castro MD LAB BLOOD ORDERABLES Final R esult [facility] [address] [place] [address], * Transferrin (08/02/2025 11:32 AM EST) Transferrin 227 200 - 360 mg/dL 08/05/2025 5:24 AM EST [facility] Comment: Test performed at [facility], [address], [place] [address] Shirlene Scherer MD, PhD - Channel Manager Blood Venous blood specimen / Unknown Venipuncture / Unknown 08/02/2025 11:32 AM EST 08/02/2025 11:32 AM EST us Carolann Castro MD LAB BLOOD ORDERABLES Final R esult [facility] [address] [place] [address] * Ferritin (08/02/2025 11:32 AM EST) Ferritin 93 8 - 252 ng/mL LAB CHEMISTRY METHOD 08/02/2025 3:23 PM EST [facility] Blood Venous blood specimen / Unknown Venipuncture / Unknown 08/02/2025 11:32 AM EST 08/02/2025 11:32 AM EST us Carolann Castro MD LAB BLOOD ORDERABLES Final R esult [facility] [address] [place] [address], [place] [phone] * (ABNORMAL) Creatinine serum (03/13/2025 10:56 AM EDT) Creatinine 1.83(H) 0.50 - 1.10 mg/dL LAB CHEMISTRY METHOD 03/13/2025 4:30 PM EDT [facility] eGFR 30(L) >=60 mL/min/1. 73m2 LAB CHEMISTRY METHOD 03/13/2025 4:30 PM EDT [facility] Comment:Calculation based on the Chronic Kidney Disease Epidemiology Collaboration (CKD-EPI) equation refit without adjustment for race. Blood Venous blood specimen / Unknown Venipuncture / Unknown 03/13/2025 10:56 AM EDT 03/13/2025 10:56 AM EDT us Carolann Castro MD LAB BLOOD ORDERABLES Final R esult [facility] [address] [place] [address], [place] [phone] * (ABNORMAL) Lipid panel with reflex to direct LDL (11/02/2024 3:36 PM EST) Cholesterol 145 0 - 200 mg/dL LAB CHEMISTRY METHOD 11/02/2024 5:01 PM [facility] Triglycerides 249(H) 0 - 150 mg/dL LAB CHEMISTRY METHOD 11/02/2024 5:01 PM [facility] HDL 38(L) >=40 mg/dL LAB CHEMISTRY METHOD 11/02/2024 5:01 PM [facility] LDL Calculated 57 0 - 100 mg/dL LAB CHEMISTRY METHOD 11/02/2024 5:01 PM [facility] VLDL Cholesterol Cecilio 49.8 mg/dL LAB CHEMISTRY METHOD 11/02/2024 5:01 PM [facility] Non HDL Chol. (LDL+VLDL) 107 <145 mg/dL LAB CHEMISTRY METHOD 11/02/2024 5:01 PM [facility] Chol/HDL Ratio 3.8 0.0 - 4.4 LAB CHEMISTRY METHOD 11/02/2024 5:01 PM [facility] Blood Venous blood specimen / Unknown Venipuncture / Unknown 11/02/2024 3:36 PM EST 11/02/2024 4:07 PM EST Dania Hamm NP LAB BLOOD ORDERABLES Final Result [facility] ([facility]) [facility] [address] [place] [address], [place] [phone] * COLONOSCOPY Anesthesia - MAC; [facility] ENDOSCOPY (09/22/2024 9:11 AM EST) Anatomical Region [...] pathology results. Narrative 09/22/2024 9:11 AM EST [facility] GI Patient Name: Frida Garcia Procedure [...] not prolapse). Procedure Code(s): --- Professional --- 37813, Colonoscopy, flexible; with removal of tumor(s), polyp(s), or other lesion(s) by snare technique Diagnosis Code(s): --- Professional --- D50.9, Iron deficiency anemia, unspecified D12.1, Benign neoplasm of appendix CPT copyright 2020 [employer]. All rights reserved. The codes documented in this report are preliminary and upon folder machine adjuster review may be revised to meet current compliance requirements. Sanjuana Mccormick MD 09/22/2024 9:11:24 AM This report has been signed electronically.Sanjuana Mccormick MD Number of Addenda: 0 Note Initiated On: 09/22/2024 8:50 AM Scope In: Scope Out: Endoscopy Department at [facility] - [address] [place] [phone] Procedure Note Sanjuana Mccormick MD - 09/22/2024 [facility] GI Patient Name: Frida Garcia Procedure [...] not prolapse). 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 All rights reserved. The codes documented in this report are preliminary and upon folder machine adjuster reviewmay be revised to meet current compliance requirements. Sanjuana Mccormick MD 09/22/2024 9:11:24 AM This report has been signed electronically.Sanjuana Mccormick MD Number of Addenda: 0 Note Initiated On: 09/22/2024 8:50 AM Scope In: Scope Out: Endoscopy Department at [facility] - [address] [place] [phone] IMPRESSION: - The examined portion of the ileum was normal. - One 2 mm polyp at the appendiceal orifice,removed with a cold snare. Resected and retrieved. - Diverticulosis in the sigmoid colon. - Internal hemorrhoids. Recommendation: - Await pathology results. - Repeat colonoscopy for surveillance based on pathology results. us Sanjuana Mccormick MD GI~PROCEDURE ORDERABLES Final Result * BARRERA DEXA AXIAL SKELETON (12/18/2022 7:48 AM EDT) Anatomical Region Laterality Modality Mammography 12/17/2022 1:11 PM EDT Narrative 12/18/2022 7:48 AM EDT [facility] Diagnostic Imaging Department [address] [place] [id number] Patient: FRIDA GARCIA /Age/Sex: 1955 - 67 - F Unit#: [id number] Location/Status: SPDIMAM/REG CLI Mnemonic/Ordering Site: [facility]/SPMAM Ordering Physician: HAYLEE VAIL NP Barrera Dexa Axial Skeleton - 12/17/22 - 1416 [...] probability of hip fracture of 7.3%. Code 99980 Dictating Physician: JASMINA PARR MD Electronically Signed by: JASMINA PARR MD Dic Date/Time: 12/18/2247 Sign date/Time: 12/18/2248 Procedure Note Jasmina Parr MD - 10/23/2023 [facility] Diagnostic Imaging Department [address] [place] [address] Patient: FRIDA GARCIA Aleja ErvinB./Age/Sex: 1955 - 67 - F Unit#: [id number] Location/Status: SPDIMAM/REG CLI [facility] Ordering Physician: HAYLEE VAIL NP Barrera Dexa Axial Skeleton - 12/17/22 1416 HISTORY: The patient is a 67-year-old [...] density of the femurs bilaterally is 0.717 gm/dj4xyoor is 71% of that of young normals and 82% of that of age matched controls.This yields a T-score of -2.3 and a Z-score of -1.3 which is diagnostic of osteopenia. IMPRESSION: 1. Osteopenia. 2. FRAX analysis yields a 10-year probability of major osteoporoticfracture of 26.4% and a 10-year probability of hip fracture of 7.3%. 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
--- OUTSIDE RECORDS SUMMARY | 2025-09-07 16:08 | XMS_ITS | Clinical Summary ---
Author Organization [facility] Prior to 02/18/[address] [place] [id number] Care Team Providers Care Conveyor Maintenance Mechanic Name Role Phone Hilary Vail NP Primary Care Provider [phone] Allergies Active Allergy Reactions Criticality Noted Date [...] this topic Medical Devices Implanted Type Area Assembly Stock Supervisor Device Identifier Shelf Expiration Date Model / Serial / Lot Femoral Nail Retrograde [id number] Stry-Howm [id number] - [id number] Implanted:Qty: 1 on 01/28/2023 by Francia Hilario MD at [facility] [place] [facility] Left: Femur [employer] 08/20/2032 [id number] / / [id number] Screw Locking 70x5mm T2 Alpha Stry-Tram [id number] 69 - [id number] Implanted:Qty: 1 on 01/28/2023 by Francia Hilario MD at [facility] [place] [facility] Left: Femur [employer] 10/21/2032 [id number] / / [id number] Screw Locking 5x50mm Stry-Tram [id number] - [id number] Implanted:Qty: 1 on 01/28/2023 by Francia Hilario MD at [facility] [place] [facility] Left: Femur [employer] 07/21/2032 2360-5050S / / [id number] Screw Locking 5x37.5mm Stry-Tram [id number] 58 - [id number] Implanted:Qty: 1 on 01/28/2023 by Francia Hilario MD at [facility] [place] [facility] Left: Femur [employer] 11/18/2032 2360-5037S / / [id number] Screw Locking 5x37.5mm Stry-Tram [id number] 58 - [id number] Implanted:Qty: 1 on 01/28/2023 by Francia Hilario MD at [facility] [place] [facility] Left: Femur [employer] 03/20/2032 2360-5037S / / [id number] Advance Directives For more information, please contact: [phone] Latest Code Status on File Code Status Date Activated Date Inactivated Comments Full Code 01/28/2023 10:09 AM 01/29/2023 7:12 PM This code status was ascertained in the following way: discussion with patient . Care Teams Conveyor Maintenance Mechanic Relationship Specialty Start Date End Date Hilary Vail NP [address] [place] [address] PCP - General Nurse Practitioner 01/28/23
== END 2025-09-07 12:48 | disposition home or self-care (01) ==
LOC: HO.HSMS 12:16
PROVIDERS: Visit Provider Psychiatry & Neurology Neurology
DX: G43.109 Migraine with aura, not intractable, without status migrainosus (principal); R51.9 Headache, unspecified
CPT/HCPCS: 99214; G2211

== ENCOUNTER → 2025-09-07 12:15 | Outpatient (BNVA) | payer MEDICARE, SELFPAY | PROVIDERS: Visit Provider Psychiatry & Neurology Neurology | DX: G43.109 Migraine with aura, not intractable, without status migrainosus (principal); Z79.899 Other long term (current) drug therapy | CPT/HCPCS: 99212 ==